=== PATIENT | male | born 1940 | race Caucasian/White ===

== ENCOUNTER 2017-05-19 09:33 | Inpatient (IN) | payer OTHER ==
[2017-05-19] MEDS ORDERED: SODIUM CHLORIDE 1,000 ML IV STA (10:00)
[2017-05-19] MEDS ORDERED: CEFTRIAXONE 1 GM in DEXTROSE 5%-WATER - 50 ML IVPB ONE (10:01)
[2017-05-19] MEDS ORDERED: AZITHROMYCIN IVPB 500 MG in DEXTROSE 5%-WATER - 250 ML IVPB ONE (10:01)
[2017-05-19] MEDS ORDERED: ACETAMINOPHEN 1000 MG/100 ML VIAL (NON FORMULARY) IVPB ONE (10:01)
[2017-05-19 10:07] VITALS: BMI 33.9
--- NOTE | 2017-05-19 10:09 | PDOC ---
History of Present Illness <Kim Persaud - Last Filed: 05/19/17 12:22> - General History Source: Patient Exam Limitations: No Limitations - History of Present Illness Initial Comments: 05/19/17 10:09 Patient is a 77M with history of CHF, afib (on no anticoagulation) here today complaining of shortness of breath. He describes a worsening cough over the past 2-3 days with worsening today. The cough is productive with red-tinged sputum. He reports chest pain associated with coughing. He reports fevers, chills. Denies history of COPD. Denies nausea, vomiting. Denies leg swelling, rash. PCP: Dianelys Admitting: Praveen Cards: Angelo <Cash Aguilar - Last Filed: 05/19/17 14:12> - General Chief Complaint: Shortness of Breath Stated Complaint: DIFFICULTY BREATHING Time Seen by Provider: 05/19/17 09:41 Past History <Kim Persaud - Last Filed: 05/19/17 12:22> - Past Medical History Anemia: No Asthma: No Cancer: No Cardiac Disorders: Yes (AFIB) CVA: No COPD: No CHF: No Dementia: No Diabetes: No GI Disorders: No Disorders: No HTN: Yes Hypercholesterolemia: Yes Liver Disease: No Seizures: No Thyroid Disease: No - Surgical History Abdominal Surgery: No Appendectomy: No Cardiac Surgery: No Cholecystectomy: No Lung Surgery: No Neurologic Surgery: No Orthopedic Surgery: No - Suicide/Smoking/Psychosocial Hx Smoking Status: No Smoking History: Former smoker Have you smoked in the past 12 months: No Number of Cigarettes Smoked Daily: 0 Hx Alcohol Use: Yes Drug/Substance Use Hx: No Substance Use Type: None Hx Substance Use Treatment: No <Cash Aguilar - Last Filed: 05/19/17 14:12> - Past Medical History Allergies/Adverse Reactions: Allergies Allergy/AdvReac Type Severity Reaction Status Date / Time No Known Allergies Allergy Verified 10/23/11 15:17 Home Medications: Ambulatory Orders Furosemide [Lasix] 40 mg PO DAILY 10/23/11 Amlodipine Bes/Olmesartan Med [Deanne 5-20 mg Tablet] 1 each PO DAILY 05/19/17 Aspirin [ASA -] 81 mg PO DAILY 05/19/17 Atorvastatin Calcium 80 mg PO DAILY 05/19/17 Dabigatran Etexilate Mesylate [Pradaxa -] 150 mg PO BID 05/19/17 Metoprolol Tartrate 50 mg PO BID 05/19/17 Review of Systems - Review of Systems Comments:: 05/19/17 10:11 GENERAL/CONSTITUTIONAL: No fever or chills. No weakness. HEAD, EYES, EARS, NOSE AND THROAT: No change in vision. No sore throat. CARDIOVASCULAR: Positive for chest pain and shortness of breath RESPIRATORY: Positive for cough, hemoptysis. GASTROINTESTINAL: No nausea, vomiting, diarrhea or constipation. GENITOURINARY: No dysuria, frequency, or change in urination. MUSCULOSKELETAL: No joint or muscle swelling or pain. No neck or back pain. SKIN: No rash NEUROLOGIC: No headache, vertigo, loss of consciousness, or change in strength/ sensation. ALLERGIC/IMMUNOLOGIC: No hives or skin allergy. <Cash Aguilar - Last Filed: 05/19/17 14:12> *Physical Exam - Vital Signs Last Vital Signs Temp Pulse Resp BP Pulse Ox 101.3 F H 127 H 22 159/80 94 L 05/19/17 09:58 05/19/17 11:32 05/19/17 11:32 05/19/17 11:32 05/19/17 11:32 <Kim Persaud - Last Filed: 05/19/17 12:22> - Physical Exam Comments: 05/19/17 10:13 GENERAL: Awake, alert, and fully oriented, in moderate distress HEAD: No signs of trauma, normocephalic, atraumatic EYES: PERRLA, EOMI, sclera anicteric, conjunctiva clear ENT: Auricles normal inspection, hearing grossly normal, nares patent, oropharynx clear without exudates. Moist mucosa NECK: Normal ROM, supple, no lymphadenopathy, JVD, or masses LUNGS: Tachypneic, speaks full sentences, rhonchi bilaterally HEART: Regular rate and rhythm, normal S1 and S2, no murmurs, rubs or gallops, peripheral pulses normal and equal bilaterally. ABDOMEN: Soft, nontender, normoactive bowel sounds. No guarding, no rebound. No masses EXTREMITIES: Normal inspection, Normal range of motion, no edema. No clubbing or cyanosis. NEUROLOGICAL: Cranial nerves II through XII grossly intact. Normal speech, no focal sensorimotor deficits SKIN: Warm, Dry, normal turgor, no rashes or lesions noted. <Cash Aguilar - Last Filed: 05/19/17 14:12> ED Treatment Course - LABORATORY CBC & Chemistry Diagram: 05/19/17 10:30 05/19/17 10:30 - ADDITIONAL ORDERS Additional order review: Laboratory Results 05/19/17 05/19/17 05/19/17 11:05 10:30 10:30 PT with INR 12.50 H INR 1.11 PTT (Actin FS) 27.9 D Sodium 137 Potassium 3.4 L D Chloride 103 Carbon Dioxide 24 Anion Gap 10 BUN 17 D Creatinine 0.9 D Creat Clearance w eGFR > 60 Random Glucose 93 Lactic Acid 1.5 Calcium 8.2 L Total Bilirubin 0.6 D AST 17 ALT 15 D Alkaline Phosphatase 80 D Troponin I 0.07 H D Total Protein 6.5 Albumin 3.6 Urine Color Urine Appearance Urine pH Ur Specific [place] Urine Protein Urine Glucose (UA) Urine Ketones Urine Blood Urine Nitrite Urine Bilirubin Urine Urobilinogen Ur Leukocyte Esterase 05/19/17 10:05 PT with INR INR PTT (Actin FS) Sodium Potassium Chloride Carbon Dioxide Anion Gap BUN Creatinine Creat Clearance w eGFR Random Glucose Lactic Acid Calcium Total Bilirubin AST ALT Alkaline Phosphatase Troponin I Total Protein Albumin Urine Color Yellow Urine Appearance Clear Urine pH 5.0 Ur Specific [place] 1.024 Urine Protein Negative Urine Glucose (UA) Negative Urine Ketones 2+ H Urine Blood Negative Urine Nitrite Negative Urine Bilirubin Negative Urine Urobilinogen 4.0 e.u/dl Ur Leukocyte Esterase Negative 05/19/17 10:50 Influenza Types A,B Antigen (BEULAH) - Final Nasopharyngeal Swab - Final 05/19/17 10:30 RBC 4.39 MCV 95.1 MCHC 33.6 RDW 14.0 MPV 7.9 D Neutrophils % 72.2 Lymphocytes % 15.1 D Monocytes % 10.6 H Eosinophils % 1.2 Basophils % 0.9 - Medications Given in the ED: ED Medications Discontinued Medications Generic Name Dose Route Start Last Admin Trade Name Freq PRN Reason Stop Dose Admin Acetaminophen 1,000 mg 05/19/17 10:01 05/19/17 10:50 Ofirmev Injection - IVPB 05/19/17 10:02 1,000 mg ONCE ONE Administration Albuterol/Ipratropium 1 amp 05/19/17 10:34 05/19/17 10:50 Duoneb - NEB 05/19/17 10:35 1 amp ONCE ONE Administration Azithromycin 500 mg/ Dextrose 250 mls @ 250 mls/hr 05/19/17 10:01 05/19/17 10 :50 IVPB 05/19/17 11:00 250 mls/hr ONCE ONE Administration Ceftriaxone Sodium 1 gm/ 50 mls @ 100 mls/hr 05/19/17 10:01 05/19/17 10:50 Dextrose IVPB 05/19/17 10:30 100 mls/hr ONCE ONE Administration Sodium Chloride 1,000 mls @ 1,000 mls/hr 05/19/17 10:00 05/19/17 10:50 Normal Saline - IV 05/19/17 10:59 1,000 mls/hr ASDIR STA Administration - Consult/PCP Time Called: 12:20 (placed a called to Dr. Morton) <Kim Persaud - Last Filed: 05/19/17 12:22> - LABORATORY CBC & Chemistry Diagram: 05/19/17 10:30 05/19/17 10:30 - RADIOLOGY Radiology Studies Ordered: Category Date Time Status CHEST X-RAY PORTABLE* [RAD] Stat Radiology 05/19/17 10:00 Ordered <Cash Aguilar - Last Filed: 05/19/17 14:12> Medical Decision Making - Critical Care Time Total Critical Care Time (minutes): 30 Critical Care Statement: The care of this patient involved high complexity decision making to prevent further life threatening deterioration of the patient 's condition and/or to evaluate & treat vital organ system(s) failure or risk of failure. - Medical Decision Making 05/19/17 10:15 Patient is 77M with history of CHF and afib (no anticoagulation) here today complaining of respiratory distress. Febrile to 102, tachycardic, tachypneic, BP stable. Bedside ultrasound shows normal lung sliding with no b-lines or signs of CHF exacerbation. Differential diagnosis is weighted towards sepsis secondary to pneumonia. Will cover with ceftriaxone and azithromycin, patient has no recent hospitalization or antibiotic use, coming from [facility]. Will treat with 1L of fluids and re-evaluate, not doing full dose of fluids upfront given patient's CHF history. Septic order set initiated. 05/19/17 10:21 EKG shows atrial fibrillation with rvr, rate 125. No st elevations/depressions. Left axis deviation. Q waves in inferior leads, old when compared to prior EKG. Believe patient's afib with rvr is secondary to fever and fluid status. Will not attempt to rate control. Will use tylenol and fluids to address likely root cause of tachycardia. 05/19/17 10:41 CXR shows increased lung markings, no hyperexpansion. No clear infiltrate, but concerned for right lower lobe. No signs of heart failure. Will give patient duoneb. 05/19/17 11:42 Flu negative. 05/19/17 11:43 Laboratory Tests 05/19/17 05/19/17 05/19/17 10:05 10:30 10:30 WBC 5.7 Hgb 14.0 Hct 41.7 Plt Count 175 D INR 1.11 Potassium BUN Creatinine Creat Clearance w eGFR Urine Nitrite Negative Ur Leukocyte Esterase Negative 05/19/17 10:30 WBC Hgb Hct Plt Count INR Potassium 3.4 L D BUN 17 D Creatinine 0.9 D Creat Clearance w eGFR > 60 Urine Nitrite Ur Leukocyte Esterase CBC normal. INR normal. CMP shows mild hypokalemia. UA clear. Troponin and lactic acid pending. 05/19/17 12:08 Laboratory Tests 05/19/17 05/19/17 10:30 11:05 Lactic Acid 1.5 Troponin I 0.07 H D Troponin elevated, suspect demand. Lactic acid normal. 05/19/17 12:11 Patient reassessed, reports breathing easier. Less tachypneic. HR is low 100s. 05/19/17 12:[address] Morton. 05/19/17 14:12 Patient now afebrile. HR in 90s. <Cash Aguilar - Last Filed: 05/19/17 14:12> *DC/Admit/Observation/Transfer <Kim Persaud - Last Filed: 05/19/17 12:22> - Discharge Dispostion Admit: Yes <Cash Aguilar - Last Filed: 05/19/17 14:12> Diagnosis at time of Disposition: Pneumonia - Discharge Dispostion Condition at time of disposition: Stable
[2017-05-19] MEDS ORDERED: CEFTRIAXONE 1 GM/50 ML BAG ONE (10:16)
[2017-05-19] MEDS ORDERED: ACETAMINOPHEN INJECTION 100 ML IVPB ONE (10:16)
[2017-05-19] MEDS ORDERED: AZITHROMYCIN IVPB 250 ML IVPB ONE (10:16)
--- NOTE | 2017-05-19 10:20 | PDOC ---
Attending Attestation - Resident Resident Name: Cash Aguilar - ED Attending Attestation I have performed the following: I have examined & evaluated the patient, The case was reviewed & discussed with the resident, I agree w/resident's findings & plan, Exceptions are as noted - HPI HPI: 05/19/17 10:20 77y M hx of hx ov CHF, afib (not on ac), presents with complaint of worsening cough proiductive of red tingued sputum, and cp associated with his coughs, no associated leg swelling. +fever/chlils, no hx of n/v, copd, abd pain, n/v on exam: general: moderate respiratory distress cardiac: tachcyardic, irregular pulm: diffuse wheezing, no rales, moderate respiratory distress abd: soft nontender ext: trace edema, neg homans b/l suspect afib w/ rvr is in response to fever likely pna will obtain sepsis labs, cxr placed on gambling monitor will treat with antipyretic, fluids, abx anticipate admission - Physicial Exam PE: 05/23/17 10:07 see above - Critical Care Time Total Critical Care Time: 35 Critical Care Statement: The care of this patient involved high complexity decision making to prevent further life threatening deterioration of the patient 's condition and/or to evaluate & treat vital organ system(s) failure or risk of failure. - Medical Decision Making 05/19/17 13:38 pts labs reviewed no leukoctosis noted HR improved relative flower presentation. will continue to monitor cxr noted for ?r sided basilar changes read as neg by rads, but based on the pts sypmtoms, fever, will treat for pna will admit for further management Heart Score/ECG Review - ECG Impressions Comment:: 05/19/17 10:27 Twelve-lead EKG was performed and reviewed by me. Irregular irregular rate of 125 Q waves in anterior leads Abnormal R wave progression Impression A. fib with RVR
[2017-05-19] MEDS ORDERED: ALBUTEROL SO4 2.5/IPRATROPIUM 0.5 INH SOL 3 ML VIAL.NEB. NEB ONE ×3 (10:34→21:00)
[2017-05-19 10:57] LABS: BASO % 0.9 % (0-2.0); EOS % 1.2 % (0-4.5); HEMATOCRIT 41.7 % (35.4-49); LYMPH % 15.1 % (8-40); MCHC 33.6 g/dl (32.0-35.9); MEAN CELL VOLUME 95.1 fl (80-96); MEAN PLT VOLUME 7.9 fl (7.5-11.1); MONO % 10.6 % (3.8-10.2); NEUT % 72.2 % (42.8-82.8); PLATELET COUNT 175 K/MM3 (134-434); RBC 4.39 M/mm3 (4.00-5.60); WHITE BLOOD COUNT 5.7 K/mm3 (4.0-10.0)
[2017-05-19 11:11] LABS: INR 1.11 (0.82-1.09); PROTHROMBIN TIME (PATIENT) 12.5 SEC (9.98-11.88)
[2017-05-19 11:13] LABS: URINE APPEARANCE CLEAR; URINE BILIRUBIN NEGATIVE (<2.0 mg/dL); URINE BLOOD NEGATIVE (NEGATIVE); URINE COLOR YELLOW; URINE GLUCOSE (UA) NEGATIVE (NEGATIVE); URINE KETONE 2+ (NEGATIVE); URINE LEUK ESTERASE NEGATIVE (NEGATIVE); URINE NITRITE NEGATIVE (NEGATIVE); URINE PROTEIN NEGATIVE (NEGATIVE); URINE UROBILINOGEN 4.0 E.U/dl mg/dL (0.2-1.0)
[2017-05-19 11:15] LABS: ACTIVATED PTT 27.9 SECONDS (26.9-34.4)
[2017-05-19 11:24] LABS: ALBUMIN 3.6 g/dl (3.4-5.0); ANION GAP 10 (8-16); BLOOD UREA NITROGEN 17 mg/dL (7-18); CALCIUM 8.2 mg/dL (8.5-10.1); CHLORIDE 103 mmol/L (98-107); CO2 24 mmol/L (21-32); CREATININE 0.9 mg/dL (0.7-1.3); GLUCOSE,RANDOM 93 mg/dL (74-106); POTASSIUM 3.4 mmol/L (3.5-5.1); SGOT/AST 17 U/L (15-37); SGPT/ALT 15 U/L (12-78); SODIUM 137 mmol/L (136-145)
[2017-05-19 11:26] LABS: ALK PHOS 80 U/L (45-117); BILIRUBIN,TOTAL 0.6 mg/dL (0.2-1.0); TOT PROT 6.5 g/dl (6.4-8.2)
[2017-05-19 13:13] LABS: VENOUS PH 7.4 (7.32-7.42)
--- NOTE | 2017-05-19 21:23 | EKG ---
Test Reason : Blood Pressure : / mmHG Vent. Rate : 125 BPM Atrial Rate : 077 BPM P-R Int : 000 ms QRS Dur : 092 ms QT Int : 320 ms P-R-T Axes : 000 -57 081 degrees QTc Int : 461 ms ATRIAL FIBRILLATION WITH RAPID VENTRICULAR RESPONSE LEFT AXIS DEVIATION INFERIOR INFARCT (CITED ON OR BEFORE 23-OCT-2011) ANTERIOR INFARCT (CITED ON OR BEFORE 23-OCT-2011) ABNORMAL ECG WHEN COMPARED WITH ECG OF 23-OCT-2011 16:16, T WAVE INVERSION LESS EVIDENT IN LATERAL LEADS Confirmed by HORACIO MASON MD ([id number]) on 05/19/2017 9:23:07 PM Referred By: Confirmed By:HORACIO MASON MD
[2017-05-19] MEDS ORDERED: FUROSEMIDE 40 MG TABLET (FP) PO SCH (21:30)
[2017-05-19] MEDS ORDERED: ACETAMINOPHEN 325 MG TABLET (FP) PO PRN (21:33)
[2017-05-19] MEDS: METOPROLOL TARTRATE 50 MG TABLET (FP) PO SCH (21:43)
[2017-05-19] MEDS: HEPARIN NA (PORCINE) 5,000 UNITS/ML 1ML VIAL SQ SCH (22:14)
[2017-05-19] MEDS ORDERED: diphenhydrAMINE HCL 25 MG CAPSULE (FP) PO ONE (22:15)
[2017-05-20] MEDS: ALBUTEROL SO4 2.5/IPRATROPIUM 0.5 INH SOL 3 ML VIAL.NEB. NEB PRN ×3 (05:30→20:45)
[2017-05-20 07:03] LABS: BASO % 0.5 % (0-2.0); EOS % 0.4 % (0-4.5); HEMATOCRIT 41.4 % (35.4-49); LYMPH % 18.3 % (8-40); MCH 32.2 pg (25.7-33.7); MCHC 33.7 g/dl (32.0-35.9); MEAN CELL VOLUME 95.6 fl (80-96); MEAN PLT VOLUME 8.4 fl (7.5-11.1); MONO % 12.9 % (3.8-10.2); NEUT % 67.9 % (42.8-82.8); PLATELET COUNT 183 K/MM3 (134-434); RBC 4.33 M/mm3 (4.00-5.60); RDW 14.5 % (11.9-15.9); WHITE BLOOD COUNT 6.6 K/mm3 (4.0-10.0)
[2017-05-20 07:33] LABS: ALBUMIN 3.6 g/dl (3.4-5.0); ANION GAP 8 (8-16); BLOOD UREA NITROGEN 13 mg/dL (7-18); CALCIUM 8.1 mg/dL (8.5-10.1); CHLORIDE 100 mmol/L (98-107); CO2 28 mmol/L (21-32); CREATININE 0.9 mg/dL (0.7-1.3); GLUCOSE,RANDOM 95 mg/dL (74-106); POTASSIUM 3.6 mmol/L (3.5-5.1); SGOT/AST 29 U/L (15-37); SGPT/ALT 15 U/L (12-78); SODIUM 136 mmol/L (136-145)
[2017-05-20 07:35] LABS: ALK PHOS 75 U/L (45-117); BILIRUBIN,TOTAL 0.7 mg/dL (0.2-1.0); TOT PROT 6.7 g/dl (6.4-8.2)
[2017-05-20] MEDS: METOPROLOL TARTRATE 50 MG TABLET (FP) PO SCH ×2 (08:10→21:44)
[2017-05-20] MEDS: TAMSULOSIN HCL 0.4 MG CAP.ER.24H (FP) PO SCH (08:10)
--- NOTE | 2017-05-20 08:49 | CON.CARD ---
Consult Consult Specialty:: Cardiology Referred by:: Dr. 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 As a result of his infection, he is now in AF w/ RVR. He denies chest pain, palps; No edema. + Cough productive of dark yellow phlegm, blood tinged for 2 days. 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: Alzheimer's, CVA, Dementia, Migraine, Multiple Sclerosis, Peripheral Neuropathy, Parkinson's, Seizure, Syncope, TIA, Vertigo, Other Cardio/Vascular: Yes: AFIB (not on chronic AC due to fall w/ brain bleed), CAD ( Prior PCI LAD approximately 5 years ago), CHF (chronic diastolic), HTN Gastrointestinal: No: Ascites, Cancer, Constipation, Crohn's Disease, Diverticulitis, Diverticulosis, Esophageal Varices, Gastritis, GERD, GI Bleed, Hemorrhoids, Hiatal Hernia, Inflamatory Bowel Disease, Irritable Bowel Disease, Pancreatitis, Peptic Ulcer Disease, Ulcerative Colitis, Other Hepatobiliary: No: Cirrhosis, Cholelithiasis, Cholecystitis, Choledocholithiasis , Hepatitis A, Hepatitis B, Hepatitis C, Other Renal/: Yes: BPH Infectious Disease: No: AIDS, C-Diff, Herpes Zoster, HIV, MRSA, STD's, Tuberculosis, VREF, Other Psych: No: Addictions, Anxiety, Bipolar, Depression, Panic, Psychosis, Schizophrenia, Other Musculoskeletal: No: Bursitis, Chronic low back pain, Hemiparesis, Hemiplegia, Osteoarthritis, Paraplegia, Other Rheumatology: No: Fibromyalgia, Gout, Lupus, Rheumatoid Arthritis, Sarcoidosis, Vasculitis, Other ENT: No: Allergic Rhinitis, Sinusitis, Other Endocrine: No: Alexys's Disease, James's Disease, Diabetes Insipidus, Diabetes Mellitus, Hyperparathyroidism, Hyperthyroidism, Hypothyroidism, Osteopenia, SIADH, Other Dermatology: No: Basal Cell, Cellulitis, Eczema, Melanoma, Psoriasis, Squamous Cell, Other - Alcohol/Substance Use Hx Alcohol Use: Yes - Smoking History Smoking history: Former smoker Have you smoked in the past 12 months: No Aproximately how many cigarettes per day: 0 - Social History 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 Medications - Allergies Allergies/Adverse Reactions: Allergies Allergy/AdvReac Type Severity Reaction Status Date / Time No Known Allergies Allergy Verified 10/23/11 15:17 - Home Medications Home Medications: Ambulatory Orders Furosemide [Lasix] 40 mg PO DAILY 10/23/11 Aspirin [ASA -] 81 mg PO DAILY 05/19/17 Losartan Potassium 50 mg PO DAILY 05/19/17 Metoprolol Tartrate 50 mg PO BID 05/19/17 Rosuvastatin Calcium 10 mg PO DAILY 05/19/17 Silodosin [Rapaflo] 8 mg PO DAILY 05/19/17 Family Disease History - Family Disease History Family History: Unremarkable (not pertinent to this presentation) Review of Systems - Review of Systems Constitutional: reports: Fever, Weakness HENT: denies: No Symptoms, Difficult Swallowing, Ear Discharge, Ear Pain, Epistaxis, Gingival Bleeding, Hearing Loss, Mouth Swelling, Nasal Congestion, Ocular Prosthesis, Throat Pain, Toothache, Ringing in Ears, Other Neck: denies: No Symptoms, Decreased ROM, Lumps, Pain on Movement, Stiffness, Swollen Glands, Tenderness, Other Cardiovascular: denies: No Symptoms, Chest Pain, Edema, Palpitations, Shortness of Breath, Other Respiratory: reports: Cough, SOB on Exertion Gastrointestinal: denies: No Symptoms, Abdominal Pain, Bloating, Constipation, Diarrhea, Dysphagia, Indigestion, Melena, Nausea, Rectal Bleeding, Vomiting, Vomiting Blood, Other Genitourinary: denies: No Symptoms, Burning, Discharge, Dysuria, Flank Pain, Frequency, Hematuria, Incontinence, Lesions, Menses, Pain, Testicular Mass, Testicular Pain, Testicular Swelling, Urgency, Vaginal Bleeding, Other Breasts: denies: No Symptoms Reported, See HPI, Breast Implants, Discharge from Nipple, Lumps, Pain, Skin Changes, Other Musculoskeletal: denies: No Symptoms, Back Pain, Crepitus, Decreased ROM, Extremity Pain, Joint Pain, Joint Swelling, Muscle Pain, Muscle Cramps, Muscle Weakness, Other Integumentary: denies: No Symptoms, Blister, Bruising, Change in Color, Eczema, Erythema, Incision, Lesions, Lump, Pallor, Pruritis, Rash, Wound, Other Hematology/Lymphatic: denies: No Symptoms, Easily Bruised, Excessive Bleeding, Swollen Glands, Other Psychiatric: denies: No Symptoms, Altered Sleep Pattern, Anxiety, Depression, Hallucinations, Panic, Paranoia, Suicidal, Other - Risk Factors Known Risk Factors: Yes: Hypertension, Smoking, Other (known CAD) Vital Signs: Vital Signs Temperature 98.1 F 05/20/17 06:00 Pulse Rate 113 H 05/20/17 06:00 Respiratory Rate 20 05/20/17 06:00 Blood Pressure 146/98 05/20/17 06:00 O2 Sat by Pulse Oximetry (%) 95 05/19/17 21:00 Constitutional: Yes: No Distress, Calm Eyes: Yes: Conjunctiva Clear Respiratory: Yes: Other (left basilar rales, scattered rhonchi) Gastrointestinal: Yes: Soft, Abdomen, Obese JVD: No Carotid Bruit: No Heart Sounds: Yes: S1, S2 (irregular) Edema: No Peripheral Pulses WNL: Yes Neurological: Yes: Alert, Oriented ...Motor Strength: WNL Psychiatric: Yes: WNL - Other Data Labs, Other Data: CBC, BMP 05/20/17 06:45 05/20/17 06:45 INR, PTT INR 1.11 (0.82-1.09) 05/19/17 10:30 Troponin, BNP 05/19/17 05/19/17 05/19/17 10:30 19:28 23:10 Troponin I 0.07 H D 0.06 H 0.10 H D 05/20/17 06:45 Troponin I Cancelled Troponin, BNP 05/19/17 05/19/17 05/19/17 10:30 19:28 23:10 Troponin I 0.07 H D 0.06 H 0.10 H D 05/20/17 06:45 Troponin I Cancelled Echo: Pending Prior Cardiac Procedures: PTCA with Stent Ejection Fraction %: LVEF > or = 40 % Imaging - Results Chest X-ray: Image Reviewed EKG: Image Reviewed (AFIB with NSST changes) Problem List - Problems (1) Pneumonia Code(s): J18.9 - PNEUMONIA, UNSPECIFIED ORGANISM Qualifiers: Lung location: unspecified part of lung (2) Atrial fibrillation Code(s): I48.91 - UNSPECIFIED ATRIAL FIBRILLATION Qualifiers: Atrial fibrillation type: permanent Qualified Code(s): I48.2 - Chronic atrial fibrillation (3) Chronic diastolic CHF (congestive heart failure) Code(s): I50.32 - CHRONIC DIASTOLIC (CONGESTIVE) HEART FAILURE (4) Hypertensive heart disease Code(s): I11.9 - HYPERTENSIVE HEART DISEASE WITHOUT HEART FAILURE Qualifiers: Heart failure type: diastolic Heart failure chronicity: chronic (5) Coronary artery disease Code(s): I25.10 - ATHSCL HEART DISEASE OF [place] CORONARY ARTERY W/O ANG PCTRS Qualifiers: Coronary Disease-Associated Artery/Lesion type: [place] artery Associated angina: without angina (6) Stented coronary artery Code(s): Z95.5 - PRESENCE OF CORONARY ANGIOPLASTY IMPLANT AND GRAFT (7) Elevated troponin Code(s): R74.8 - ABNORMAL LEVELS OF OTHER SERUM ENZYMES Assessment/Plan IMP: Atrial fibrillation, permanent, now with RVR secondary to fever from suspected PNA Underlying CAD with h/o PCI Chronic diastolic CHF, with mild exacerbation due to AF w/ RVR REC: 1. AF w/ RVR: -Lopressor 5mg IV x1 now -Cont. Metoprolol 50mg BID -Telemetry -Not on chronic full AC due to prior fall w/ traumatic ICH (patient refused to resume AC) -Cont. ASA 2. Suspected PNA: -Recommend chest CT as CXR does not reveal clear infiltrate -Pulmonary consult -Follow cultures -Abx as per PMD -Minimize use albuterol if possible. Recommend Xopenex if available. -DVT prophylaxis 3. Chronic diastolic CHF: -CXR does show mildly increased PVC -He will also be receiving extra volume with IV abx -Will switch lasix to 40 mg IV daily, BP can tolerate. -Daily lytes -repeat echo.
[2017-05-20] MEDS ORDERED: METOPROLOL TARTRATE 5 MG/5 ML VIAL IVPUSH PRN (08:57)
[2017-05-20] MEDS ORDERED: cefTRIAXone SODIUM 1 GM VIAL ONE (09:14)
[2017-05-20] MEDS ORDERED: DEXTROSE 5%-WATER - 50 ML IVPB ONE (09:14)
[2017-05-20] MEDS: LOSARTAN POTASSIUM 50 MG TABLET (FP) PO SCH (09:18)
[2017-05-20] MEDS: ROSUVASTATIN CA 10 MG TABLET (FP) PO SCH (09:19)
[2017-05-20] MEDS: ASPIRIN 81 MG CHEWABLE TABLETS PO SCH (09:19)
[2017-05-20] MEDS: HEPARIN NA (PORCINE) 5,000 UNITS/ML 1ML VIAL SQ SCH ×2 (09:21→21:44)
[2017-05-20] MEDS: AZITHROMYCIN IVPB 250 MG in DEXTROSE 5%-WATER - 250 ML IVPB SCH (09:24)
[2017-05-20] MEDS: CEFTRIAXONE 1 GM in DEXTROSE 5%-WATER - 50 ML IVPB SCH (09:24)
[2017-05-20] MEDS: FUROSEMIDE 40 MG/4 ML INJECTABLE VIAL IVPUSH SCH (09:27)
[2017-05-20] MEDS ORDERED: ALBUTEROL SO4 2.5/IPRATROPIUM 0.5 INH SOL 3 ML VIAL.NEB. NEB ONE (09:45)
--- NOTE | 2017-05-20 11:54 | PN ---
Progress Note (short form) - Note Progress Note: PULMONARY CONSULTATION DICTATED 05/20/17 IMP ACUTE HYPOXEMIC RESPIRATORY FAILURE PNEUMONIA/URI + TROPONINS LIKELY DEMAND ISCHEMIA AFIB CHF PLAN IV ANTIBIOTICS INHALED BRONCHODILATORS STEROIDS X 48HR CULTURES TREND TROPONINS CHEST CT CHECK BNP DR COLINDRES Problem List - Problems (1) Atrial fibrillation Code(s): I48.91 - UNSPECIFIED ATRIAL FIBRILLATION Qualifiers: Atrial fibrillation type: permanent Qualified Code(s): I48.2 - Chronic atrial fibrillation (2) Chronic diastolic CHF (congestive heart failure) Code(s): I50.32 - CHRONIC DIASTOLIC (CONGESTIVE) HEART FAILURE (3) Elevated troponin Code(s): R74.8 - ABNORMAL LEVELS OF OTHER SERUM ENZYMES (4) Hypertensive heart disease Code(s): I11.9 - HYPERTENSIVE HEART DISEASE WITHOUT HEART FAILURE Qualifiers: Heart failure type: diastolic Heart failure chronicity: chronic (5) Pneumonia Code(s): J18.9 - PNEUMONIA, UNSPECIFIED ORGANISM Qualifiers: Lung location: unspecified part of lung (6) Acute hypoxemic respiratory failure Code(s): J96.01 - ACUTE RESPIRATORY FAILURE WITH HYPOXIA
[2017-05-20 12:05] LABS: N-TERMINAL BNP 1501.52 pg/ml (5-450)
[2017-05-20] MEDS: methylPREDNISolone NA SUCC 40 MG/1 ML VIAL IVPUSH SCH ×3 (13:26→21:44)
--- NOTE | 2017-05-20 15:57 | HP ---
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, CVA, Dementia, Migraine, Multiple Sclerosis, Peripheral Neuropathy, Parkinson's, Seizure, Syncope, TIA, Vertigo, Other Cardiovascular: Yes: AFIB (not on chronic AC due to fall w/ brain bleed), CAD ( Prior PCI LAD approximately 5 years ago), CHF (chronic diastolic), HTN Gastrointestinal: No: Ascites, Cancer, Constipation, Crohn's Disease, Diverticulitis, Diverticulosis, Esophageal Varices, Gastritis, GERD, GI Bleed, Hemorrhoids, Hiatal Hernia, Inflamatory Bowel Disease, Irritable Bowel Disease, Pancreatitis, Peptic Ulcer Disease, Ulcerative Colitis, Other Hepatobiliary: No: Cirrhosis, Cholelithiasis, Cholecystitis, Choledocholithiasis , Hepatitis A, Hepatitis B, Hepatitis C, Other Renal/: Yes: BPH Infectious Disease: No: AIDS, C-Diff, Herpes Zoster, HIV, MRSA, STD's, Tuberculosis, VREF, Other Psych: No: Addictions, Anxiety, Bipolar, Depression, Panic, Psychosis, Schizophrenia, Other Musculoskeletal: No: Bursitis, Chronic low back pain, Hemiparesis, Hemiplegia, Osteoarthritis, Paraplegia, Other Rheumatology: No: Fibromyalgia, Gout, Lupus, Rheumatoid Arthritis, Sarcoidosis, Vasculitis, Other ENT: No: Allergic Rhinitis, Sinusitis, Other Endocrine: No: [place]'s Disease, [place]'s Disease, Diabetes Insipidus, Diabetes Mellitus, Hyperparathyroidism, Hyperthyroidism, Hypothyroidism, Osteopenia, SIADH, Other Dermatology: No: Basal Cell, Cellulitis, Eczema, Melanoma, Psoriasis, Squamous Cell, Other - Advance Directives Advance Directives: Yes: Health Care Proxy - Smoking History Smoking history: Former smoker Have you smoked in the past 12 months: No Aproximately how many cigarettes per day: 0 - Alcohol/Substance Use Hx Alcohol Use: Yes Home Medications - Allergies Allergies/Adverse Reactions: Allergies Allergy/AdvReac Type Severity Reaction Status Date / Time No Known Allergies Allergy Verified 10/23/11 15:17 - Home Medications Home Medications: Ambulatory Orders Furosemide [Lasix] 40 mg PO DAILY 10/23/11 Aspirin [ASA -] 81 mg PO DAILY 05/19/17 Losartan Potassium 50 mg PO DAILY 05/19/17 Metoprolol Tartrate 50 mg PO BID 05/19/17 Rosuvastatin Calcium 10 mg PO DAILY 05/19/17 Silodosin [Rapaflo] 8 mg PO DAILY 05/19/17 Physical Examination Vital Signs: Vital Signs Temperature 98.3 F 05/20/17 15:00 Pulse Rate 103 H 05/20/17 15:00 Respiratory Rate 22 05/20/17 15:00 Blood Pressure 135/88 05/20/17 15:00 O2 Sat by Pulse Oximetry (%) 95 05/20/17 09:00 Labs: CBC, BMP 05/20/17 06:45 05/20/17 06:45
--- NOTE | 2017-05-20 16:49 | CONS ---
PULMONARY CONSULTATION DATE OF CONSULTATION: 05/20/2017 REFERRING PHYSICIAN: Dr. Morton HISTORY: The patient is a 77-year-old white male with past medical history of CHF, atrial fibrillation, currently not on anticoagulation secondary to fall with [employer] bleed, history of hypertension, hypercholesterolemia, history of tobacco use, quit years ago. Admitted to [facility] with complaint of increasing shortness of breath and cough productive of blood-tinged sputum for 2-3 days. The patient denied any chest pain, including chest discomfort associated with the coughing. He also complained of some chills and fever. The patient presented to the emergency department. In the ER he was noted to be in moderate respiratory distress. He was placed on inhaled bronchodilators and antibiotic therapy for possible pneumonia. He also was started on Lasix. REVIEW OF SYSTEMS: Positive shortness of breath, positive cough, positive fever, positive chills, positive hemoptysis. Positive chest tightness. No abdominal pain, no nausea, no vomiting. No diarrhea. No lower extremity edema. SOCIAL HISTORY: History of tobacco use, quit years ago. 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 PHYSICAL EXAMINATION: General: The patient is a well-developed, well-nourished male, awake, alert, dyspneic but in no acute distress. Vital Signs: T-Max is 102.8, currently 98.1. Blood pressure 146/98, respiratory rate 20, O2 saturation 95% on 2 L. HEENT: Normocephalic, atraumatic. Neck: Supple. Heart: Irregular S1, S2. Chest: Diffuse bilateral wheezes, a few scattered rhonchi. Abdomen: Soft. Bowel sounds positive. Extremities: No cyanosis or edema. LABORATORY: WBC 6.6, hemoglobin 14, hematocrit 41.4, platelet count 183,000. INR 1.11. Venous blood gas: The pH 7.40, pCO2 38, pO2 of 51, bicarbonate 24. Last troponin 0.06, high is 0.1. Chest x-ray reveals no definitive infiltrates and effusions. There are increased markings bilaterally at the bases. IMPRESSION: Acute hypoxemic respiratory failure secondary to: 1. Rule out pneumonia, though was not evident on chest x-ray. 2. Rule out possible viral upper respiratory infection. 3. Positive troponins, likely demand ischemia. 4. Atrial fibrillation. 5. History of congestive heart failure. PLAN: Supplemental O2 with inhaled bronchodilators. Antibiotic therapy. Sputum for culture and sensitivity. CT scan of the chest. Troponins. Short course of IV steroids. Obtain echocardiogram. Will follow up closely with you. TRINA COLINDRES M.D. DUSTIN/[id number]
--- NOTE | 2017-05-20 17:48 | CON.ID ---
Consult Consult Specialty:: infectious diseases Referred by:: Reason for Consultation:: pneumonia - History of Present Illness Chief Complaint: cough,sob,sputum production History of Present Illness: 77M with history of CHF, afib admitted with complaining of shortness of breath. He describes a worsening cough over the past 2-3 days with worsening today. according to the patient the sob came on suddenly and then he started having cough. according to the patient he mentions that initially he had hemoptysis which has resolved now.The hemoptysis was not bright red. The cough was productive with red-tinged sputum. He reports chest pain associated with coughing. He reports fevers, chills. Denies history of COPD. Denies nausea, vomiting. 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: No: Alzheimer's, CVA, Dementia, Migraine, Multiple Sclerosis, Peripheral Neuropathy, Parkinson's, Seizure, Syncope, TIA, Vertigo, Other Cardio/Vascular: Yes: AFIB (not on chronic AC due to fall w/ brain bleed), CAD ( Prior PCI LAD approximately 5 years ago), CHF (chronic diastolic), HTN Gastrointestinal: No: Ascites, Cancer, Constipation, Crohn's Disease, Diverticulitis, Diverticulosis, Esophageal Varices, Gastritis, GERD, GI Bleed, Hemorrhoids, Hiatal Hernia, Inflamatory Bowel Disease, Irritable Bowel Disease, Pancreatitis, Peptic Ulcer Disease, Ulcerative Colitis, Other Hepatobiliary: No: Cirrhosis, Cholelithiasis, Cholecystitis, Choledocholithiasis , Hepatitis A, Hepatitis B, Hepatitis C, Other Renal/: Yes: BPH Infectious Disease: No: AIDS, C-Diff, Herpes Zoster, HIV, MRSA, STD's, Tuberculosis, VREF, Other Psych: No: Addictions, Anxiety, Bipolar, Depression, Panic, Psychosis, Schizophrenia, Other Musculoskeletal: No: Bursitis, Chronic low back pain, Hemiparesis, Hemiplegia, Osteoarthritis, Paraplegia, Other Rheumatology: No: Fibromyalgia, Gout, Lupus, Rheumatoid Arthritis, Sarcoidosis, Vasculitis, Other ENT: No: Allergic Rhinitis, Sinusitis, Other Endocrine: No: Alexys's Disease, James's Disease, Diabetes Insipidus, Diabetes Mellitus, Hyperparathyroidism, Hyperthyroidism, Hypothyroidism, Osteopenia, SIADH, Other Dermatology: No: Basal Cell, Cellulitis, Eczema, Melanoma, Psoriasis, Squamous Cell, Other - Alcohol/Substance Use Hx Alcohol Use: Yes - Smoking History Smoking history: Former smoker Have you smoked in the past 12 months: No Aproximately how many cigarettes per day: 0 - Social History 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 denies: Lethargy, Night Sweats, Unintentional Wgt. Loss Eyes: reports: No Symptoms HENT: reports: No Symptoms Neck: reports: No Symptoms Cardiovascular: reports: No Symptoms Respiratory: reports: Cough, Hemoptysis, SOB, SOB on Exertion Gastrointestinal: reports: No Symptoms. denies: Abdominal Pain, Constipation, Diarrhea Genitourinary: reports: No Symptoms. denies: Burning, Frequency Integumentary: reports: No Symptoms Neurological: reports: No Symptoms Endocrine: reports: No Symptoms Hematology/Lymphatic: reports: No Symptoms Psychiatric: reports: No Symptoms Physical Exam Vital Signs: Vital Signs Temperature 98.3 F 05/20/17 15:00 Pulse Rate 103 H 05/20/17 15:00 Respiratory Rate 22 05/20/17 15:00 Blood Pressure 135/88 05/20/17 15:00 O2 Sat by Pulse Oximetry (%) 95 05/20/17 09:00 Constitutional: Yes: Well Nourished, Calm, Mild Distress Eyes: Yes: Conjunctiva Clear HENT: Yes: Atraumatic, Normocephalic Neck: Yes: Supple, Trachea Midline Cardiovascular: Yes: Pulse Irregular, S1, S2 Respiratory: Yes: Cough, On Nasal O2, Poor Air Entry, SOB, SOB on Exertion. No : Accessory Muscle Use Gastrointestinal: Yes: Normal Bowel Sounds, Soft Musculoskeletal: Yes: WNL Extremities: Yes: WNL Neurological: Yes: Alert, Oriented Psychiatric: Yes: Alert, Oriented Labs: CBC, BMP 05/20/17 06:45 05/20/17 06:45 Imaging - Results Chest X-ray: Report Reviewed, Image Reviewed Assessment/Plan looking at the patients symptoms i am worried that aside from pneumonia patient could have something else going on patients xray does not show anything specific but he will need detail imaging studies as to why did he have hemoptysis he is currently on ceftriaxone and zithro and feeling better Problem List - Problems (1) Atrial fibrillation Code(s): I48.91 - UNSPECIFIED ATRIAL FIBRILLATION Qualifiers: Atrial fibrillation type: permanent Qualified Code(s): I48.2 - Chronic atrial fibrillation (2) Chronic diastolic CHF (congestive heart failure) Code(s): I50.32 - CHRONIC DIASTOLIC (CONGESTIVE) HEART FAILURE (3) Elevated troponin Code(s): R74.8 - ABNORMAL LEVELS OF OTHER SERUM ENZYMES (4) Hypertensive heart disease Code(s): I11.9 - HYPERTENSIVE HEART DISEASE WITHOUT HEART FAILURE Qualifiers: Heart failure type: diastolic Heart failure chronicity: chronic (5) Pneumonia Code(s): J18.9 - PNEUMONIA, UNSPECIFIED ORGANISM Qualifiers: Lung location: unspecified part of lung (6) Acute hypoxemic respiratory failure Code(s): J96.01 - ACUTE RESPIRATORY FAILURE WITH HYPOXIA plan continue current abx if patients cough does not improve will escalate abx ct scan--is ordered incentive kelly cx results noted will see what ct shows
[2017-05-21] MEDS: methylPREDNISolone NA SUCC 40 MG/1 ML VIAL IVPUSH SCH ×4 (04:30→22:06)
[2017-05-21 07:52] LABS: ANION GAP 12 (8-16); BLOOD UREA NITROGEN 17 mg/dL (7-18); CALCIUM 8.8 mg/dL (8.5-10.1); CHLORIDE 100 mmol/L (98-107); CO2 27 mmol/L (21-32); GLUCOSE,RANDOM 144 mg/dL (74-106); MAGNESIUM 2.5 mg/dL (1.8-2.4); POTASSIUM 3.8 mmol/L (3.5-5.1); SODIUM 139 mmol/L (136-145)
[2017-05-21 07:56] LABS: CREATININE 0.8 mg/dL (0.7-1.3)
[2017-05-21] MEDS: ALBUTEROL SO4 2.5/IPRATROPIUM 0.5 INH SOL 3 ML VIAL.NEB. NEB PRN ×2 (08:35→21:14)
--- NOTE | 2017-05-21 08:59 | PN ---
Progress Note, Physician Chief Complaint: Appears clinically improved. TELE: AF, now controlled History of Present Illness: CT: RUL PNA and RLL MASS! - Current Medication List Current Medications: Active Medications Acetaminophen (Tylenol -) 650 mg PO Q6H PRN PRN Reason: FEVER Last Admin: 05/19/17 21:43 Dose: 650 mg Albuterol/Ipratropium (Duoneb -) 1 amp NEB Q6H PRN PRN Reason: SHORTNESS OF BREATH Last Admin: 05/20/17 20:45 Dose: 1 amp Aspirin (Asa -) 81 mg PO DAILY [facility] Last Admin: 05/20/17 09:19 Dose: 81 mg Furosemide (Lasix Injection -) 40 mg IVPUSH DAILY [facility] Last Admin: 05/20/17 09:27 Dose: 40 mg Heparin Sodium (Porcine) (Heparin -) 5,000 unit SQ BID [facility] Last Admin: 05/20/17 21:44 Dose: 5,000 unit Azithromycin 250 mg/ Dextrose 250 mls @ 250 mls/hr IVPB DAILY [facility] Last Admin: 05/20/17 09:24 Dose: 250 mls/hr Ceftriaxone Sodium 1 gm/ (Dextrose) 50 mls @ 100 mls/hr IVPB DAILY [facility] Last Admin: 05/20/17 09:24 Dose: 100 mls/hr Losartan Potassium (Cozaar -) 50 mg PO DAILY [facility] Last Admin: 05/20/17 09:18 Dose: 50 mg Methylprednisolone Sodium Succinate (Solu-Medrol -) 40 mg IVPUSH Q6H-IV [facility] Last Admin: 05/21/17 04:30 Dose: 40 mg Metoprolol Tartrate (Lopressor -) 50 mg PO BID [facility] Last Admin: 05/20/17 21:44 Dose: 50 mg Metoprolol Tartrate (Lopressor Injection -) 5 mg IVPUSH Q4H PRN PRN Reason: HYPERTENSION Rosuvastatin Calcium (Crestor -) 10 mg PO DAILY [facility] Last Admin: 05/20/17 09:19 Dose: 10 mg Tamsulosin HCl (Flomax -) 0.4 mg PO DAILY@0830 [facility] Last Admin: 05/20/17 08:10 Dose: 0.4 mg - Objective Vital Signs: Vital Signs Temperature 97.6 F 05/21/17 06:00 Pulse Rate 84 05/21/17 06:00 Respiratory Rate 20 05/21/17 06:00 Blood Pressure 132/96 05/21/17 06:00 O2 Sat by Pulse Oximetry (%) 96 05/20/17 21:00 Constitutional: Yes: Calm Eyes: Yes: Conjunctiva Clear Cardiovascular: Yes: Pulse Irregular Respiratory: Yes: Other (bilateral rales with mild expiratory wheezing) Gastrointestinal: Yes: Soft Edema: No Neurological: Yes: Alert, Oriented ...Motor Strength: WNL Labs: CBC, BMP 05/20/17 06:45 05/21/17 06:57 INR, PTT INR 1.11 (0.82-1.09) 05/19/17 10:30 Microbiology 05/19/17 10:05 Blood - Peripheral Venous Blood Culture - Preliminary NO GROWTH OBTAINED AFTER 24 HOURS, INCUBATION TO CONTINUE FOR 4 DAYS. 05/19/17 10:05 Blood - Peripheral Venous Blood Culture - Preliminary NO GROWTH OBTAINED AFTER 24 HOURS, INCUBATION TO CONTINUE FOR 4 DAYS. Laboratory Tests 05/19/17 05/19/17 05/19/17 10:30 19:28 23:10 WBC Hgb Plt Count INR 1.11 Sodium Potassium BUN Magnesium Creatine Kinase 181 423 H Troponin I 0.06 H 0.10 H D 05/20/17 05/20/17 05/20/17 06:45 06:45 22:00 WBC 6.6 Hgb 14.0 Plt Count 183 INR Sodium 136 Potassium 3.6 BUN 13 D Magnesium Creatine Kinase 589 H 591 H Troponin I 0.07 H D 0.04 D 05/21/17 06:57 WBC Hgb Plt Count INR Sodium 139 Potassium 3.8 BUN 17 D Magnesium 2.5 H D Creatine Kinase 447 H Troponin I 0.06 H D - ....Imaging Other: Other (ECHO: NORMAL LV FXN AND NO SIG VALVE DISEASE) Problem List - Problems (1) Pneumonia Code(s): J18.9 - PNEUMONIA, UNSPECIFIED ORGANISM Qualifiers: Lung location: unspecified part of lung (2) Atrial fibrillation Code(s): I48.91 - UNSPECIFIED ATRIAL FIBRILLATION Qualifiers: Atrial fibrillation type: permanent Qualified Code(s): I48.2 - Chronic atrial fibrillation (3) Chronic diastolic CHF (congestive heart failure) Code(s): I50.32 - CHRONIC DIASTOLIC (CONGESTIVE) HEART FAILURE (4) Hypertensive heart disease Code(s): I11.9 - HYPERTENSIVE HEART DISEASE WITHOUT HEART FAILURE Qualifiers: Heart failure type: diastolic Heart failure chronicity: chronic (5) Coronary artery disease Code(s): I25.10 - ATHSCL HEART DISEASE OF [place] CORONARY ARTERY W/O ANG PCTRS Qualifiers: Coronary Disease-Associated Artery/Lesion type: [place] artery Associated angina: without angina (6) Stented coronary artery Code(s): Z95.5 - PRESENCE OF CORONARY ANGIOPLASTY IMPLANT AND GRAFT (7) Elevated troponin Code(s): R74.8 - ABNORMAL LEVELS OF OTHER SERUM ENZYMES Assessment/Plan IMP: Atrial fibrillation, permanent, now with RVR secondary to fever from suspected PNA Underlying CAD with h/o PCI Chronic diastolic CHF, with mild exacerbation due to AF w/ RVR PNA, RUL on CT RLL Lung Mass Elevated TnI REC: 1. AF w/ RVR: -triggered by infection -Cont. Metoprolol 50mg BID -Telemetry reveals improved rate with improvement in volume status after IV Lasix -Not on chronic full AC due to prior fall w/ traumatic ICH (patient refused to resume AC) -Cont. ASA 2. PNA: RUL confirmed on CT; RLL Mass -Pulmonary following -Follow cultures -Abx as per PMD -Minimize use albuterol if possible. Recommend Xopenex if available. -DVT prophylaxis -Will need outpatient work up of RLL mass when acute PNA resolved. 3. Chronic diastolic CHF with acute exacerbation: -Mildly volume overloaded, likely triggered by infection leading to AF w/ RVR -He will also be receiving extra volume with IV abx -Continue lasix to 40 mg IV daily -Daily lytes -repeat echo shows normal LV function 4. Minimally elevated TnI: -Likely due to infection/SIRS/fever driving AF with RVR and demand ischemia causing mild acute on chronic diastolic CHF. Continue ASA. Doubt primary ACS event as the enzyme trend is flat.
[2017-05-21] MEDS ORDERED: cefTRIAXone SODIUM 1 GM VIAL ONE (09:34)
[2017-05-21] MEDS ORDERED: DEXTROSE 5%-WATER - 50 ML IVPB ONE (09:35)
[2017-05-21] MEDS: CEFTRIAXONE 1 GM in DEXTROSE 5%-WATER - 50 ML IVPB SCH (09:46)
[2017-05-21] MEDS: ASPIRIN 81 MG CHEWABLE TABLETS PO SCH (09:46)
[2017-05-21] MEDS: AZITHROMYCIN IVPB 250 MG in DEXTROSE 5%-WATER - 250 ML IVPB SCH (09:46)
[2017-05-21] MEDS: FUROSEMIDE 40 MG/4 ML INJECTABLE VIAL IVPUSH SCH (09:47)
[2017-05-21] MEDS: TAMSULOSIN HCL 0.4 MG CAP.ER.24H (FP) PO SCH (09:47)
[2017-05-21] MEDS: METOPROLOL TARTRATE 50 MG TABLET (FP) PO SCH ×3 (09:47→22:06)
[2017-05-21] MEDS: ROSUVASTATIN CA 10 MG TABLET (FP) PO SCH (09:48)
[2017-05-21] MEDS: LOSARTAN POTASSIUM 50 MG TABLET (FP) PO SCH (09:48)
[2017-05-21] MEDS: HEPARIN NA (PORCINE) 5,000 UNITS/ML 1ML VIAL SQ SCH ×2 (09:48→22:05)
--- NOTE | 2017-05-21 13:15 | PN ---
Progress Note (short form) - Note Progress Note: Resting in NAD. Appears comfortable. No acute events overnight. Intake & Output 05/18/17 05/19/17 05/20/17 05/21/17 23:59 23:59 23:59 23:59 Intake Total 730 250 Output Total 1150 200 Balance -420 50 Weight 210 lb Last Vital Signs Temp Pulse Resp BP Pulse Ox 97.7 F 95 H 21 118/78 96 05/21/17 09:50 05/21/17 09:50 05/21/17 09:50 05/21/17 09:50 05/20/17 21:00 Active Medications Acetaminophen (Tylenol -) 650 mg PO Q6H PRN PRN Reason: FEVER Last Admin: 05/19/17 21:43 Dose: 650 mg Albuterol/Ipratropium (Duoneb -) 1 amp NEB Q6H PRN PRN Reason: SHORTNESS OF BREATH Last Admin: 05/21/17 08:35 Dose: 1 amp Aspirin (Asa -) 81 mg PO DAILY [facility] [place] Last Admin: 05/21/17 09:46 Dose: 81 mg Furosemide (Lasix Injection -) 40 mg IVPUSH DAILY [facility] [place] Last Admin: 05/21/17 09:47 Dose: 40 mg Heparin Sodium (Porcine) (Heparin -) 5,000 unit SQ BID [facility] [place] Last Admin: 05/21/17 09:48 Dose: 5,000 unit Azithromycin 250 mg/ Dextrose 250 mls @ 250 mls/hr IVPB DAILY [facility] [place] Last Admin: 05/21/17 09:46 Dose: 250 mls/hr Ceftriaxone Sodium 1 gm/ (Dextrose) 50 mls @ 100 mls/hr IVPB DAILY [facility] [place] Last Admin: 05/21/17 09:46 Dose: 100 mls/hr Losartan Potassium (Cozaar -) 50 mg PO DAILY [facility] [place] Last Admin: 05/21/17 09:48 Dose: 50 mg Methylprednisolone Sodium Succinate (Solu-Medrol -) 40 mg IVPUSH Q6H-IV [facility] [place] Last Admin: 05/21/17 09:47 Dose: 40 mg Metoprolol Tartrate (Lopressor -) 50 mg PO BID [facility] [place] Last Admin: 05/21/17 09:47 Dose: 50 mg Metoprolol Tartrate (Lopressor Injection -) 5 mg IVPUSH Q4H PRN PRN Reason: HYPERTENSION Rosuvastatin Calcium (Crestor -) 10 mg PO DAILY [facility] [place] Last Admin: 05/21/17 09:48 Dose: 10 mg Tamsulosin HCl (Flomax -) 0.4 mg PO DAILY@0830 [facility] [place] Last Admin: 05/21/17 09:47 Dose: 0.4 mg Constitutional: Yes: NAD Eyes: Yes: Conjunctiva Clear Cardiovascular: Yes: Pulse Irregular Respiratory: Yes: bilateral rales and rhonchi Gastrointestinal: Yes: Soft Edema: No Neurological: Yes: Alert, Oriented ...Motor Strength: WNL Labs: Laboratory Results - last 24 hr 05/20/17 05/21/17 22:00 06:57 Sodium 139 Potassium 3.8 Chloride 100 Carbon Dioxide 27 Anion Gap 12 BUN 17 D Creatinine 0.8 Random Glucose 144 H D Calcium 8.8 Magnesium 2.5 H D Creatine Kinase 591 H 447 H Creatine Kinase Index 1.3 1.6 CK-MB (CK-2) 7.881 H 7.354 H Troponin I 0.04 D 0.06 H D Problem List - Problems (1) Atrial fibrillation Code(s): I48.91 - UNSPECIFIED ATRIAL FIBRILLATION Qualifiers: Atrial fibrillation type: permanent Qualified Code(s): I48.2 - Chronic atrial fibrillation (2) Chronic diastolic CHF (congestive heart failure) Code(s): I50.32 - CHRONIC DIASTOLIC (CONGESTIVE) HEART FAILURE (3) Elevated troponin Code(s): R74.8 - ABNORMAL LEVELS OF OTHER SERUM ENZYMES (4) Hypertensive heart disease Code(s): I11.9 - HYPERTENSIVE HEART DISEASE WITHOUT HEART FAILURE Qualifiers: Heart failure type: diastolic Heart failure chronicity: chronic (5) Pneumonia Code(s): J18.9 - PNEUMONIA, UNSPECIFIED ORGANISM Qualifiers: Lung location: unspecified part of lung (6) Acute hypoxemic respiratory failure Code(s): J96.01 - ACUTE RESPIRATORY FAILURE WITH HYPOXIA IMP ACUTE HYPOXEMIC RESPIRATORY FAILURE MULTILOBAR PNEUMONIA/URI + TROPONINS LIKELY DEMAND ISCHEMIA AFIB CHF PLAN ANTIBIOTICS PER ID INHALED BRONCHODILATORS STEROIDS X 48HR FOLLOW CULTURES WILL NEED FOLLOW UP CHEST IMAGING AFTER D/C TO DOCUMENT RESOLUTION OF CT FINDINGS DR LITTLE
--- NOTE | 2017-05-21 14:31 | PN ---
Progress Note, Physician History of Present Illness: starting to feel better still with cough' minimal sputum production patient breathing better - Current Medication List Current Medications: Active Medications Acetaminophen (Tylenol -) 650 mg PO Q6H PRN PRN Reason: FEVER Last Admin: 05/19/17 21:43 Dose: 650 mg Albuterol/Ipratropium (Duoneb -) 1 amp NEB Q6H PRN PRN Reason: SHORTNESS OF BREATH Last Admin: 05/21/17 08:35 Dose: 1 amp Aspirin (Asa -) 81 mg PO DAILY [facility] Last Admin: 05/21/17 09:46 Dose: 81 mg Furosemide (Lasix Injection -) 40 mg IVPUSH DAILY [facility] Last Admin: 05/21/17 09:47 Dose: 40 mg Heparin Sodium (Porcine) (Heparin -) 5,000 unit SQ BID [facility] Last Admin: 05/21/17 09:48 Dose: 5,000 unit Azithromycin 250 mg/ Dextrose 250 mls @ 250 mls/hr IVPB DAILY [facility] Last Admin: 05/21/17 09:46 Dose: 250 mls/hr Ceftriaxone Sodium 1 gm/ (Dextrose) 50 mls @ 100 mls/hr IVPB DAILY [facility] Last Admin: 05/21/17 09:46 Dose: 100 mls/hr Losartan Potassium (Cozaar -) 50 mg PO DAILY [facility] Last Admin: 05/21/17 09:48 Dose: 50 mg Methylprednisolone Sodium Succinate (Solu-Medrol -) 40 mg IVPUSH Q6H-IV [facility] Last Admin: 05/21/17 09:47 Dose: 40 mg Metoprolol Tartrate (Lopressor -) 50 mg PO BID [facility] Last Admin: 05/21/17 09:47 Dose: 50 mg Metoprolol Tartrate (Lopressor Injection -) 5 mg IVPUSH Q4H PRN PRN Reason: HYPERTENSION Rosuvastatin Calcium (Crestor -) 10 mg PO DAILY [facility] Last Admin: 05/21/17 09:48 Dose: 10 mg Tamsulosin HCl (Flomax -) 0.4 mg PO DAILY@0830 [facility] Last Admin: 05/21/17 09:47 Dose: 0.4 mg - Objective Vital Signs: Vital Signs Temperature 97.9 F 05/21/17 13:50 Pulse Rate 91 H 05/21/17 13:50 Respiratory Rate 18 05/21/17 13:50 Blood Pressure 125/70 05/21/17 13:50 O2 Sat by Pulse Oximetry (%) 95 05/21/17 09:00 Constitutional: Yes: No Distress, Calm Cardiovascular: Yes: Regular Rate and Rhythm Respiratory: Yes: Regular, On Nasal O2, Poor Air Entry, Rhonchi Gastrointestinal: Yes: Normal Bowel Sounds, Soft Musculoskeletal: Yes: WNL Extremities: Yes: WNL Neurological: Yes: Alert, Oriented Psychiatric: Yes: Alert, Oriented Labs: CBC, BMP 05/20/17 06:45 05/21/17 06:57 INR, PTT INR 1.11 (0.82-1.09) 05/19/17 10:30 - ....Imaging Cat Scan: Report Reviewed, Image Reviewed Assessment/Plan Problem List - Problems (1) Atrial fibrillation Code(s): I48.91 - UNSPECIFIED ATRIAL FIBRILLATION Qualifiers: Atrial fibrillation type: permanent Qualified Code(s): I48.2 - Chronic atrial fibrillation (2) Chronic diastolic CHF (congestive heart failure) Code(s): I50.32 - CHRONIC DIASTOLIC (CONGESTIVE) HEART FAILURE (3) Elevated troponin Code(s): R74.8 - ABNORMAL LEVELS OF OTHER SERUM ENZYMES (4) Hypertensive heart disease Code(s): I11.9 - HYPERTENSIVE HEART DISEASE WITHOUT HEART FAILURE Qualifiers: Heart failure type: diastolic Heart failure chronicity: chronic (5) Pneumonia Code(s): J18.9 - PNEUMONIA, UNSPECIFIED ORGANISM Qualifiers: Lung location: unspecified part of lung (6) Acute hypoxemic respiratory failure Code(s): J96.01 - ACUTE RESPIRATORY FAILURE WITH HYPOXIA plan ct confirms pneumonia continue current abx incentive kelly rest as per the teams continue current mgmt
--- NOTE | 2017-05-22 01:10 | PN ---
Progress Note, Physician History of Present Illness: No new complaints - Current Medication List Current Medications: Active Medications Acetaminophen (Tylenol -) 650 mg PO Q6H PRN PRN Reason: FEVER Last Admin: 05/19/17 21:43 Dose: 650 mg Albuterol/Ipratropium (Duoneb -) 1 amp NEB Q6H PRN PRN Reason: SHORTNESS OF BREATH Last Admin: 05/21/17 21:14 Dose: 1 amp Aspirin (Asa -) 81 mg PO DAILY [facility] Last Admin: 05/21/17 09:46 Dose: 81 mg Furosemide (Lasix Injection -) 40 mg IVPUSH DAILY [facility] Last Admin: 05/21/17 09:47 Dose: 40 mg Heparin Sodium (Porcine) (Heparin -) 5,000 unit SQ BID [facility] Last Admin: 05/21/17 22:05 Dose: 5,000 unit Azithromycin 250 mg/ Dextrose 250 mls @ 250 mls/hr IVPB DAILY [facility] Last Admin: 05/21/17 09:46 Dose: 250 mls/hr Ceftriaxone Sodium 1 gm/ (Dextrose) 50 mls @ 100 mls/hr IVPB DAILY [facility] Last Admin: 05/21/17 09:46 Dose: 100 mls/hr Losartan Potassium (Cozaar -) 50 mg PO DAILY [facility] Last Admin: 05/21/17 09:48 Dose: 50 mg Methylprednisolone Sodium Succinate (Solu-Medrol -) 40 mg IVPUSH Q6H-IV [facility] Last Admin: 05/21/17 22:06 Dose: 40 mg Metoprolol Tartrate (Lopressor -) 50 mg PO BID [facility] Last Admin: 05/21/17 22:06 Dose: 50 mg Metoprolol Tartrate (Lopressor Injection -) 5 mg IVPUSH Q4H PRN PRN Reason: HYPERTENSION Rosuvastatin Calcium (Crestor -) 10 mg PO DAILY [facility] Last Admin: 05/21/17 09:48 Dose: 10 mg Tamsulosin HCl (Flomax -) 0.4 mg PO DAILY@0830 [facility] Last Admin: 05/21/17 09:47 Dose: 0.4 mg - Objective Vital Signs: Vital Signs Temperature 97.2 F L 05/21/17 17:00 Pulse Rate 99 H 05/21/17 17:00 Respiratory Rate 18 05/21/17 17:00 Blood Pressure 131/86 05/21/17 17:00 O2 Sat by Pulse Oximetry (%) 95 05/21/17 09:00 Neck: Yes: WNL, Supple Cardiovascular: Yes: WNL, Regular Rate and Rhythm Respiratory: Yes: Rhonchi Gastrointestinal: Yes: WNL, Normal Bowel Sounds, Soft Labs: CBC, BMP 05/20/17 06:45 05/21/17 06:57 INR, PTT INR 1.11 (0.82-1.09) 05/19/17 10:30 Problem List - Problems (1) Sepsis Code(s): A41.9 - SEPSIS, UNSPECIFIED ORGANISM (2) COPD (chronic obstructive pulmonary disease) Code(s): J44.9 - CHRONIC OBSTRUCTIVE PULMONARY DISEASE, UNSPECIFIED (3) Atrial fibrillation Code(s): I48.91 - UNSPECIFIED ATRIAL FIBRILLATION Qualifiers: Atrial fibrillation type: permanent Qualified Code(s): I48.2 - Chronic atrial fibrillation (4) BPH (benign prostatic hyperplasia) Code(s): N40.0 - BENIGN PROSTATIC HYPERPLASIA WITHOUT LOWER URINRY TRACT SYMP (5) Chronic diastolic CHF (congestive heart failure) Code(s): I50.32 - CHRONIC DIASTOLIC (CONGESTIVE) HEART FAILURE (6) Coronary artery disease Code(s): I25.10 - ATHSCL HEART DISEASE OF [place] CORONARY ARTERY W/O ANG PCTRS Qualifiers: Coronary Disease-Associated Artery/Lesion type: [place] artery Associated angina: without angina (7) Elevated troponin Code(s): R74.8 - ABNORMAL LEVELS OF OTHER SERUM ENZYMES (8) HTN (hypertension) Code(s): I10 - ESSENTIAL (PRIMARY) HYPERTENSION (9) Pneumonia Code(s): J18.9 - PNEUMONIA, UNSPECIFIED ORGANISM Qualifiers: Lung location: unspecified part of lung (10) Stented coronary artery Code(s): Z95.5 - PRESENCE OF CORONARY ANGIOPLASTY IMPLANT AND GRAFT
[2017-05-22] MEDS: methylPREDNISolone NA SUCC 40 MG/1 ML VIAL IVPUSH SCH ×4 (03:30→21:57)
[2017-05-22] MEDS: ALBUTEROL SO4 2.5/IPRATROPIUM 0.5 INH SOL 3 ML VIAL.NEB. NEB PRN ×2 (09:03→14:32)
--- NOTE | 2017-05-22 09:16 | PN ---
Progress Note, Physician Chief Complaint: sitting up, alert, no acute distress History of Present Illness: TELE: rate controlled AF - Current Medication List Current Medications: Active Medications Acetaminophen (Tylenol -) 650 mg PO Q6H PRN PRN Reason: FEVER Last Admin: 05/19/17 21:43 Dose: 650 mg Albuterol/Ipratropium (Duoneb -) 1 amp NEB Q6H PRN PRN Reason: SHORTNESS OF BREATH Last Admin: 05/22/17 09:03 Dose: 1 amp Aspirin (Asa -) 81 mg PO DAILY [facility] Last Admin: 05/21/17 09:46 Dose: 81 mg Furosemide (Lasix Injection -) 40 mg IVPUSH DAILY [facility] Last Admin: 05/21/17 09:47 Dose: 40 mg Heparin Sodium (Porcine) (Heparin -) 5,000 unit SQ BID [facility] Last Admin: 05/21/17 22:05 Dose: 5,000 unit Azithromycin 250 mg/ Dextrose 250 mls @ 250 mls/hr IVPB DAILY [facility] Last Admin: 05/21/17 09:46 Dose: 250 mls/hr Ceftriaxone Sodium 1 gm/ (Dextrose) 50 mls @ 100 mls/hr IVPB DAILY [facility] Last Admin: 05/21/17 09:46 Dose: 100 mls/hr Losartan Potassium (Cozaar -) 50 mg PO DAILY [facility] Last Admin: 05/21/17 09:48 Dose: 50 mg Methylprednisolone Sodium Succinate (Solu-Medrol -) 40 mg IVPUSH Q6H-IV [facility] Last Admin: 05/22/17 03:30 Dose: 40 mg Metoprolol Tartrate (Lopressor -) 50 mg PO BID [facility] Last Admin: 05/21/17 22:06 Dose: 50 mg Metoprolol Tartrate (Lopressor Injection -) 5 mg IVPUSH Q4H PRN PRN Reason: HYPERTENSION Rosuvastatin Calcium (Crestor -) 10 mg PO DAILY [facility] Last Admin: 05/21/17 09:48 Dose: 10 mg Tamsulosin HCl (Flomax -) 0.4 mg PO DAILY@0830 [facility] Last Admin: 05/21/17 09:47 Dose: 0.4 mg - Objective Vital Signs: Vital Signs Temperature 97.5 F L 05/22/17 06:00 Pulse Rate 75 05/22/17 06:00 Respiratory Rate 20 05/22/17 06:00 Blood Pressure 118/64 03/28/18 06:00 O2 Sat by Pulse Oximetry (%) 93 L 05/21/17 21:00 Constitutional: Yes: No Distress, Calm Eyes: Yes: Conjunctiva Clear Cardiovascular: Yes: Pulse Irregular Respiratory: Yes: Other (bilateral rhonchi and scattered expiratory wheezing) Gastrointestinal: Yes: Soft Edema: Yes Edema: LLE: Trace, RLE: Trace Neurological: Yes: Alert, Oriented Labs: CBC, BMP 05/20/17 06:45 05/21/17 06:57 INR, PTT INR 1.11 (0.82-1.09) 05/19/17 10:30 - ....Imaging EKG: Image Reviewed Problem List - Problems (1) Pneumonia Code(s): J18.9 - PNEUMONIA, UNSPECIFIED ORGANISM Qualifiers: Lung location: unspecified part of lung (2) Atrial fibrillation Code(s): I48.91 - UNSPECIFIED ATRIAL FIBRILLATION Qualifiers: Atrial fibrillation type: permanent Qualified Code(s): I48.2 - Chronic atrial fibrillation (3) Chronic diastolic CHF (congestive heart failure) Code(s): I50.32 - CHRONIC DIASTOLIC (CONGESTIVE) HEART FAILURE (4) Hypertensive heart disease Code(s): I11.9 - HYPERTENSIVE HEART DISEASE WITHOUT HEART FAILURE Qualifiers: Heart failure type: diastolic Heart failure chronicity: chronic (5) Coronary artery disease Code(s): I25.10 - ATHSCL HEART DISEASE OF [place] CORONARY ARTERY W/O ANG PCTRS Qualifiers: Coronary Disease-Associated Artery/Lesion type: [place] artery Associated angina: without angina (6) Stented coronary artery Code(s): Z95.5 - PRESENCE OF CORONARY ANGIOPLASTY IMPLANT AND GRAFT (7) Elevated troponin Code(s): R74.8 - ABNORMAL LEVELS OF OTHER SERUM ENZYMES Assessment/Plan IMP: Atrial fibrillation, permanent, now with RVR secondary to fever from suspected PNA Underlying CAD with h/o PCI Chronic diastolic CHF, with mild exacerbation due to AF w/ RVR PNA, RUL on CT RLL Lung Mass Elevated TnI REC: 1. AF w/ RVR: -triggered by infection -Cont. Metoprolol 50mg BID -Telemetry reveals improved rate with improvement in volume status after IV Lasix -Not on chronic full AC due to prior fall w/ traumatic ICH (patient refused to resume AC) -Cont. ASA 2. PNA: RUL confirmed on CT; RLL Mass -Pulmonary following -Follow cultures -Abx as per PMD -Minimize use albuterol if possible. Recommend Xopenex if available. -DVT prophylaxis -Will need outpatient work up of RLL mass when acute PNA resolved. 3. Chronic diastolic CHF with acute exacerbation: -Mildly volume overloaded, likely triggered by infection leading to AF w/ RVR -He will also be receiving extra volume with IV abx -Continue lasix to 40 mg IV daily -Daily lytes -repeat echo shows normal LV function 4. Minimally elevated TnI: -Likely due to infection/SIRS/fever driving AF with RVR and demand ischemia causing mild acute on chronic diastolic CHF. Continue ASA. Doubt primary ACS event as the enzyme trend is flat.
[2017-05-22] MEDS: LOSARTAN POTASSIUM 50 MG TABLET (FP) PO SCH (09:26)
[2017-05-22] MEDS: FUROSEMIDE 40 MG/4 ML INJECTABLE VIAL IVPUSH SCH (09:26)
[2017-05-22] MEDS: ASPIRIN 81 MG CHEWABLE TABLETS PO SCH (09:26)
[2017-05-22] MEDS: TAMSULOSIN HCL 0.4 MG CAP.ER.24H (FP) PO SCH (09:26)
[2017-05-22] MEDS: HEPARIN NA (PORCINE) 5,000 UNITS/ML 1ML VIAL SQ SCH ×2 (09:26→21:56)
[2017-05-22] MEDS: METOPROLOL TARTRATE 50 MG TABLET (FP) PO SCH ×2 (09:26→21:56)
[2017-05-22] MEDS ORDERED: DEXTROSE 5%-WATER - 50 ML IVPB ONE (09:30)
[2017-05-22] MEDS ORDERED: cefTRIAXone SODIUM 1 GM VIAL ONE (09:30)
[2017-05-22] MEDS: CEFTRIAXONE 1 GM in DEXTROSE 5%-WATER - 50 ML IVPB SCH (10:15)
[2017-05-22] MEDS: ROSUVASTATIN CA 10 MG TABLET (FP) PO SCH (10:15)
[2017-05-22] MEDS: AZITHROMYCIN IVPB 250 MG in DEXTROSE 5%-WATER - 250 ML IVPB SCH (10:43)
--- NOTE | 2017-05-22 12:14 | PN ---
Progress Note, Physician History of Present Illness: PULMONARY ALERT,FEELING BETTER,LESS DYSPNEIC,LESS COUGH,-CP - Current Medication List Current Medications: Active Medications Acetaminophen (Tylenol -) 650 mg PO Q6H PRN PRN Reason: FEVER Last Admin: 05/19/17 21:43 Dose: 650 mg Albuterol/Ipratropium (Duoneb -) 1 amp NEB Q6H PRN PRN Reason: SHORTNESS OF BREATH Last Admin: 05/22/17 09:03 Dose: 1 amp Aspirin (Asa -) 81 mg PO DAILY [facility] Last Admin: 05/22/17 09:26 Dose: 81 mg Furosemide (Lasix Injection -) 40 mg IVPUSH DAILY [facility] Last Admin: 05/22/17 09:26 Dose: 40 mg Heparin Sodium (Porcine) (Heparin -) 5,000 unit SQ BID [facility] Last Admin: 05/22/17 09:26 Dose: 5,000 unit Azithromycin 250 mg/ Dextrose 250 mls @ 250 mls/hr IVPB DAILY [facility] Last Admin: 05/21/17 09:46 Dose: 250 mls/hr Ceftriaxone Sodium 1 gm/ (Dextrose) 50 mls @ 100 mls/hr IVPB DAILY [facility] Last Admin: 05/22/17 10:15 Dose: 100 mls/hr Losartan Potassium (Cozaar -) 50 mg PO DAILY [facility] Last Admin: 05/22/17 09:26 Dose: 50 mg Methylprednisolone Sodium Succinate (Solu-Medrol -) 40 mg IVPUSH Q6H-IV [facility] Last Admin: 05/22/17 09:26 Dose: 40 mg Metoprolol Tartrate (Lopressor -) 50 mg PO BID [facility] Last Admin: 05/22/17 09:26 Dose: 50 mg Metoprolol Tartrate (Lopressor Injection -) 5 mg IVPUSH Q4H PRN PRN Reason: HYPERTENSION Last Admin: 05/22/17 09:31 Dose: 5 mg Rosuvastatin Calcium (Crestor -) 10 mg PO DAILY [facility] Last Admin: 05/22/17 10:15 Dose: 10 mg Tamsulosin HCl (Flomax -) 0.4 mg PO DAILY@0830 [facility] Last Admin: 05/22/17 09:26 Dose: 0.4 mg - Objective Vital Signs: Vital Signs Temperature 97.5 F L 05/22/17 06:00 Pulse Rate 145 H 05/22/17 09:31 Respiratory Rate 20 05/22/17 06:00 Blood Pressure 116/58 05/22/17 09:31 O2 Sat by Pulse Oximetry (%) 93 L 05/21/17 21:00 Constitutional: Yes: Well Nourished, Calm Eyes: Yes: WNL HENT: Yes: WNL Neck: Yes: WNL Cardiovascular: Yes: Pulse Irregular, S1, S2 Respiratory: Yes: Rhonchi (FEW SCATTERED RHONCHI) Gastrointestinal: Yes: Normal Bowel Sounds, Soft Extremities: Yes: WNL Edema: No Labs: CBC, BMP Problem List - Problems (1) Atrial fibrillation Code(s): I48.91 - UNSPECIFIED ATRIAL FIBRILLATION Qualifiers: Atrial fibrillation type: permanent Qualified Code(s): I48.2 - Chronic atrial fibrillation (2) Chronic diastolic CHF (congestive heart failure) Code(s): I50.32 - CHRONIC DIASTOLIC (CONGESTIVE) HEART FAILURE (3) Elevated troponin Code(s): R74.8 - ABNORMAL LEVELS OF OTHER SERUM ENZYMES (4) Hypertensive heart disease Code(s): I11.9 - HYPERTENSIVE HEART DISEASE WITHOUT HEART FAILURE Qualifiers: Heart failure type: diastolic Heart failure chronicity: chronic (5) Pneumonia Code(s): J18.9 - PNEUMONIA, UNSPECIFIED ORGANISM Qualifiers: Lung location: unspecified part of lung (6) Acute hypoxemic respiratory failure Code(s): J96.01 - ACUTE RESPIRATORY FAILURE WITH HYPOXIA Assessment/Plan IMP ACUTE HYPOXEMIC RESPIRATORY FAILURE MULTILOBAR PNEUMONIA + TROPONINS LIKELY DEMAND ISCHEMIA AFIB CHF PLAN IV ANTIBIOTICS INHALED BRONCHODILATORS STEROID TAPER TREND TROPONINS F/U CHEST CT OUTPATIENT 6-8 WKS TO DOCUMENT RESOLUTION OF INFILTRATES DR COLINDRES Problem List - Problems (1) Atrial fibrillation Code(s): I48.91 - UNSPECIFIED ATRIAL FIBRILLATION Qualifiers: Atrial fibrillation type: permanent Qualified Code(s): I48.2 - Chronic atrial fibrillation (2) Chronic diastolic CHF (congestive heart failure) Code(s): I50.32 - CHRONIC DIASTOLIC (CONGESTIVE) HEART FAILURE (3) Elevated troponin Code(s): R74.8 - ABNORMAL LEVELS OF OTHER SERUM ENZYMES (4) Hypertensive heart disease Code(s): I11.9 - HYPERTENSIVE HEART DISEASE WITHOUT HEART FAILURE Qualifiers: Heart failure type: diastolic Heart failure chronicity: chronic (5) Pneumonia Code(s): J18.9 - PNEUMONIA, UNSPECIFIED ORGANISM Qualifiers: Lung location: unspecified part of lung (6) Acute hypoxemic respiratory failure Code(s): J96.01 - ACUTE RESPIRATORY FAILURE WITH HYPOXIA
--- NOTE | 2017-05-22 12:46 | PN ---
Progress Note, Physician History of Present Illness: starting to feel better cough less no more hemoptysis noted patient feeling better - Current Medication List Current Medications: Active Medications Acetaminophen (Tylenol -) 650 mg PO Q6H PRN PRN Reason: FEVER Last Admin: 05/19/17 21:43 Dose: 650 mg Albuterol/Ipratropium (Duoneb -) 1 amp NEB Q6H PRN PRN Reason: SHORTNESS OF BREATH Last Admin: 05/22/17 09:03 Dose: 1 amp Aspirin (Asa -) 81 mg PO DAILY [facility] Last Admin: 05/22/17 09:26 Dose: 81 mg Furosemide (Lasix Injection -) 40 mg IVPUSH DAILY [facility] Last Admin: 05/22/17 09:26 Dose: 40 mg Heparin Sodium (Porcine) (Heparin -) 5,000 unit SQ BID [facility] Last Admin: 05/22/17 09:26 Dose: 5,000 unit Azithromycin 250 mg/ Dextrose 250 mls @ 250 mls/hr IVPB DAILY [facility] Last Admin: 05/21/17 09:46 Dose: 250 mls/hr Ceftriaxone Sodium 1 gm/ (Dextrose) 50 mls @ 100 mls/hr IVPB DAILY [facility] Last Admin: 05/22/17 10:15 Dose: 100 mls/hr Losartan Potassium (Cozaar -) 50 mg PO DAILY [facility] Last Admin: 05/22/17 09:26 Dose: 50 mg Methylprednisolone Sodium Succinate (Solu-Medrol -) 40 mg IVPUSH Q6H-IV [facility] Last Admin: 05/22/17 09:26 Dose: 40 mg Metoprolol Tartrate (Lopressor -) 50 mg PO BID [facility] Last Admin: 05/22/17 09:26 Dose: 50 mg Metoprolol Tartrate (Lopressor Injection -) 5 mg IVPUSH Q4H PRN PRN Reason: HYPERTENSION Last Admin: 05/22/17 09:31 Dose: 5 mg Rosuvastatin Calcium (Crestor -) 10 mg PO DAILY [facility] Last Admin: 05/22/17 10:15 Dose: 10 mg Tamsulosin HCl (Flomax -) 0.4 mg PO DAILY@0830 [facility] Last Admin: 05/22/17 09:26 Dose: 0.4 mg - Objective Vital Signs: Vital Signs Temperature 97.5 F L 05/22/17 06:00 Pulse Rate 145 H 05/22/17 09:31 Respiratory Rate 20 05/22/17 10:00 Blood Pressure 116/58 05/22/17 09:31 O2 Sat by Pulse Oximetry (%) 94 L 05/22/17 10:00 Constitutional: Yes: No Distress, Calm Cardiovascular: Yes: S1, S2 Respiratory: Yes: On Nasal O2, Poor Air Entry, Other Gastrointestinal: Yes: Normal Bowel Sounds, Soft Musculoskeletal: Yes: WNL Extremities: Yes: WNL Neurological: Yes: Alert, Oriented Psychiatric: Yes: Alert, Oriented Labs: CBC, BMP 05/20/17 06:45 05/21/17 06:57 INR, PTT INR 1.11 (0.82-1.09) 05/19/17 10:30 Assessment/Plan Problem List - Problems (1) Atrial fibrillation Code(s): I48.91 - UNSPECIFIED ATRIAL FIBRILLATION Qualifiers: Atrial fibrillation type: permanent Qualified Code(s): I48.2 - Chronic atrial fibrillation (2) Chronic diastolic CHF (congestive heart failure) Code(s): I50.32 - CHRONIC DIASTOLIC (CONGESTIVE) HEART FAILURE (3) Elevated troponin Code(s): R74.8 - ABNORMAL LEVELS OF OTHER SERUM ENZYMES (4) Hypertensive heart disease Code(s): I11.9 - HYPERTENSIVE HEART DISEASE WITHOUT HEART FAILURE Qualifiers: Heart failure type: diastolic Heart failure chronicity: chronic (5) Pneumonia Code(s): J18.9 - PNEUMONIA, UNSPECIFIED ORGANISM Qualifiers: Lung location: unspecified part of lung (6) Acute hypoxemic respiratory failure Code(s): J96.01 - ACUTE RESPIRATORY FAILURE WITH HYPOXIA plan continue current abx incentive kelly rest as per the teams continue current mgmt
--- NOTE | 2017-05-22 23:33 | PN ---
Progress Note, Physician History of Present Illness: Pt feeling better but not ambulating - Current Medication List Current Medications: Active Medications Acetaminophen (Tylenol -) 650 mg PO Q6H PRN PRN Reason: FEVER Last Admin: 05/19/17 21:43 Dose: 650 mg Albuterol/Ipratropium (Duoneb -) 1 amp NEB Q6H PRN PRN Reason: SHORTNESS OF BREATH Last Admin: 05/22/17 14:32 Dose: 1 amp Aspirin (Asa -) 81 mg PO DAILY [facility] Last Admin: 05/22/17 09:26 Dose: 81 mg Furosemide (Lasix Injection -) 40 mg IVPUSH DAILY [facility] Last Admin: 05/22/17 09:26 Dose: 40 mg Heparin Sodium (Porcine) (Heparin -) 5,000 unit SQ BID [facility] Last Admin: 05/22/17 21:56 Dose: 5,000 unit Azithromycin 250 mg/ Dextrose 250 mls @ 250 mls/hr IVPB DAILY [facility] Last Admin: 05/22/17 10:43 Dose: 250 mls/hr Ceftriaxone Sodium 1 gm/ (Dextrose) 50 mls @ 100 mls/hr IVPB DAILY [facility] Last Admin: 05/22/17 10:15 Dose: 100 mls/hr Losartan Potassium (Cozaar -) 50 mg PO DAILY [facility] Last Admin: 05/22/17 09:26 Dose: 50 mg Methylprednisolone Sodium Succinate (Solu-Medrol -) 40 mg IVPUSH Q6H-IV [facility] Last Admin: 05/22/17 21:57 Dose: 40 mg Metoprolol Tartrate (Lopressor -) 50 mg PO BID [facility] Last Admin: 05/22/17 21:56 Dose: 50 mg Metoprolol Tartrate (Lopressor Injection -) 5 mg IVPUSH Q4H PRN PRN Reason: HYPERTENSION Last Admin: 05/22/17 09:31 Dose: 5 mg Rosuvastatin Calcium (Crestor -) 10 mg PO DAILY [facility] Last Admin: 05/22/17 10:15 Dose: 10 mg Tamsulosin HCl (Flomax -) 0.4 mg PO DAILY@0830 [facility] Last Admin: 05/22/17 09:26 Dose: 0.4 mg - Objective Vital Signs: Vital Signs Temperature 98.2 F 05/22/17 17:00 Pulse Rate 88 05/22/17 17:00 Respiratory Rate 18 05/22/17 17:00 Blood Pressure 114/70 05/22/17 17:00 O2 Sat by Pulse Oximetry (%) 94 L 05/22/17 10:00 Neck: Yes: WNL, Supple Cardiovascular: Yes: WNL, Regular Rate and Rhythm Respiratory: Yes: Diminished Gastrointestinal: Yes: WNL, Normal Bowel Sounds, Soft Labs: CBC, BMP 05/20/17 06:45 05/21/17 06:57 INR, PTT INR 1.11 (0.82-1.09) 05/19/17 10:30 Problem List - Problems (1) Pneumonia Assessment/Plan: Cont IV ceftriaxone/zithro Cont nebulizers Cont IV steroids Spoke to pt and his nephrew about abnormal ct scan chest and need to repeat in 6 weeks Code(s): J18.9 - PNEUMONIA, UNSPECIFIED ORGANISM Qualifiers: Lung location: unspecified part of lung (2) Elevated troponin Assessment/Plan: Due to demand ischemia from rapid afib/pneumonia Code(s): R74.8 - ABNORMAL LEVELS OF OTHER SERUM ENZYMES (3) Acute on chronic diastolic heart failure Assessment/Plan: Cont IV lasix Monitor electrolytes Code(s): I50.33 - ACUTE ON CHRONIC DIASTOLIC (CONGESTIVE) HEART FAILURE (4) Atrial fibrillation Assessment/Plan: Heart rate controlled Cont B.B. Pt now on AC due to h/o ICH Code(s): I48.91 - UNSPECIFIED ATRIAL FIBRILLATION Qualifiers: Atrial fibrillation type: permanent Qualified Code(s): I48.2 - Chronic atrial fibrillation (5) HTN (hypertension) Code(s): I10 - ESSENTIAL (PRIMARY) HYPERTENSION (6) BPH (benign prostatic hyperplasia) Code(s): N40.0 - BENIGN PROSTATIC HYPERPLASIA WITHOUT LOWER URINRY TRACT SYMP (7) Acute hypoxemic respiratory failure Assessment/Plan: Resolved Code(s): J96.01 - ACUTE RESPIRATORY FAILURE WITH HYPOXIA
[2017-05-23] MEDS: methylPREDNISolone NA SUCC 40 MG/1 ML VIAL IVPUSH SCH ×5 (04:00→21:42)
[2017-05-23] MEDS: ALBUTEROL SO4 2.5/IPRATROPIUM 0.5 INH SOL 3 ML VIAL.NEB. NEB PRN (08:29)
--- NOTE | 2017-05-23 08:54 | PN ---
Progress Note, Physician Chief Complaint: feeling better History of Present Illness: TELE: Controlled AF - Current Medication List Current Medications: Active Medications Acetaminophen (Tylenol -) 650 mg PO Q6H PRN PRN Reason: FEVER Last Admin: 05/19/17 21:43 Dose: 650 mg Albuterol/Ipratropium (Duoneb -) 1 amp NEB Q6H PRN PRN Reason: SHORTNESS OF BREATH Last Admin: 05/23/17 08:29 Dose: 1 amp Aspirin (Asa -) 81 mg PO DAILY [facility] Last Admin: 05/22/17 09:26 Dose: 81 mg Furosemide (Lasix Injection -) 40 mg IVPUSH DAILY [facility] Last Admin: 05/22/17 09:26 Dose: 40 mg Heparin Sodium (Porcine) (Heparin -) 5,000 unit SQ BID [facility] Last Admin: 05/22/17 21:56 Dose: 5,000 unit Azithromycin 250 mg/ Dextrose 250 mls @ 250 mls/hr IVPB DAILY [facility] Last Admin: 05/22/17 10:43 Dose: 250 mls/hr Ceftriaxone Sodium 1 gm/ (Dextrose) 50 mls @ 100 mls/hr IVPB DAILY [facility] Last Admin: 05/22/17 10:15 Dose: 100 mls/hr Losartan Potassium (Cozaar -) 50 mg PO DAILY [facility] Last Admin: 05/22/17 09:26 Dose: 50 mg Methylprednisolone Sodium Succinate (Solu-Medrol -) 40 mg IVPUSH Q6H-IV [facility] Last Admin: 05/23/17 04:00 Dose: 40 mg Metoprolol Tartrate (Lopressor -) 50 mg PO BID [facility] Last Admin: 05/22/17 21:56 Dose: 50 mg Metoprolol Tartrate (Lopressor Injection -) 5 mg IVPUSH Q4H PRN PRN Reason: HYPERTENSION Last Admin: 05/22/17 09:31 Dose: 5 mg Rosuvastatin Calcium (Crestor -) 10 mg PO DAILY [facility] Last Admin: 05/22/17 10:15 Dose: 10 mg Tamsulosin HCl (Flomax -) 0.4 mg PO DAILY@0830 [facility] Last Admin: 05/22/17 09:26 Dose: 0.4 mg - Objective Vital Signs: Vital Signs Temperature 97.4 F L 05/23/17 06:00 Pulse Rate 88 05/23/17 06:00 Respiratory Rate 20 05/23/17 06:00 Blood Pressure 140/87 05/23/17 06:00 O2 Sat by Pulse Oximetry (%) 96 05/22/17 21:00 Constitutional: Yes: No Distress, Calm Cardiovascular: Yes: Pulse Irregular Respiratory: Yes: Other (resolved rales and wheezing) Gastrointestinal: Yes: Soft Edema: Yes Edema: LLE: 1+, RLE: 1+ Neurological: Yes: Alert, Oriented Psychiatric: Yes: WNL Labs: CBC, BMP 05/20/17 06:45 05/21/17 06:57 INR, PTT INR 1.11 (0.82-1.09) 05/19/17 10:30 - ....Imaging EKG: Image Reviewed Problem List - Problems (1) Pneumonia Code(s): J18.9 - PNEUMONIA, UNSPECIFIED ORGANISM Qualifiers: Lung location: unspecified part of lung (2) Atrial fibrillation Code(s): I48.91 - UNSPECIFIED ATRIAL FIBRILLATION Qualifiers: Atrial fibrillation type: permanent Qualified Code(s): I48.2 - Chronic atrial fibrillation (3) Chronic diastolic CHF (congestive heart failure) Code(s): I50.32 - CHRONIC DIASTOLIC (CONGESTIVE) HEART FAILURE (4) Hypertensive heart disease Code(s): I11.9 - HYPERTENSIVE HEART DISEASE WITHOUT HEART FAILURE Qualifiers: Heart failure type: diastolic Heart failure chronicity: chronic (5) Coronary artery disease Code(s): I25.10 - ATHSCL HEART DISEASE OF [place] CORONARY ARTERY W/O ANG PCTRS Qualifiers: Coronary Disease-Associated Artery/Lesion type: [place] artery Associated angina: without angina (6) Stented coronary artery Code(s): Z95.5 - PRESENCE OF CORONARY ANGIOPLASTY IMPLANT AND GRAFT (7) Elevated troponin Code(s): R74.8 - ABNORMAL LEVELS OF OTHER SERUM ENZYMES Assessment/Plan IMP: Atrial fibrillation, permanent, now with RVR secondary to fever from suspected PNA Underlying CAD with h/o PCI Chronic diastolic CHF, with mild exacerbation due to AF w/ RVR PNA, RUL on CT RLL Lung Mass Elevated TnI REC: 1. AF w/ RVR: -triggered by infection -Cont. Metoprolol 50mg BID -Telemetry reveals improved rate with improvement in volume status after IV Lasix -Not on chronic full AC due to prior fall w/ traumatic ICH (patient refused to resume AC) -Cont. ASA 2. PNA: RUL confirmed on CT; RLL Mass -Pulmonary following -Follow cultures -Abx as per PMD -Minimize use albuterol if possible. Recommend Xopenex if available. -DVT prophylaxis -Will need outpatient work up of RLL mass when acute PNA resolved. 3. Chronic diastolic CHF with acute exacerbation: -Mildly volume overloaded, likely triggered by infection leading to AF w/ RVR -He will also be receiving extra volume with IV abx -Continue lasix to 40 mg IV daily- plan to transition to PO in next 24- 48 hours -Daily lytes -repeat echo shows normal LV function 4. Minimally elevated TnI: -Likely due to infection/SIRS/fever driving AF with RVR and demand ischemia causing mild acute on chronic diastolic CHF. Continue ASA. Doubt primary ACS event as the enzyme trend is flat.
[2017-05-23] MEDS ORDERED: cefTRIAXone SODIUM 1 GM VIAL ONE (09:20)
[2017-05-23] MEDS ORDERED: DEXTROSE 5%-WATER - 50 ML IVPB ONE (09:20)
[2017-05-23] MEDS: HEPARIN NA (PORCINE) 5,000 UNITS/ML 1ML VIAL SQ SCH ×2 (09:53→21:42)
[2017-05-23] MEDS: FUROSEMIDE 40 MG/4 ML INJECTABLE VIAL IVPUSH SCH (09:53)
[2017-05-23] MEDS: CEFTRIAXONE 1 GM in DEXTROSE 5%-WATER - 50 ML IVPB SCH (09:56)
[2017-05-23] MEDS: LOSARTAN POTASSIUM 50 MG TABLET (FP) PO SCH (09:58)
[2017-05-23] MEDS: ASPIRIN 81 MG CHEWABLE TABLETS PO SCH (09:58)
[2017-05-23] MEDS: ROSUVASTATIN CA 10 MG TABLET (FP) PO SCH (09:59)
[2017-05-23] MEDS: TAMSULOSIN HCL 0.4 MG CAP.ER.24H (FP) PO SCH (09:59)
[2017-05-23] MEDS: METOPROLOL TARTRATE 50 MG TABLET (FP) PO SCH ×2 (09:59→21:42)
[2017-05-23] MEDS: AZITHROMYCIN IVPB 250 MG in DEXTROSE 5%-WATER - 250 ML IVPB SCH (10:50)
--- NOTE | 2017-05-23 15:32 | PN ---
Progress Note (short form) - Note Progress Note: Resting in NAD on 3 L NC. No acute events overnight. Feels better. Intake & Output 05/20/17 05/21/17 05/22/17 05/23/17 23:59 23:59 23:59 23:59 Intake Total 075 158 4224 100 Output Total 6502 776 4278 1050 Balance -420 110 30 -950 Last Vital Signs Temp Pulse Resp BP Pulse Ox 98.2 F 81 20 137/75 96 05/23/17 14:07 05/23/17 14:07 05/23/17 14:07 05/23/17 14:07 05/23/17 10:00 Active Medications Acetaminophen (Tylenol -) 650 mg PO Q6H PRN PRN Reason: FEVER Last Admin: 05/19/17 21:43 Dose: 650 mg Albuterol/Ipratropium (Duoneb -) 1 amp NEB Q6H PRN PRN Reason: SHORTNESS OF BREATH Last Admin: 05/23/17 08:29 Dose: 1 amp Aspirin (Asa -) 81 mg PO DAILY [facility] Last Admin: 05/23/17 09:58 Dose: 81 mg Furosemide (Lasix Injection -) 40 mg IVPUSH DAILY [facility] Last Admin: 05/23/17 09:53 Dose: 40 mg Heparin Sodium (Porcine) (Heparin -) 5,000 unit SQ BID [facility] Last Admin: 05/23/17 09:53 Dose: 5,000 unit Azithromycin 250 mg/ Dextrose 250 mls @ 250 mls/hr IVPB DAILY [facility] Last Admin: 05/22/17 10:43 Dose: 250 mls/hr Ceftriaxone Sodium 1 gm/ (Dextrose) 50 mls @ 100 mls/hr IVPB DAILY [facility] Last Admin: 05/23/17 09:56 Dose: 100 mls/hr Losartan Potassium (Cozaar -) 50 mg PO DAILY [facility] Last Admin: 05/23/17 09:58 Dose: 50 mg Methylprednisolone Sodium Succinate (Solu-Medrol -) 40 mg IVPUSH Q6H-IV [facility] Last Admin: 05/23/17 09:51 Dose: 40 mg Metoprolol Tartrate (Lopressor -) 50 mg PO BID [facility] Last Admin: 05/23/17 09:59 Dose: 50 mg Metoprolol Tartrate (Lopressor Injection -) 5 mg IVPUSH Q4H PRN PRN Reason: HYPERTENSION Last Admin: 05/22/17 09:31 Dose: 5 mg Rosuvastatin Calcium (Crestor -) 10 mg PO DAILY [facility] Last Admin: 05/23/17 09:59 Dose: 10 mg Tamsulosin HCl (Flomax -) 0.4 mg PO DAILY@0830 [facility] Last Admin: 05/23/17 09:59 Dose: 0.4 mg Constitutional: Yes: NAD Eyes: Yes: Conjunctiva Clear Cardiovascular: Yes: Pulse Irregular Respiratory: Yes: bilateral rales and rhonchi Gastrointestinal: Yes: Soft Edema: No Neurological: Yes: Alert, Oriented ...Motor Strength: WNL Labs: Problem List - Problems (1) Atrial fibrillation Code(s): I48.91 - UNSPECIFIED ATRIAL FIBRILLATION Qualifiers: Atrial fibrillation type: permanent Qualified Code(s): I48.2 - Chronic atrial fibrillation (2) Chronic diastolic CHF (congestive heart failure) Code(s): I50.32 - CHRONIC DIASTOLIC (CONGESTIVE) HEART FAILURE (3) Elevated troponin Code(s): R74.8 - ABNORMAL LEVELS OF OTHER SERUM ENZYMES (4) Hypertensive heart disease Code(s): I11.9 - HYPERTENSIVE HEART DISEASE WITHOUT HEART FAILURE Qualifiers: Heart failure type: diastolic Heart failure chronicity: chronic (5) Pneumonia Code(s): J18.9 - PNEUMONIA, UNSPECIFIED ORGANISM Qualifiers: Lung location: unspecified part of lung (6) Acute hypoxemic respiratory failure Code(s): J96.01 - ACUTE RESPIRATORY FAILURE WITH HYPOXIA IMP ACUTE HYPOXEMIC RESPIRATORY FAILURE MULTILOBAR PNEUMONIA/URI + TROPONINS LIKELY DEMAND ISCHEMIA AFIB CHF PLAN ANTIBIOTICS PER ID INHALED BRONCHODILATORS STEROID WEAN WILL NEED FOLLOW UP CHEST IMAGING AFTER D/C TO DOCUMENT RESOLUTION OF CT FINDINGS DR LITTLE
--- NOTE | 2017-05-23 15:41 | PN ---
Progress Note, Physician History of Present Illness: patient feeling much yaquelin cough less no complaints - Current Medication List Current Medications: Active Medications Acetaminophen (Tylenol -) 650 mg PO Q6H PRN PRN Reason: FEVER Last Admin: 05/19/17 21:43 Dose: 650 mg Albuterol/Ipratropium (Duoneb -) 1 amp NEB Q6H PRN PRN Reason: SHORTNESS OF BREATH Last Admin: 05/23/17 08:29 Dose: 1 amp Aspirin (Asa -) 81 mg PO DAILY [facility] Last Admin: 05/23/17 09:58 Dose: 81 mg Furosemide (Lasix Injection -) 40 mg IVPUSH DAILY [facility] Last Admin: 05/23/17 09:53 Dose: 40 mg Heparin Sodium (Porcine) (Heparin -) 5,000 unit SQ BID [facility] Last Admin: 05/23/17 09:53 Dose: 5,000 unit Azithromycin 250 mg/ Dextrose 250 mls @ 250 mls/hr IVPB DAILY [facility] Last Admin: 05/22/17 10:43 Dose: 250 mls/hr Ceftriaxone Sodium 1 gm/ (Dextrose) 50 mls @ 100 mls/hr IVPB DAILY [facility] Last Admin: 05/23/17 09:56 Dose: 100 mls/hr Losartan Potassium (Cozaar -) 50 mg PO DAILY [facility] Last Admin: 05/23/17 09:58 Dose: 50 mg Methylprednisolone Sodium Succinate (Solu-Medrol -) 40 mg IVPUSH Q12H [facility] Metoprolol Tartrate (Lopressor -) 50 mg PO BID [facility] Last Admin: 05/23/17 09:59 Dose: 50 mg Metoprolol Tartrate (Lopressor Injection -) 5 mg IVPUSH Q4H PRN PRN Reason: HYPERTENSION Last Admin: 05/22/17 09:31 Dose: 5 mg Rosuvastatin Calcium (Crestor -) 10 mg PO DAILY [facility] Last Admin: 05/23/17 09:59 Dose: 10 mg Tamsulosin HCl (Flomax -) 0.4 mg PO DAILY@0830 [facility] Last Admin: 05/23/17 09:59 Dose: 0.4 mg - Objective Vital Signs: Vital Signs Temperature 98.2 F 05/23/17 14:07 Pulse Rate 81 05/23/17 14:07 Respiratory Rate 20 05/23/17 14:07 Blood Pressure 137/75 05/23/17 14:07 O2 Sat by Pulse Oximetry (%) 96 05/23/17 10:00 Constitutional: Yes: No Distress, Calm Cardiovascular: Yes: S1, S2 Respiratory: Yes: Regular, On Nasal O2, Poor Air Entry Gastrointestinal: Yes: Normal Bowel Sounds, Soft Musculoskeletal: Yes: WNL Extremities: Yes: WNL Neurological: Yes: Alert, Oriented Psychiatric: Yes: Alert, Oriented Labs: CBC, BMP 05/20/17 06:45 05/21/17 06:57 INR, PTT INR 1.11 (0.82-1.09) 05/19/17 10:30 Assessment/Plan Problem List - Problems (1) Atrial fibrillation Code(s): I48.91 - UNSPECIFIED ATRIAL FIBRILLATION Qualifiers: Atrial fibrillation type: permanent Qualified Code(s): I48.2 - Chronic atrial fibrillation (2) Chronic diastolic CHF (congestive heart failure) Code(s): I50.32 - CHRONIC DIASTOLIC (CONGESTIVE) HEART FAILURE (3) Elevated troponin Code(s): R74.8 - ABNORMAL LEVELS OF OTHER SERUM ENZYMES (4) Hypertensive heart disease Code(s): I11.9 - HYPERTENSIVE HEART DISEASE WITHOUT HEART FAILURE Qualifiers: Heart failure type: diastolic Heart failure chronicity: chronic (5) Pneumonia Code(s): J18.9 - PNEUMONIA, UNSPECIFIED ORGANISM Qualifiers: Lung location: unspecified part of lung (6) Acute hypoxemic respiratory failure Code(s): J96.01 - ACUTE RESPIRATORY FAILURE WITH HYPOXIA plan continue current abx incentive kelly rest as per the teams continue current mgmt stop zithro after 5 days
--- NOTE | 2017-05-23 20:57 | PN ---
Progress Note, Physician History of Present Illness: Pt encouraged to ambulate - Current Medication List Current Medications: Active Medications Acetaminophen (Tylenol -) 650 mg PO Q6H PRN PRN Reason: FEVER Last Admin: 05/19/17 21:43 Dose: 650 mg Albuterol/Ipratropium (Duoneb -) 1 amp NEB Q6H PRN PRN Reason: SHORTNESS OF BREATH Last Admin: 05/23/17 08:29 Dose: 1 amp Aspirin (Asa -) 81 mg PO DAILY [facility] Last Admin: 05/23/17 09:58 Dose: 81 mg Furosemide (Lasix Injection -) 40 mg IVPUSH DAILY [facility] Last Admin: 05/23/17 09:53 Dose: 40 mg Heparin Sodium (Porcine) (Heparin -) 5,000 unit SQ BID [facility] Last Admin: 05/23/17 09:53 Dose: 5,000 unit Azithromycin 250 mg/ Dextrose 250 mls @ 250 mls/hr IVPB DAILY [facility] Last Admin: 05/23/17 10:50 Dose: 250 mls/hr Ceftriaxone Sodium 1 gm/ (Dextrose) 50 mls @ 100 mls/hr IVPB DAILY [facility] Last Admin: 05/23/17 09:56 Dose: 100 mls/hr Losartan Potassium (Cozaar -) 50 mg PO DAILY [facility] Last Admin: 05/23/17 09:58 Dose: 50 mg Methylprednisolone Sodium Succinate (Solu-Medrol -) 40 mg IVPUSH BID [facility] Last Admin: 05/23/17 15:49 Dose: Not Given Metoprolol Tartrate (Lopressor -) 50 mg PO BID [facility] Last Admin: 05/23/17 09:59 Dose: 50 mg Metoprolol Tartrate (Lopressor Injection -) 5 mg IVPUSH Q4H PRN PRN Reason: HYPERTENSION Last Admin: 05/22/17 09:31 Dose: 5 mg Rosuvastatin Calcium (Crestor -) 10 mg PO DAILY [facility] Last Admin: 05/23/17 09:59 Dose: 10 mg Tamsulosin HCl (Flomax -) 0.4 mg PO DAILY@0830 [facility] Last Admin: 05/23/17 09:59 Dose: 0.4 mg - Objective Vital Signs: Vital Signs Temperature 97.4 F L 05/23/17 20:51 Pulse Rate 98 H 05/23/17 20:51 Respiratory Rate 18 05/23/17 20:51 Blood Pressure 143/90 05/23/17 20:51 O2 Sat by Pulse Oximetry (%) 97 05/23/17 20:51 Constitutional: Yes: Well Nourished HENT: Yes: WNL Neck: Yes: WNL, Supple Cardiovascular: Yes: WNL, Regular Rate and Rhythm Respiratory: Yes: Other (Coarse bs b/l) Gastrointestinal: Yes: WNL, Normal Bowel Sounds, Soft, Abdomen, Obese Edema: No Labs: CBC, BMP 05/20/17 06:45 05/21/17 06:57 INR, PTT INR 1.11 (0.82-1.09) 05/19/17 10:30 Problem List - Problems (1) Pneumonia Assessment/Plan: Cont IV ceftriaxone/zithro Cont nebulizers Cont IV steroids Follow up ct scan as outpt to elevated abnormalities Code(s): J18.9 - PNEUMONIA, UNSPECIFIED ORGANISM Qualifiers: Lung location: unspecified part of lung (2) Elevated troponin Assessment/Plan: Due to demand ischemia from rapid afib/pneumonia Code(s): R74.8 - ABNORMAL LEVELS OF OTHER SERUM ENZYMES (3) Acute on chronic diastolic heart failure Assessment/Plan: Cont IV lasix Monitor electrolytes Code(s): I50.33 - ACUTE ON CHRONIC DIASTOLIC (CONGESTIVE) HEART FAILURE (4) Atrial fibrillation Assessment/Plan: Heart rate controlled Cont B.B. Pt not on AC due to h/o ICH Code(s): I48.91 - UNSPECIFIED ATRIAL FIBRILLATION Qualifiers: Atrial fibrillation type: permanent Qualified Code(s): I48.2 - Chronic atrial fibrillation (5) HTN (hypertension) Assessment/Plan: BP stable Code(s): I10 - ESSENTIAL (PRIMARY) HYPERTENSION (6) BPH (benign prostatic hyperplasia) Code(s): N40.0 - BENIGN PROSTATIC HYPERPLASIA WITHOUT LOWER URINRY TRACT SYMP (7) Acute hypoxemic respiratory failure Code(s): J96.01 - ACUTE RESPIRATORY FAILURE WITH HYPOXIA
[2017-05-24 08:17] LABS: BASO % 0.2 % (0-2.0); HEMATOCRIT 41.5 % (35.4-49); HEMOGLOBIN 13.9 GM/dL (11.7-16.9); LYMPH % 13.2 % (8-40); MCH 31.9 pg (25.7-33.7); MCHC 33.5 g/dl (32.0-35.9); MEAN CELL VOLUME 95.1 fl (80-96); MEAN PLT VOLUME 8.1 fl (7.5-11.1); MONO % 7.7 % (3.8-10.2); NEUT % 78.9 % (42.8-82.8); PLATELET COUNT 302 K/MM3 (134-434); RBC 4.36 M/mm3 (4.00-5.60); RDW 13.9 % (11.9-15.9); WHITE BLOOD COUNT 10.8 K/mm3 (4.0-10.0)
[2017-05-24] MEDS: ALBUTEROL SO4 2.5/IPRATROPIUM 0.5 INH SOL 3 ML VIAL.NEB. NEB PRN (08:30)
[2017-05-24 08:33] LABS: ALBUMIN 3.2 g/dl (3.4-5.0); ANION GAP 5 (8-16); BLOOD UREA NITROGEN 34 mg/dL (7-18); CALCIUM 8.6 mg/dL (8.5-10.1); CHLORIDE 102 mmol/L (98-107); CO2 32 mmol/L (21-32); GLUCOSE,RANDOM 105 mg/dL (74-106); POTASSIUM 4.3 mmol/L (3.5-5.1); SODIUM 139 mmol/L (136-145)
[2017-05-24 08:37] LABS: ALK PHOS 61 U/L (45-117); BILIRUBIN,TOTAL 0.4 mg/dL (0.2-1.0); CREATININE 0.9 mg/dL (0.7-1.3); SGOT/AST 33 U/L (15-37); SGPT/ALT 49 U/L (12-78); TOT PROT 6.2 g/dl (6.4-8.2)
--- NOTE | 2017-05-24 08:45 | PN ---
Progress Note, Physician Chief Complaint: ambulating, no acute distress - Current Medication List Current Medications: Active Medications Acetaminophen (Tylenol -) 650 mg PO Q6H PRN PRN Reason: FEVER Last Admin: 05/19/17 21:43 Dose: 650 mg Albuterol/Ipratropium (Duoneb -) 1 amp NEB Q6H PRN PRN Reason: SHORTNESS OF BREATH Last Admin: 05/24/17 08:30 Dose: 1 amp Aspirin (Asa -) 81 mg PO DAILY [facility] Last Admin: 05/23/17 09:58 Dose: 81 mg Furosemide (Lasix Injection -) 40 mg IVPUSH DAILY [facility] Last Admin: 05/23/17 09:53 Dose: 40 mg Heparin Sodium (Porcine) (Heparin -) 5,000 unit SQ BID [facility] Last Admin: 05/23/17 21:42 Dose: 5,000 unit Azithromycin 250 mg/ Dextrose 250 mls @ 250 mls/hr IVPB DAILY [facility] Last Admin: 05/23/17 10:50 Dose: 250 mls/hr Ceftriaxone Sodium 1 gm/ (Dextrose) 50 mls @ 100 mls/hr IVPB DAILY [facility] Last Admin: 05/23/17 09:56 Dose: 100 mls/hr Losartan Potassium (Cozaar -) 50 mg PO DAILY [facility] Last Admin: 05/23/17 09:58 Dose: 50 mg Methylprednisolone Sodium Succinate (Solu-Medrol -) 40 mg IVPUSH BID [facility] Last Admin: 05/23/17 21:42 Dose: 40 mg Metoprolol Tartrate (Lopressor -) 50 mg PO BID [facility] Last Admin: 05/23/17 21:42 Dose: 50 mg Metoprolol Tartrate (Lopressor Injection -) 5 mg IVPUSH Q4H PRN PRN Reason: HYPERTENSION Last Admin: 05/22/17 09:31 Dose: 5 mg Rosuvastatin Calcium (Crestor -) 10 mg PO DAILY [facility] Last Admin: 05/23/17 09:59 Dose: 10 mg Tamsulosin HCl (Flomax -) 0.4 mg PO DAILY@0830 [facility] Last Admin: 05/23/17 09:59 Dose: 0.4 mg - Objective Vital Signs: Vital Signs Temperature 97.6 F 05/24/17 06:00 Pulse Rate 66 05/24/17 06:00 Respiratory Rate 18 05/24/17 06:00 Blood Pressure 131/86 05/24/17 06:00 O2 Sat by Pulse Oximetry (%) 97 05/23/17 21:00 Constitutional: Yes: Calm Cardiovascular: Yes: Pulse Irregular Respiratory: Yes: Rhonchi Gastrointestinal: Yes: Soft Edema: Yes Edema: LLE: 1+, RLE: 1+ Neurological: Yes: Alert ...Motor Strength: WNL Labs: CBC, BMP 05/24/17 06:49 05/24/17 06:49 INR, PTT INR 1.11 (0.82-1.09) 05/19/17 10:30 Microbiology 05/19/17 10:05 Blood - Peripheral Venous Blood Culture - Preliminary NO GROWTH OBTAINED AFTER 48 HOURS, INCUBATION TO CONTINUE FOR 3 DAYS. 05/19/17 10:05 Blood - Peripheral Venous Blood Culture - Preliminary NO GROWTH OBTAINED AFTER 48 HOURS, INCUBATION TO CONTINUE FOR 3 DAYS. Laboratory Tests 05/24/17 05/24/17 06:49 06:49 WBC 10.8 H D Hgb 13.9 Plt Count 302 D Sodium 139 Potassium 4.3 BUN 34 H D Creatinine 0.9 Problem List - Problems (1) Pneumonia Code(s): J18.9 - PNEUMONIA, UNSPECIFIED ORGANISM Qualifiers: Lung location: unspecified part of lung (2) Atrial fibrillation Code(s): I48.91 - UNSPECIFIED ATRIAL FIBRILLATION Qualifiers: Atrial fibrillation type: permanent Qualified Code(s): I48.2 - Chronic atrial fibrillation (3) Chronic diastolic CHF (congestive heart failure) Code(s): I50.32 - CHRONIC DIASTOLIC (CONGESTIVE) HEART FAILURE (4) Hypertensive heart disease Code(s): I11.9 - HYPERTENSIVE HEART DISEASE WITHOUT HEART FAILURE Qualifiers: Heart failure type: diastolic Heart failure chronicity: chronic (5) Coronary artery disease Code(s): I25.10 - ATHSCL HEART DISEASE OF [place] CORONARY ARTERY W/O ANG PCTRS Qualifiers: Coronary Disease-Associated Artery/Lesion type: [place] artery Associated angina: without angina (6) Stented coronary artery Code(s): Z95.5 - PRESENCE OF CORONARY ANGIOPLASTY IMPLANT AND GRAFT (7) Elevated troponin Code(s): R74.8 - ABNORMAL LEVELS OF OTHER SERUM ENZYMES Assessment/Plan IMP: Atrial fibrillation, permanent, now with RVR secondary to fever from suspected PNA Underlying CAD with h/o PCI Chronic diastolic CHF, with mild exacerbation due to AF w/ RVR PNA, RUL on CT RLL Lung Mass Elevated TnI REC: 1. AF w/ RVR: -triggered by infection -Cont. Metoprolol 50mg BID -Tele now d/c'd -Not on chronic full AC due to prior fall w/ traumatic ICH (patient refused to resume AC) -Cont. ASA 2. PNA: RUL confirmed on CT; RLL Mass -Pulmonary following -Follow cultures -Abx as per PMD -Minimize use albuterol if possible. Recommend Xopenex if available. -DVT prophylaxis -Will need outpatient work up of RLL mass when acute PNA resolved. 3. Chronic diastolic CHF with acute exacerbation: -Mildly volume overloaded, likely triggered by infection leading to AF w/ RVR -He will also be receiving extra volume with IV abx -BUN bumped. D/C IV Lasix and switch to PO tomorrow -Daily lytes -repeat echo shows normal LV function 4. Minimally elevated TnI: -Likely due to infection/SIRS/fever driving AF with RVR and demand ischemia causing mild acute on chronic diastolic CHF. Continue ASA. Doubt primary ACS event as the enzyme trend is flat.
[2017-05-24] MEDS ORDERED: cefTRIAXone SODIUM 1 GM VIAL ONE (09:51)
[2017-05-24] MEDS ORDERED: PT OWN MED DRAWER 7, Y5N ONE (09:51)
[2017-05-24] MEDS ORDERED: DEXTROSE 5%-WATER - 50 ML IVPB ONE (09:52)
[2017-05-24] MEDS: TAMSULOSIN HCL 0.4 MG CAP.ER.24H (FP) PO SCH (09:53)
[2017-05-24] MEDS: methylPREDNISolone NA SUCC 40 MG/1 ML VIAL IVPUSH SCH ×2 (09:53→21:36)
[2017-05-24] MEDS: CEFTRIAXONE 1 GM in DEXTROSE 5%-WATER - 50 ML IVPB SCH (09:53)
[2017-05-24] MEDS: METOPROLOL TARTRATE 50 MG TABLET (FP) PO SCH ×2 (09:54→21:36)
[2017-05-24] MEDS: ROSUVASTATIN CA 10 MG TABLET (FP) PO SCH (09:54)
[2017-05-24] MEDS: HEPARIN NA (PORCINE) 5,000 UNITS/ML 1ML VIAL SQ SCH ×2 (09:54→21:38)
[2017-05-24] MEDS: AZITHROMYCIN IVPB 250 MG in DEXTROSE 5%-WATER - 250 ML IVPB SCH (09:54)
[2017-05-24] MEDS: LOSARTAN POTASSIUM 50 MG TABLET (FP) PO SCH (09:54)
[2017-05-24] MEDS: ASPIRIN 81 MG CHEWABLE TABLETS PO SCH (09:54)
--- NOTE | 2017-05-24 11:31 | PN ---
Progress Note, Physician History of Present Illness: PULMONARY ALERT,FEELING BETTER,LESS DYSPNEIC,-CP - Current Medication List Current Medications: Active Medications Acetaminophen (Tylenol -) 650 mg PO Q6H PRN PRN Reason: FEVER Last Admin: 05/19/17 21:43 Dose: 650 mg Albuterol/Ipratropium (Duoneb -) 1 amp NEB Q6H PRN PRN Reason: SHORTNESS OF BREATH Last Admin: 05/24/17 08:30 Dose: 1 amp Aspirin (Asa -) 81 mg PO DAILY [facility] Last Admin: 05/24/17 09:54 Dose: 81 mg Furosemide (Lasix -) 40 mg PO DAILY [facility] Heparin Sodium (Porcine) (Heparin -) 5,000 unit SQ BID [facility] Last Admin: 05/24/17 09:54 Dose: 5,000 unit Azithromycin 250 mg/ Dextrose 250 mls @ 250 mls/hr IVPB DAILY [facility] Last Admin: 05/24/17 09:54 Dose: Not Given Ceftriaxone Sodium 1 gm/ (Dextrose) 50 mls @ 100 mls/hr IVPB DAILY [facility] Last Admin: 05/24/17 09:53 Dose: 100 mls/hr Losartan Potassium (Cozaar -) 50 mg PO DAILY [facility] Last Admin: 05/24/17 09:54 Dose: 50 mg Methylprednisolone Sodium Succinate (Solu-Medrol -) 40 mg IVPUSH BID [facility] Last Admin: 05/24/17 09:53 Dose: 40 mg Metoprolol Tartrate (Lopressor -) 50 mg PO BID [facility] Last Admin: 05/24/17 09:54 Dose: 50 mg Metoprolol Tartrate (Lopressor Injection -) 5 mg IVPUSH Q4H PRN PRN Reason: HYPERTENSION Last Admin: 05/22/17 09:31 Dose: 5 mg Rosuvastatin Calcium (Crestor -) 10 mg PO DAILY [facility] Last Admin: 05/24/17 09:54 Dose: 10 mg Tamsulosin HCl (Flomax -) 0.4 mg PO DAILY@0830 [facility] Last Admin: 05/24/17 09:53 Dose: 0.4 mg - Objective Vital Signs: Vital Signs Temperature 97.6 F 05/24/17 06:00 Pulse Rate 66 05/24/17 06:00 Respiratory Rate 18 05/24/17 06:00 Blood Pressure 131/86 05/24/17 06:00 O2 Sat by Pulse Oximetry (%) 97 05/23/17 21:00 Constitutional: Yes: Well Nourished, Calm Eyes: Yes: WNL HENT: Yes: WNL Neck: Yes: WNL Cardiovascular: Yes: Pulse Irregular, S1, S2 Respiratory: Yes: Rales (SCATTERED CRACKLES PATRICIA) Gastrointestinal: Yes: Normal Bowel Sounds, Soft Extremities: Yes: WNL Edema: Yes Edema: LLE: Trace, RLE: Trace Labs: CBC, BMP 05/24/17 06:49 05/24/17 06:49 INR, PTT INR 1.11 (0.82-1.09) 05/19/17 10:30 Problem List - Problems (1) Atrial fibrillation Code(s): I48.91 - UNSPECIFIED ATRIAL FIBRILLATION Qualifiers: Atrial fibrillation type: permanent Qualified Code(s): I48.2 - Chronic atrial fibrillation (2) Chronic diastolic CHF (congestive heart failure) Code(s): I50.32 - CHRONIC DIASTOLIC (CONGESTIVE) HEART FAILURE (3) Elevated troponin Code(s): R74.8 - ABNORMAL LEVELS OF OTHER SERUM ENZYMES (4) Hypertensive heart disease Code(s): I11.9 - HYPERTENSIVE HEART DISEASE WITHOUT HEART FAILURE Qualifiers: Heart failure type: diastolic Heart failure chronicity: chronic (5) Pneumonia Code(s): J18.9 - PNEUMONIA, UNSPECIFIED ORGANISM Qualifiers: Lung location: unspecified part of lung (6) Acute hypoxemic respiratory failure Code(s): J96.01 - ACUTE RESPIRATORY FAILURE WITH HYPOXIA Assessment/Plan IMP ACUTE HYPOXEMIC RESPIRATORY FAILURE IMPROVING MULTILOBAR PNEUMONIA + TROPONINS LIKELY DEMAND ISCHEMIA AFIB CHF PLAN IV ANTIBIOTICS INHALED BRONCHODILATORS STEROID TAPER F/U CHEST CT OUTPATIENT 6-8 WKS TO DOCUMENT RESOLUTION OF INFILTRATES DR COLINDRES Problem List - Problems (1) Atrial fibrillation Code(s): I48.91 - UNSPECIFIED ATRIAL FIBRILLATION Qualifiers: Atrial fibrillation type: permanent Qualified Code(s): I48.2 - Chronic atrial fibrillation (2) Chronic diastolic CHF (congestive heart failure) Code(s): I50.32 - CHRONIC DIASTOLIC (CONGESTIVE) HEART FAILURE (3) Elevated troponin Code(s): R74.8 - ABNORMAL LEVELS OF OTHER SERUM ENZYMES (4) Hypertensive heart disease Code(s): I11.9 - HYPERTENSIVE HEART DISEASE WITHOUT HEART FAILURE Qualifiers: Heart failure type: diastolic Heart failure chronicity: chronic (5) Pneumonia Code(s): J18.9 - PNEUMONIA, UNSPECIFIED ORGANISM Qualifiers: Lung location: unspecified part of lung (6) Acute hypoxemic respiratory failure Code(s): J96.01 - ACUTE RESPIRATORY FAILURE WITH HYPOXIA
--- NOTE | 2017-05-24 15:22 | PN ---
Progress Note, Physician History of Present Illness: feeling much better occasional cough - Current Medication List Current Medications: Active Medications Acetaminophen (Tylenol -) 650 mg PO Q6H PRN PRN Reason: FEVER Last Admin: 05/19/17 21:43 Dose: 650 mg Albuterol/Ipratropium (Duoneb -) 1 amp NEB Q6H PRN PRN Reason: SHORTNESS OF BREATH Last Admin: 05/24/17 08:30 Dose: 1 amp Aspirin (Asa -) 81 mg PO DAILY [facility] Last Admin: 05/24/17 09:54 Dose: 81 mg Furosemide (Lasix -) 40 mg PO DAILY [facility] Heparin Sodium (Porcine) (Heparin -) 5,000 unit SQ BID [facility] Last Admin: 05/24/17 09:54 Dose: 5,000 unit Azithromycin 250 mg/ Dextrose 250 mls @ 250 mls/hr IVPB DAILY [facility] Last Admin: 05/24/17 09:54 Dose: Not Given Ceftriaxone Sodium 1 gm/ (Dextrose) 50 mls @ 100 mls/hr IVPB DAILY [facility] Last Admin: 05/24/17 09:53 Dose: 100 mls/hr Losartan Potassium (Cozaar -) 50 mg PO DAILY [facility] Last Admin: 05/24/17 09:54 Dose: 50 mg Methylprednisolone Sodium Succinate (Solu-Medrol -) 40 mg IVPUSH BID [facility] Last Admin: 05/24/17 09:53 Dose: 40 mg Metoprolol Tartrate (Lopressor -) 50 mg PO BID [facility] Last Admin: 05/24/17 09:54 Dose: 50 mg Metoprolol Tartrate (Lopressor Injection -) 5 mg IVPUSH Q4H PRN PRN Reason: HYPERTENSION Last Admin: 05/22/17 09:31 Dose: 5 mg Rosuvastatin Calcium (Crestor -) 10 mg PO DAILY [facility] Last Admin: 05/24/17 09:54 Dose: 10 mg Tamsulosin HCl (Flomax -) 0.4 mg PO DAILY@0830 [facility] Last Admin: 05/24/17 09:53 Dose: 0.4 mg - Objective Vital Signs: Vital Signs Temperature 97.0 F L 05/24/17 11:56 Pulse Rate 65 05/24/17 11:56 Respiratory Rate 20 05/24/17 11:56 Blood Pressure 131/65 05/24/17 11:56 O2 Sat by Pulse Oximetry (%) 97 05/24/17 09:00 Constitutional: Yes: No Distress, Calm Cardiovascular: Yes: S1, S2 Respiratory: Yes: Regular, Other Gastrointestinal: Yes: Normal Bowel Sounds, Soft Musculoskeletal: Yes: WNL Extremities: Yes: WNL Neurological: Yes: Alert, Oriented Psychiatric: Yes: Alert, Oriented Labs: CBC, BMP 05/24/17 06:49 05/24/17 06:49 INR, PTT INR 1.11 (0.82-1.09) 05/19/17 10:30 Assessment/Plan Problem List - Problems (1) Atrial fibrillation Code(s): I48.91 - UNSPECIFIED ATRIAL FIBRILLATION Qualifiers: Atrial fibrillation type: permanent Qualified Code(s): I48.2 - Chronic atrial fibrillation (2) Chronic diastolic CHF (congestive heart failure) Code(s): I50.32 - CHRONIC DIASTOLIC (CONGESTIVE) HEART FAILURE (3) Elevated troponin Code(s): R74.8 - ABNORMAL LEVELS OF OTHER SERUM ENZYMES (4) Hypertensive heart disease Code(s): I11.9 - HYPERTENSIVE HEART DISEASE WITHOUT HEART FAILURE Qualifiers: Heart failure type: diastolic Heart failure chronicity: chronic (5) Pneumonia Code(s): J18.9 - PNEUMONIA, UNSPECIFIED ORGANISM Qualifiers: Lung location: unspecified part of lung (6) Acute hypoxemic respiratory failure Code(s): J96.01 - ACUTE RESPIRATORY FAILURE WITH HYPOXIA plan continue current abx incentive kelly rest as per the teams continue current mgmt can stop zithro after 5 days but continue ceftriaxone
--- NOTE | 2017-05-25 00:53 | PN ---
Progress Note, Physician - Current Medication List Current Medications: Active Medications Acetaminophen (Tylenol -) 650 mg PO Q6H PRN PRN Reason: FEVER Last Admin: 05/19/17 21:43 Dose: 650 mg Aspirin (Asa -) 81 mg PO DAILY [facility] Last Admin: 05/24/17 09:54 Dose: 81 mg Furosemide (Lasix -) 40 mg PO DAILY [facility] Heparin Sodium (Porcine) (Heparin -) 5,000 unit SQ BID [facility] Last Admin: 05/24/17 21:38 Dose: 5,000 unit Azithromycin 250 mg/ Dextrose 250 mls @ 250 mls/hr IVPB DAILY [facility] Last Admin: 05/24/17 09:54 Dose: Not Given Ceftriaxone Sodium 1 gm/ (Dextrose) 50 mls @ 100 mls/hr IVPB DAILY [facility] Last Admin: 05/24/17 09:53 Dose: 100 mls/hr Losartan Potassium (Cozaar -) 50 mg PO DAILY [facility] Last Admin: 05/24/17 09:54 Dose: 50 mg Methylprednisolone Sodium Succinate (Solu-Medrol -) 40 mg IVPUSH BID [facility] Last Admin: 05/24/17 21:36 Dose: 40 mg Metoprolol Tartrate (Lopressor -) 50 mg PO BID [facility] Last Admin: 05/24/17 21:36 Dose: 50 mg Metoprolol Tartrate (Lopressor Injection -) 5 mg IVPUSH Q4H PRN PRN Reason: HYPERTENSION Last Admin: 05/22/17 09:31 Dose: 5 mg Rosuvastatin Calcium (Crestor -) 10 mg PO DAILY [facility] Last Admin: 05/24/17 09:54 Dose: 10 mg Tamsulosin HCl (Flomax -) 0.4 mg PO DAILY@0830 [facility] Last Admin: 05/24/17 09:53 Dose: 0.4 mg - Objective Vital Signs: Vital Signs Temperature 97.6 F 05/24/17 18:00 Pulse Rate 67 05/24/17 18:00 Respiratory Rate 19 05/24/17 18:00 Blood Pressure 142/75 05/24/17 18:00 O2 Sat by Pulse Oximetry (%) 95 05/24/17 21:00 Labs: CBC, BMP 05/24/17 06:49 05/24/17 06:49 INR, PTT INR 1.11 (0.82-1.09) 05/19/17 10:30 Problem List - Problems (1) Pneumonia Code(s): J18.9 - PNEUMONIA, UNSPECIFIED ORGANISM Qualifiers: Lung location: unspecified part of lung (2) Elevated troponin Code(s): R74.8 - ABNORMAL LEVELS OF OTHER SERUM ENZYMES (3) Acute on chronic diastolic heart failure Code(s): I50.33 - ACUTE ON CHRONIC DIASTOLIC (CONGESTIVE) HEART FAILURE (4) Atrial fibrillation Code(s): I48.91 - UNSPECIFIED ATRIAL FIBRILLATION Qualifiers: Atrial fibrillation type: permanent Qualified Code(s): I48.2 - Chronic atrial fibrillation (5) HTN (hypertension) Code(s): I10 - ESSENTIAL (PRIMARY) HYPERTENSION (6) BPH (benign prostatic hyperplasia) Code(s): N40.0 - BENIGN PROSTATIC HYPERPLASIA WITHOUT LOWER URINRY TRACT SYMP (7) Acute hypoxemic respiratory failure Code(s): J96.01 - ACUTE RESPIRATORY FAILURE WITH HYPOXIA
[2017-05-25] MEDS ORDERED: DEXTROSE 5%-WATER - 50 ML IVPB ONE (08:47)
[2017-05-25] MEDS ORDERED: cefTRIAXone SODIUM 1 GM VIAL ONE (08:47)
[2017-05-25] MEDS: METOPROLOL TARTRATE 50 MG TABLET (FP) PO SCH ×2 (09:21→21:09)
[2017-05-25] MEDS: ROSUVASTATIN CA 10 MG TABLET (FP) PO SCH (09:21)
[2017-05-25] MEDS: ASPIRIN 81 MG CHEWABLE TABLETS PO SCH (09:21)
[2017-05-25] MEDS: TAMSULOSIN HCL 0.4 MG CAP.ER.24H (FP) PO SCH (09:21)
[2017-05-25] MEDS: LOSARTAN POTASSIUM 50 MG TABLET (FP) PO SCH (09:21)
[2017-05-25] MEDS: FUROSEMIDE 40 MG TABLET (FP) PO SCH (09:21)
[2017-05-25] MEDS: CEFTRIAXONE 1 GM in DEXTROSE 5%-WATER - 50 ML IVPB SCH (09:22)
[2017-05-25] MEDS: methylPREDNISolone NA SUCC 40 MG/1 ML VIAL IVPUSH SCH ×2 (09:22→21:09)
[2017-05-25] MEDS: HEPARIN NA (PORCINE) 5,000 UNITS/ML 1ML VIAL SQ SCH ×2 (09:29→21:09)
[2017-05-25] MEDS: AZITHROMYCIN IVPB 250 MG in DEXTROSE 5%-WATER - 250 ML IVPB SCH (10:55)
--- NOTE | 2017-05-25 13:19 | PN ---
Progress Note, Physician Chief Complaint: Pt A&Ox3; OOB in chair; + productive cough; denies PND.Family at bedside History of Present Illness: Patient is a 77 white man with history of diastolic CHF, afib (on no anticoagulation; hx falls) here today complaining of shortness of breath. He describes a worsening cough over the past 2-3 days with worsening today. The cough is productive with red-tinged sputum. He reports chest pain associated with coughing. He reports fevers, chills. Denies history of COPD. Denies nausea , vomiting. Denies leg swelling, rash. PCP: Dianelys Admitting: Praveen Cards: Angelo - Current Medication List Current Medications: Active Medications Acetaminophen (Tylenol -) 650 mg PO Q6H PRN PRN Reason: FEVER Last Admin: 05/19/17 21:43 Dose: 650 mg Aspirin (Asa -) 81 mg PO DAILY [facility] Last Admin: 05/25/17 09:21 Dose: 81 mg Furosemide (Lasix -) 40 mg PO DAILY [facility] Last Admin: 05/25/17 09:21 Dose: 40 mg Heparin Sodium (Porcine) (Heparin -) 5,000 unit SQ BID [facility] Last Admin: 05/25/17 09:29 Dose: 5,000 unit Azithromycin 250 mg/ Dextrose 250 mls @ 250 mls/hr IVPB DAILY [facility] Last Admin: 05/25/17 10:55 Dose: 250 mls/hr Ceftriaxone Sodium 1 gm/ (Dextrose) 50 mls @ 100 mls/hr IVPB DAILY [facility] Last Admin: 05/25/17 09:22 Dose: 100 mls/hr Losartan Potassium (Cozaar -) 50 mg PO DAILY [facility] Last Admin: 05/25/17 09:21 Dose: 50 mg Methylprednisolone Sodium Succinate (Solu-Medrol -) 40 mg IVPUSH BID [facility] Last Admin: 05/25/17 09:22 Dose: 40 mg Metoprolol Tartrate (Lopressor -) 50 mg PO BID [facility] Last Admin: 05/25/17 09:21 Dose: 50 mg Metoprolol Tartrate (Lopressor Injection -) 5 mg IVPUSH Q4H PRN PRN Reason: HYPERTENSION Last Admin: 05/22/17 09:31 Dose: 5 mg Rosuvastatin Calcium (Crestor -) 10 mg PO DAILY [facility] Last Admin: 03/31/18 09:21 Dose: 10 mg Tamsulosin HCl (Flomax -) 0.4 mg PO DAILY@0830 [facility] Last Admin: 05/25/17 09:21 Dose: 0.4 mg - Objective Vital Signs: Vital Signs Temperature 98.1 F 05/25/17 06:00 Pulse Rate 62 05/25/17 06:00 Respiratory Rate 20 05/25/17 06:00 Blood Pressure 132/83 05/25/17 06:00 O2 Sat by Pulse Oximetry (%) 95 05/24/17 21:00 Constitutional: Yes: Anxious Eyes: Yes: WNL HENT: Yes: WNL Neck: Yes: WNL Cardiovascular: Yes: Pulse Irregular Respiratory: Yes: Diminished Gastrointestinal: Yes: Soft, Abdomen, Obese ...Rectal Exam: Yes: Deferred Genitourinary: No: Anuria Musculoskeletal: Yes: Muscle Weakness Extremities: Yes: Cool Edema: Yes Edema: LLE: 1+, RLE: 1+ Integumentary: Yes: WNL Neurological: Yes: WNL Psychiatric: Yes: WNL Labs: CBC, BMP 05/24/17 06:49 05/24/17 06:49 INR, PTT INR 1.11 (0.82-1.09) 05/19/17 10:30 Problem List - Problems (1) Acute hypoxemic respiratory failure Code(s): J96.01 - ACUTE RESPIRATORY FAILURE WITH HYPOXIA (2) Acute on chronic diastolic heart failure Code(s): I50.33 - ACUTE ON CHRONIC DIASTOLIC (CONGESTIVE) HEART FAILURE (3) Coronary artery disease Assessment/Plan: S/p PCI. F/u lipid profile and TSH. Code(s): I25.10 - ATHSCL HEART DISEASE OF [place] CORONARY ARTERY W/O ANG PCTRS Qualifiers: Coronary Disease-Associated Artery/Lesion type: [place] artery Associated angina: without angina (4) Elevated troponin Code(s): R74.8 - ABNORMAL LEVELS OF OTHER SERUM ENZYMES (5) HTN (hypertension) Code(s): I10 - ESSENTIAL (PRIMARY) HYPERTENSION (6) Pneumonia Code(s): J18.9 - PNEUMONIA, UNSPECIFIED ORGANISM Qualifiers: Lung location: unspecified part of lung (7) Stented coronary artery Code(s): Z95.5 - PRESENCE OF CORONARY ANGIOPLASTY IMPLANT AND GRAFT
[2017-05-25] MEDS ORDERED: ALBUTEROL SO4 0.042% IH SOL 1.25 MG/3 ML VIAL.NEB NEB PRN (13:50)
--- NOTE | 2017-05-25 14:39 | PN ---
Progress Note (short form) - Note Progress Note: PULMONARY Still some chest congestion. +nonproductive cough and wheezing. Last Vital Signs Temp Pulse Resp BP Pulse Ox 98.1 F 62 20 132/83 95 05/25/17 06:00 05/25/17 06:00 05/25/17 06:00 05/25/17 06:00 05/24/17 21:00 Gen: NAD at rest Heart: RRR Lung: scattered rhonchi Abd: soft, nontender Ext: no edema CBC, BMP 05/24/17 06:49 05/24/17 06:49 Active Medications Acetaminophen (Tylenol -) 650 mg PO Q6H PRN PRN Reason: FEVER Last Admin: 05/19/17 21:43 Dose: 650 mg Albuterol Sulfate (Ventolin 0.042trength) -) 1 amp NEB Q4H PRN PRN Reason: SHORT OF BREATH/WHEEZING Aspirin (Asa -) 81 mg PO DAILY [facility] Last Admin: 05/25/17 09:21 Dose: 81 mg Furosemide (Lasix -) 40 mg PO DAILY [facility] Last Admin: 05/25/17 09:21 Dose: 40 mg Heparin Sodium (Porcine) (Heparin -) 5,000 unit SQ BID [facility] Last Admin: 05/25/17 09:29 Dose: 5,000 unit Azithromycin 250 mg/ Dextrose 250 mls @ 250 mls/hr IVPB DAILY [facility] Last Admin: 05/25/17 10:55 Dose: 250 mls/hr Ceftriaxone Sodium 1 gm/ (Dextrose) 50 mls @ 100 mls/hr IVPB DAILY [facility] Last Admin: 05/25/17 09:22 Dose: 100 mls/hr Ipratropium [place] (Atrovent 0.02% Nebulizer -) 1 amp NEB RQID [facility] Losartan Potassium (Cozaar -) 50 mg PO DAILY [facility] Last Admin: 05/25/17 09:21 Dose: 50 mg Methylprednisolone Sodium Succinate (Solu-Medrol -) 40 mg IVPUSH BID [facility] Last Admin: 05/25/17 09:22 Dose: 40 mg Metoprolol Tartrate (Lopressor -) 50 mg PO BID [facility] Last Admin: 05/25/17 09:21 Dose: 50 mg Metoprolol Tartrate (Lopressor Injection -) 5 mg IVPUSH Q4H PRN PRN Reason: HYPERTENSION Last Admin: 05/22/17 09:31 Dose: 5 mg Rosuvastatin Calcium (Crestor -) 10 mg PO DAILY [facility] Last Admin: 05/25/17 09:21 Dose: 10 mg Tamsulosin HCl (Flomax -) 0.4 mg PO DAILY@0830 [facility] Last Admin: 05/25/17 09:21 Dose: 0.4 mg A/P Pneumonia +Troponins likely Demand Ischemia Atrial Fibrillation LV Diastolic Dysfunction - continue antibiotics - rate control - medrol taper - will add standing atrovent, PRN albuterol - O2 to keep SpO2 >90% - DVT prophylaxis
[2017-05-25] MEDS: IPRATROPIUM BR 0.02% 0.5 MG/2.5 ML VIAL.NEB. NEB SCH ×2 (16:37→20:50)
--- NOTE | 2017-05-25 19:09 | PN ---
Progress Note, Physician History of Present Illness: Pt seen and examined. States he feels better. Still with cough but less short of breath. Afebrile. No other specific complaints. - Current Medication List Current Medications: Active Medications Acetaminophen (Tylenol -) 650 mg PO Q6H PRN PRN Reason: FEVER Last Admin: 05/19/17 21:43 Dose: 650 mg Albuterol Sulfate (Ventolin 0.042trength) -) 1 amp NEB Q4H PRN PRN Reason: SHORT OF BREATH/WHEEZING Aspirin (Asa -) 81 mg PO DAILY [facility] Last Admin: 05/25/17 09:21 Dose: 81 mg Furosemide (Lasix -) 40 mg PO DAILY [facility] Last Admin: 05/25/17 09:21 Dose: 40 mg Heparin Sodium (Porcine) (Heparin -) 5,000 unit SQ BID [facility] Last Admin: 05/25/17 09:29 Dose: 5,000 unit Ceftriaxone Sodium 1 gm/ (Dextrose) 50 mls @ 100 mls/hr IVPB DAILY [facility] Last Admin: 05/25/17 09:22 Dose: 100 mls/hr Ipratropium [place] (Atrovent 0.02% Nebulizer -) 1 amp NEB RQID [facility] Last Admin: 05/25/17 16:37 Dose: 1 amp Losartan Potassium (Cozaar -) 50 mg PO DAILY [facility] Last Admin: 05/25/17 09:21 Dose: 50 mg Methylprednisolone Sodium Succinate (Solu-Medrol -) 40 mg IVPUSH BID [facility] Last Admin: 05/25/17 09:22 Dose: 40 mg Metoprolol Tartrate (Lopressor -) 50 mg PO BID [facility] Last Admin: 05/25/17 09:21 Dose: 50 mg Metoprolol Tartrate (Lopressor Injection -) 5 mg IVPUSH Q4H PRN PRN Reason: HYPERTENSION Last Admin: 05/22/17 09:31 Dose: 5 mg Rosuvastatin Calcium (Crestor -) 10 mg PO DAILY [facility] Last Admin: 05/25/17 09:21 Dose: 10 mg Tamsulosin HCl (Flomax -) 0.4 mg PO DAILY@0830 [facility] Last Admin: 05/25/17 09:21 Dose: 0.4 mg - Objective Vital Signs: Vital Signs Temperature 98.0 F 05/25/17 17:00 Pulse Rate 76 05/25/17 17:00 Respiratory Rate 18 05/25/17 17:00 Blood Pressure 137/94 05/25/17 17:00 O2 Sat by Pulse Oximetry (%) 95 05/25/17 10:00 Constitutional: Yes: No Distress, Calm Cardiovascular: Yes: Regular Rate and Rhythm Respiratory: Yes: Wheezes Gastrointestinal: Yes: Normal Bowel Sounds, Soft Genitourinary: Yes: WNL Extremities: Yes: WNL Neurological: Yes: Alert Labs: CBC, BMP 05/24/17 06:49 05/24/17 06:49 INR, PTT INR 1.11 (0.82-1.09) 05/19/17 10:30 - ....Imaging Chest X-ray: Report Reviewed Assessment/Plan PNA CHF Acute Hypoxemic respiratory failure AFIB -- pt feeling better -- may d/c Azithromycin, continue Ceftriaxone -- continue monitor, currently stable
--- NOTE | 2017-05-25 20:07 | PN ---
Progress Note, Physician - Current Medication List Current Medications: Active Medications Acetaminophen (Tylenol -) 650 mg PO Q6H PRN PRN Reason: FEVER Last Admin: 05/19/17 21:43 Dose: 650 mg Albuterol Sulfate (Ventolin 0.042trength) -) 1 amp NEB Q4H PRN PRN Reason: SHORT OF BREATH/WHEEZING Aspirin (Asa -) 81 mg PO DAILY [facility] Last Admin: 05/25/17 09:21 Dose: 81 mg Furosemide (Lasix -) 40 mg PO DAILY [facility] Last Admin: 05/25/17 09:21 Dose: 40 mg Heparin Sodium (Porcine) (Heparin -) 5,000 unit SQ BID [facility] Last Admin: 05/25/17 09:29 Dose: 5,000 unit Ceftriaxone Sodium 1 gm/ (Dextrose) 50 mls @ 100 mls/hr IVPB DAILY [facility] Last Admin: 05/25/17 09:22 Dose: 100 mls/hr Ipratropium [place] (Atrovent 0.02% Nebulizer -) 1 amp NEB RQID [facility] Last Admin: 05/25/17 16:37 Dose: 1 amp Losartan Potassium (Cozaar -) 50 mg PO DAILY [facility] Last Admin: 05/25/17 09:21 Dose: 50 mg Methylprednisolone Sodium Succinate (Solu-Medrol -) 40 mg IVPUSH BID [facility] Last Admin: 05/25/17 09:22 Dose: 40 mg Metoprolol Tartrate (Lopressor -) 50 mg PO BID [facility] Last Admin: 05/25/17 09:21 Dose: 50 mg Metoprolol Tartrate (Lopressor Injection -) 5 mg IVPUSH Q4H PRN PRN Reason: HYPERTENSION Last Admin: 05/22/17 09:31 Dose: 5 mg Rosuvastatin Calcium (Crestor -) 10 mg PO DAILY [facility] Last Admin: 05/25/17 09:21 Dose: 10 mg Tamsulosin HCl (Flomax -) 0.4 mg PO DAILY@0830 [facility] Last Admin: 05/25/17 09:21 Dose: 0.4 mg - Objective Vital Signs: Vital Signs Temperature 98.0 F 05/25/17 17:00 Pulse Rate 76 05/25/17 17:00 Respiratory Rate 18 05/25/17 17:00 Blood Pressure 137/94 05/25/17 17:00 O2 Sat by Pulse Oximetry (%) 95 05/25/17 10:00 Labs: CBC, BMP 05/24/17 06:49 05/24/17 06:49 INR, PTT INR 1.11 (0.82-1.09) 05/19/17 10:30 Problem List - Problems (1) Pneumonia Code(s): J18.9 - PNEUMONIA, UNSPECIFIED ORGANISM Qualifiers: Lung location: unspecified part of lung (2) Elevated troponin Code(s): R74.8 - ABNORMAL LEVELS OF OTHER SERUM ENZYMES (3) Acute on chronic diastolic heart failure Code(s): I50.33 - ACUTE ON CHRONIC DIASTOLIC (CONGESTIVE) HEART FAILURE (4) Atrial fibrillation Code(s): I48.91 - UNSPECIFIED ATRIAL FIBRILLATION Qualifiers: Atrial fibrillation type: permanent Qualified Code(s): I48.2 - Chronic atrial fibrillation (5) HTN (hypertension) Code(s): I10 - ESSENTIAL (PRIMARY) HYPERTENSION (6) BPH (benign prostatic hyperplasia) Code(s): N40.0 - BENIGN PROSTATIC HYPERPLASIA WITHOUT LOWER URINRY TRACT SYMP (7) Acute hypoxemic respiratory failure Code(s): J96.01 - ACUTE RESPIRATORY FAILURE WITH HYPOXIA
[2017-05-25 20:42] LABS: CHOLESTEROL 173 mg/dL (50-200); HDL CHOLESTEROL 61 mg/dL (40-60); LDL CHOLESTEROL (ONLY SJRH) 97 mg/dL (5-100); TRIGLYCERIDES 138 mg/dL (35-160)
[2017-05-26] MEDS: IPRATROPIUM BR 0.02% 0.5 MG/2.5 ML VIAL.NEB. NEB SCH ×4 (07:28→20:36)
[2017-05-26] MEDS ORDERED: DEXTROSE 5%-WATER - 50 ML IVPB ONE (09:03)
[2017-05-26] MEDS ORDERED: cefTRIAXone SODIUM 1 GM VIAL ONE (09:03)
[2017-05-26] MEDS: TAMSULOSIN HCL 0.4 MG CAP.ER.24H (FP) PO SCH (09:14)
[2017-05-26] MEDS: FUROSEMIDE 40 MG TABLET (FP) PO SCH (09:14)
[2017-05-26] MEDS: METOPROLOL TARTRATE 50 MG TABLET (FP) PO SCH ×2 (09:14→21:20)
[2017-05-26] MEDS: ROSUVASTATIN CA 10 MG TABLET (FP) PO SCH (09:14)
[2017-05-26] MEDS: HEPARIN NA (PORCINE) 5,000 UNITS/ML 1ML VIAL SQ SCH ×2 (09:14→21:20)
[2017-05-26] MEDS: LOSARTAN POTASSIUM 50 MG TABLET (FP) PO SCH (09:14)
[2017-05-26] MEDS: ASPIRIN 81 MG CHEWABLE TABLETS PO SCH (09:14)
[2017-05-26] MEDS: CEFTRIAXONE 1 GM in DEXTROSE 5%-WATER - 50 ML IVPB SCH (09:15)
[2017-05-26] MEDS: methylPREDNISolone NA SUCC 40 MG/1 ML VIAL IVPUSH SCH ×2 (09:15→21:21)
--- NOTE | 2017-05-26 12:08 | PN ---
Progress Note (short form) - Note Progress Note: PULMONARY Still feels some chest congestion. +nonproductive cough and wheezing. Receiving standing and PRN nebs. Last Vital Signs Temp Pulse Resp BP Pulse Ox 98.5 F 74 18 139/67 95 05/26/17 08:00 05/26/17 08:00 05/26/17 08:00 05/26/17 08:00 05/26/17 09:00 Gen: NAD at rest Heart: RRR Lung: scattered rhonchi Abd: soft, nontender Ext: no edema CBC, BMP 05/24/17 06:49 05/24/17 06:49 Active Medications Acetaminophen (Tylenol -) 650 mg PO Q6H PRN PRN Reason: FEVER Last Admin: 05/19/17 21:43 Dose: 650 mg Albuterol Sulfate (Ventolin 0.042trength) -) 1 amp NEB Q4H PRN PRN Reason: SHORT OF BREATH/WHEEZING Aspirin (Asa -) 81 mg PO DAILY [facility] Last Admin: 05/26/17 09:14 Dose: 81 mg Furosemide (Lasix -) 40 mg PO DAILY [facility] Last Admin: 05/26/17 09:14 Dose: 40 mg Heparin Sodium (Porcine) (Heparin -) 5,000 unit SQ BID [facility] Last Admin: 05/26/17 09:14 Dose: 5,000 unit Ceftriaxone Sodium 1 gm/ (Dextrose) 50 mls @ 100 mls/hr IVPB DAILY [facility] Last Admin: 05/26/17 09:15 Dose: 100 mls/hr Ipratropium [place] (Atrovent 0.02% Nebulizer -) 1 amp NEB RQID [facility] Last Admin: 05/26/17 11:27 Dose: 1 amp Losartan Potassium (Cozaar -) 50 mg PO DAILY [facility] Last Admin: 05/26/17 09:14 Dose: 50 mg Methylprednisolone Sodium Succinate (Solu-Medrol -) 40 mg IVPUSH BID [facility] Last Admin: 05/26/17 09:15 Dose: 40 mg Metoprolol Tartrate (Lopressor -) 50 mg PO BID [facility] Last Admin: 05/26/17 09:14 Dose: 50 mg Metoprolol Tartrate (Lopressor Injection -) 5 mg IVPUSH Q4H PRN PRN Reason: HYPERTENSION Last Admin: 05/22/17 09:31 Dose: 5 mg Rosuvastatin Calcium (Crestor -) 10 mg PO DAILY [facility] Last Admin: 05/26/17 09:14 Dose: 10 mg Tamsulosin HCl (Flomax -) 0.4 mg PO DAILY@0830 [facility] Last Admin: 05/26/17 09:14 Dose: 0.4 mg A/P Pneumonia +Troponins likely Demand Ischemia Atrial Fibrillation LV Diastolic Dysfunction - continue antibiotics - rate control - medrol taper - standing and PRN nebs - O2 to keep SpO2 >90% - DVT prophylaxis
[2017-05-26] MEDS ORDERED: ALBUTEROL SO4 0.042% IH SOL 1.25 MG/3 ML VIAL.NEB NEB PRN (12:09)
--- NOTE | 2017-05-26 12:54 | PN ---
Progress Note, Physician History of Present Illness: Patient is a 77 white man with history of diastolic CHF, afib (on no anticoagulation; hx falls) here today complaining of shortness of breath. He describes a worsening cough over the past 2-3 days with worsening today. The cough is productive with red-tinged sputum. He reports chest pain associated with coughing. He reports fevers, chills. Denies history of COPD. Denies nausea , vomiting. Denies leg swelling, rash. PCP: Dianelys Admitting: Praveen Cards: Angelo - Current Medication List Current Medications: Active Medications Acetaminophen (Tylenol -) 650 mg PO Q6H PRN PRN Reason: FEVER Last Admin: 05/19/17 21:43 Dose: 650 mg Albuterol Sulfate (Ventolin 0.083% Nebulizer Soln -) 0.5 amp NEB RQID [facility] Albuterol Sulfate (Ventolin 0.083% Nebulizer Soln -) 0.5 amp NEB Q4H PRN PRN Reason: SHORT OF BREATH/WHEEZING Aspirin (Asa -) 81 mg PO DAILY [facility] Last Admin: 05/26/17 09:14 Dose: 81 mg Furosemide (Lasix -) 40 mg PO DAILY [facility] Last Admin: 05/26/17 09:14 Dose: 40 mg Heparin Sodium (Porcine) (Heparin -) 5,000 unit SQ BID [facility] Last Admin: 05/26/17 09:14 Dose: 5,000 unit Ceftriaxone Sodium 1 gm/ (Dextrose) 50 mls @ 100 mls/hr IVPB DAILY [facility] Last Admin: 05/26/17 09:15 Dose: 100 mls/hr Ipratropium [place] (Atrovent 0.02% Nebulizer -) 1 amp NEB RQID [facility] Last Admin: 05/26/17 11:27 Dose: 1 amp Losartan Potassium (Cozaar -) 50 mg PO DAILY [facility] Last Admin: 05/26/17 09:14 Dose: 50 mg Methylprednisolone Sodium Succinate (Solu-Medrol -) 40 mg IVPUSH BID [facility] Last Admin: 05/26/17 09:15 Dose: 40 mg Metoprolol Tartrate (Lopressor -) 50 mg PO BID [facility] Last Admin: 05/26/17 09:14 Dose: 50 mg Metoprolol Tartrate (Lopressor Injection -) 5 mg IVPUSH Q4H PRN PRN Reason: HYPERTENSION Last Admin: 05/22/17 09:31 Dose: 5 mg Rosuvastatin Calcium (Crestor -) 10 mg PO DAILY [facility] Last Admin: 05/26/17 09:14 Dose: 10 mg Tamsulosin HCl (Flomax -) 0.4 mg PO DAILY@0830 [facility] Last Admin: 05/26/17 09:14 Dose: 0.4 mg - Objective Vital Signs: Vital Signs Temperature 98.5 F 05/26/17 08:00 Pulse Rate 74 05/26/17 08:00 Respiratory Rate 18 05/26/17 08:00 Blood Pressure 139/67 05/26/17 08:00 O2 Sat by Pulse Oximetry (%) 95 05/26/17 09:00 Labs: CBC, BMP 05/24/17 06:49 05/24/17 06:49 INR, PTT INR 1.11 (0.82-1.09) 05/19/17 10:30 Problem List - Problems (1) Acute hypoxemic respiratory failure Code(s): J96.01 - ACUTE RESPIRATORY FAILURE WITH HYPOXIA (2) Acute on chronic diastolic heart failure Code(s): I50.33 - ACUTE ON CHRONIC DIASTOLIC (CONGESTIVE) HEART FAILURE (3) Coronary artery disease Code(s): I25.10 - ATHSCL HEART DISEASE OF [place] CORONARY ARTERY W/O ANG PCTRS Qualifiers: Coronary Disease-Associated Artery/Lesion type: [place] artery Associated angina: without angina (4) Elevated troponin Code(s): R74.8 - ABNORMAL LEVELS OF OTHER SERUM ENZYMES (5) HTN (hypertension) Code(s): I10 - ESSENTIAL (PRIMARY) HYPERTENSION (6) Pneumonia Code(s): J18.9 - PNEUMONIA, UNSPECIFIED ORGANISM Qualifiers: Lung location: unspecified part of lung (7) Stented coronary artery Code(s): Z95.5 - PRESENCE OF CORONARY ANGIOPLASTY IMPLANT AND GRAFT
[2017-05-26] MEDS: POLYETHYLENE GLYCOL 3350 119 GM BTL PO SCH (13:30)
--- NOTE | 2017-05-26 14:31 | PN ---
Progress Note, Physician History of Present Illness: Pt states he is gradually feeling better. No productive cough, no hemoptysis. Remains afebrile. No new complaints. On O2 NC. - Current Medication List Current Medications: Active Medications Acetaminophen (Tylenol -) 650 mg PO Q6H PRN PRN Reason: FEVER Last Admin: 05/19/17 21:43 Dose: 650 mg Albuterol Sulfate (Ventolin 0.083% Nebulizer Soln -) 0.5 amp NEB RQID [facility] Albuterol Sulfate (Ventolin 0.083% Nebulizer Soln -) 0.5 amp NEB Q4H PRN PRN Reason: SHORT OF BREATH/WHEEZING Aspirin (Asa -) 81 mg PO DAILY [facility] Last Admin: 05/26/17 09:14 Dose: 81 mg Furosemide (Lasix -) 40 mg PO DAILY [facility] Last Admin: 05/26/17 09:14 Dose: 40 mg Heparin Sodium (Porcine) (Heparin -) 5,000 unit SQ BID [facility] Last Admin: 05/26/17 09:14 Dose: 5,000 unit Ceftriaxone Sodium 1 gm/ (Dextrose) 50 mls @ 100 mls/hr IVPB DAILY [facility] Last Admin: 05/26/17 09:15 Dose: 100 mls/hr Ipratropium [place] (Atrovent 0.02% Nebulizer -) 1 amp NEB RQID [facility] Last Admin: 05/26/17 11:27 Dose: 1 amp Losartan Potassium (Cozaar -) 50 mg PO DAILY [facility] Last Admin: 05/26/17 09:14 Dose: 50 mg Methylprednisolone Sodium Succinate (Solu-Medrol -) 40 mg IVPUSH BID [facility] Last Admin: 05/26/17 09:15 Dose: 40 mg Metoprolol Tartrate (Lopressor -) 50 mg PO BID [facility] Last Admin: 05/26/17 09:14 Dose: 50 mg Metoprolol Tartrate (Lopressor Injection -) 5 mg IVPUSH Q4H PRN PRN Reason: HYPERTENSION Last Admin: 05/22/17 09:31 Dose: 5 mg Polyethylene Glycol (Miralax (For Daily Use) -) 17 gm PO DAILY [facility] Last Admin: 05/26/17 13:30 Dose: 17 gm Rosuvastatin Calcium (Crestor -) 10 mg PO DAILY [facility] Last Admin: 05/26/17 09:14 Dose: 10 mg Tamsulosin HCl (Flomax -) 0.4 mg PO DAILY@0830 [facility] Last Admin: 05/26/17 09:14 Dose: 0.4 mg - Objective Vital Signs: Vital Signs Temperature 98.5 F 05/26/17 08:00 Pulse Rate 74 05/26/17 08:00 Respiratory Rate 18 05/26/17 08:00 Blood Pressure 139/67 05/26/17 08:00 O2 Sat by Pulse Oximetry (%) 95 05/26/17 09:00 Constitutional: Yes: No Distress, Calm Cardiovascular: Yes: Pulse Irregular Respiratory: Yes: Diminished (RUL) Gastrointestinal: Yes: Normal Bowel Sounds, Soft Neurological: Yes: Alert, Oriented Labs: CBC, BMP 05/24/17 06:49 05/24/17 06:49 INR, PTT INR 1.11 (0.82-1.09) 05/19/17 10:30 Problem List - Problems (1) Acute hypoxemic respiratory failure Code(s): J96.01 - ACUTE RESPIRATORY FAILURE WITH HYPOXIA (2) Acute on chronic diastolic heart failure Code(s): I50.33 - ACUTE ON CHRONIC DIASTOLIC (CONGESTIVE) HEART FAILURE (3) Atrial fibrillation Code(s): I48.91 - UNSPECIFIED ATRIAL FIBRILLATION Qualifiers: Atrial fibrillation type: permanent Qualified Code(s): I48.2 - Chronic atrial fibrillation (4) Coronary artery disease Code(s): I25.10 - ATHSCL HEART DISEASE OF [place] CORONARY ARTERY W/O ANG PCTRS Qualifiers: Coronary Disease-Associated Artery/Lesion type: [place] artery Associated angina: without angina (5) HTN (hypertension) Code(s): I10 - ESSENTIAL (PRIMARY) HYPERTENSION (6) Pneumonia Code(s): J18.9 - PNEUMONIA, UNSPECIFIED ORGANISM Qualifiers: Lung location: unspecified part of lung (7) Stented coronary artery Code(s): Z95.5 - PRESENCE OF CORONARY ANGIOPLASTY IMPLANT AND GRAFT Assessment/Plan PNA CHF Acute Hypoxemic respiratory failure AFIB -- pt states he is feeling better -- continue antibiotics -- monitor cbc currently stable
[2017-05-26] MEDS ORDERED: ALBUTEROL SO4 0.042% IH SOL 1.25 MG/3 ML VIAL.NEB NEB SCH (16:00)
[2017-05-26] MEDS: ALBUTEROL SO4 0.083% IH SOL 2.5 MG/3 ML VIAL.NEB. NEB SCH ×2 (16:05→20:36)
--- NOTE | 2017-05-26 23:49 | PN ---
Progress Note, Physician History of Present Illness: No new complaints - Current Medication List Current Medications: Active Medications Acetaminophen (Tylenol -) 650 mg PO Q6H PRN PRN Reason: FEVER Last Admin: 05/19/17 21:43 Dose: 650 mg Albuterol Sulfate (Ventolin 0.083% Nebulizer Soln -) 0.5 amp NEB RQID [facility] Last Admin: 05/26/17 20:36 Dose: 0.5 amp Albuterol Sulfate (Ventolin 0.083% Nebulizer Soln -) 0.5 amp NEB Q4H PRN PRN Reason: SHORT OF BREATH/WHEEZING Aspirin (Asa -) 81 mg PO DAILY [facility] Last Admin: 05/26/17 09:14 Dose: 81 mg Furosemide (Lasix -) 40 mg PO DAILY [facility] Last Admin: 05/26/17 09:14 Dose: 40 mg Heparin Sodium (Porcine) (Heparin -) 5,000 unit SQ BID [facility] Last Admin: 05/26/17 21:20 Dose: 5,000 unit Ceftriaxone Sodium 1 gm/ (Dextrose) 50 mls @ 100 mls/hr IVPB DAILY [facility] Last Admin: 05/26/17 09:15 Dose: 100 mls/hr Ceftriaxone Sodium 1 gm/ (Dextrose) 50 mls @ 100 mls/hr IVPB DAILY [facility] Ipratropium [place] (Atrovent 0.02% Nebulizer -) 1 amp NEB RQID [facility] Last Admin: 05/26/17 20:36 Dose: 1 amp Losartan Potassium (Cozaar -) 50 mg PO DAILY [facility] Last Admin: 05/26/17 09:14 Dose: 50 mg Methylprednisolone Sodium Succinate (Solu-Medrol -) 40 mg IVPUSH BID [facility] Last Admin: 05/26/17 21:21 Dose: 40 mg Metoprolol Tartrate (Lopressor -) 50 mg PO BID [facility] Last Admin: 05/26/17 21:20 Dose: 50 mg Metoprolol Tartrate (Lopressor Injection -) 5 mg IVPUSH Q4H PRN PRN Reason: HYPERTENSION Last Admin: 05/22/17 09:31 Dose: 5 mg Polyethylene Glycol (Miralax (For Daily Use) -) 17 gm PO DAILY [facility] Last Admin: 05/26/17 13:30 Dose: 17 gm Rosuvastatin Calcium (Crestor -) 10 mg PO DAILY [facility] Last Admin: 05/26/17 09:14 Dose: 10 mg Tamsulosin HCl (Flomax -) 0.4 mg PO DAILY@0830 [facility] Last Admin: 05/26/17 09:14 Dose: 0.4 mg - Objective Vital Signs: Vital Signs Temperature 98.5 F 05/26/17 20:15 Pulse Rate 94 H 05/26/17 20:15 Respiratory Rate 20 05/26/17 21:00 Blood Pressure 119/79 05/26/17 20:15 O2 Sat by Pulse Oximetry (%) 94 L 05/26/17 21:00 Neck: Yes: WNL, Supple Cardiovascular: Yes: WNL, Regular Rate and Rhythm Respiratory: Yes: Diminished Gastrointestinal: Yes: WNL, Normal Bowel Sounds, Soft Labs: CBC, BMP 05/24/17 06:49 05/24/17 06:49 INR, PTT INR 1.11 (0.82-1.09) 05/19/17 10:30 Problem List - Problems (1) Pneumonia Assessment/Plan: Cont IV ceftriaxone/zithro Cont nebulizers Cont IV steroids as improves Follow up ct scan 4-6 weeks as outpt to evaluate abnormalities Code(s): J18.9 - PNEUMONIA, UNSPECIFIED ORGANISM Qualifiers: Lung location: unspecified part of lung (2) Elevated troponin Assessment/Plan: Due to demand ischemia from rapid afib/pneumonia Code(s): R74.8 - ABNORMAL LEVELS OF OTHER SERUM ENZYMES (3) Acute on chronic diastolic heart failure Assessment/Plan: Cont PO lasix Monitor electrolytes Code(s): I50.33 - ACUTE ON CHRONIC DIASTOLIC (CONGESTIVE) HEART FAILURE (4) Atrial fibrillation Assessment/Plan: Heart rate controlled Cont B.B. Pt not on AC due to h/o ICH Code(s): I48.91 - UNSPECIFIED ATRIAL FIBRILLATION Qualifiers: Atrial fibrillation type: permanent Qualified Code(s): I48.2 - Chronic atrial fibrillation (5) HTN (hypertension) Code(s): I10 - ESSENTIAL (PRIMARY) HYPERTENSION (6) BPH (benign prostatic hyperplasia) Code(s): N40.0 - BENIGN PROSTATIC HYPERPLASIA WITHOUT LOWER URINRY TRACT SYMP (7) Acute hypoxemic respiratory failure Code(s): J96.01 - ACUTE RESPIRATORY FAILURE WITH HYPOXIA
[2017-05-27 07:20] LABS: HEMATOCRIT 39.5 % (35.4-49); HEMOGLOBIN 13.3 GM/dL (11.7-16.9); MCH 31.9 pg (25.7-33.7); MCHC 33.7 g/dl (32.0-35.9); MEAN CELL VOLUME 94.8 fl (80-96); MEAN PLT VOLUME 7.6 fl (7.5-11.1); PLATELET COUNT 283 K/MM3 (134-434); RBC 4.16 M/mm3 (4.00-5.60); WHITE BLOOD COUNT 11.8 K/mm3 (4.0-10.0)
[2017-05-27] MEDS: IPRATROPIUM BR 0.02% 0.5 MG/2.5 ML VIAL.NEB. NEB SCH ×3 (07:35→17:10)
[2017-05-27] MEDS: ALBUTEROL SO4 0.083% IH SOL 2.5 MG/3 ML VIAL.NEB. NEB SCH (07:35)
[2017-05-27 08:00] LABS: CHLORIDE 102 mmol/L (98-107); POTASSIUM 4.6 mmol/L (3.5-5.1); SODIUM 139 mmol/L (136-145)
[2017-05-27 08:17] LABS: ALBUMIN 2.8 g/dl (3.4-5.0); ALK PHOS 53 U/L (45-117); ANION GAP 4 (8-16); BILIRUBIN,TOTAL 0.5 mg/dL (0.2-1.0); BLOOD UREA NITROGEN 28 mg/dL (7-18); CALCIUM 8.4 mg/dL (8.5-10.1); CO2 33 mmol/L (21-32); CREATININE 0.9 mg/dL (0.7-1.3); GLUCOSE,RANDOM 108 mg/dL (74-106); SGOT/AST 23 U/L (15-37); SGPT/ALT 62 U/L (12-78); TOT PROT 5.4 g/dl (6.4-8.2)
[2017-05-27] MEDS: TAMSULOSIN HCL 0.4 MG CAP.ER.24H (FP) PO SCH (08:43)
[2017-05-27] MEDS ORDERED: cefTRIAXone SODIUM 1 GM VIAL ONE (09:58)
[2017-05-27] MEDS ORDERED: DEXTROSE 5%-WATER - 50 ML IVPB ONE (09:58)
[2017-05-27] MEDS ORDERED: CEFTRIAXONE 1 GM in DEXTROSE 5%-WATER - 50 ML IVPB SCH (10:00)
[2017-05-27] MEDS: methylPREDNISolone NA SUCC 40 MG/1 ML VIAL IVPUSH SCH (10:09)
[2017-05-27] MEDS: ASPIRIN 81 MG CHEWABLE TABLETS PO SCH (10:10)
[2017-05-27] MEDS: HEPARIN NA (PORCINE) 5,000 UNITS/ML 1ML VIAL SQ SCH ×2 (10:10→21:38)
[2017-05-27] MEDS: METOPROLOL TARTRATE 50 MG TABLET (FP) PO SCH ×2 (10:10→21:37)
[2017-05-27] MEDS: LOSARTAN POTASSIUM 50 MG TABLET (FP) PO SCH (10:10)
[2017-05-27] MEDS: FUROSEMIDE 40 MG TABLET (FP) PO SCH (10:10)
[2017-05-27] MEDS: POLYETHYLENE GLYCOL 3350 119 GM BTL PO SCH (10:12)
[2017-05-27] MEDS: ROSUVASTATIN CA 10 MG TABLET (FP) PO SCH (10:14)
[2017-05-27 11:15] LABS: ACANTHOCYTES 0; ANISOCYTOSIS 0; HELMET CELLS 0; HOWELL-JOLLY BODIES 0; MACROCYTOSIS 0; OVALOCYTE 0; PLATELET ESTIMATE NORMAL; ROULEAU 0; SICKELED CELLS 0; TARGET CELLS 0; TEAR DROP CELLS 0; TOXIC GRANULATION 0
[2017-05-27] MEDS: ALBUTEROL SO4 0.083% IH SOL 2.5 MG/3 ML VIAL.NEB. NEB PRN (11:20)
--- NOTE | 2017-05-27 11:23 | PN ---
Progress Note (short form) - Note Progress Note: PULMONARY Less congested today. Breathing better. Wants to go home. Last Vital Signs Temp Pulse Resp BP Pulse Ox 97.6 F 100 H 18 145/82 94 L 05/27/17 05:27 05/27/17 05:27 05/27/17 05:27 05/27/17 05:27 05/26/17 21:00 Gen: NAD at rest Heart: RRR Lung: scattered rhonchi Abd: soft, nontender Ext: no edema CBC, BMP 05/27/17 06:50 05/27/17 06:50 Active Medications Acetaminophen (Tylenol -) 650 mg PO Q6H PRN PRN Reason: FEVER Last Admin: 05/19/17 21:43 Dose: 650 mg Albuterol Sulfate (Ventolin 0.083% Nebulizer Soln -) 0.5 amp NEB RQID [facility] Last Admin: 05/27/17 07:35 Dose: 0.5 amp Albuterol Sulfate (Ventolin 0.083% Nebulizer Soln -) 0.5 amp NEB Q4H PRN PRN Reason: SHORT OF BREATH/WHEEZING Aspirin (Asa -) 81 mg PO DAILY [facility] Last Admin: 05/27/17 10:10 Dose: 81 mg Furosemide (Lasix -) 40 mg PO DAILY [facility] Last Admin: 05/27/17 10:10 Dose: 40 mg Heparin Sodium (Porcine) (Heparin -) 5,000 unit SQ BID [facility] Last Admin: 05/27/17 10:10 Dose: 5,000 unit Ceftriaxone Sodium 1 gm/ (Dextrose) 50 mls @ 100 mls/hr IVPB DAILY [facility] Last Admin: 05/27/17 10:09 Dose: 100 mls/hr Ipratropium [place] (Atrovent 0.02% Nebulizer -) 1 amp NEB RQID [facility] Last Admin: 05/27/17 07:35 Dose: 1 amp Losartan Potassium (Cozaar -) 50 mg PO DAILY [facility] Last Admin: 05/27/17 10:10 Dose: 50 mg Methylprednisolone Sodium Succinate (Solu-Medrol -) 40 mg IVPUSH BID [facility] Last Admin: 05/27/17 10:09 Dose: 40 mg Metoprolol Tartrate (Lopressor -) 50 mg PO BID [facility] Last Admin: 05/27/17 10:10 Dose: 50 mg Metoprolol Tartrate (Lopressor Injection -) 5 mg IVPUSH Q4H PRN PRN Reason: HYPERTENSION Last Admin: 05/22/17 09:31 Dose: 5 mg Polyethylene Glycol (Miralax (For Daily Use) -) 17 gm PO DAILY [facility] Last Admin: 05/27/17 10:12 Dose: Not Given Rosuvastatin Calcium (Crestor -) 10 mg PO DAILY [facility] Last Admin: 05/27/17 10:14 Dose: 10 mg Tamsulosin HCl (Flomax -) 0.4 mg PO DAILY@0830 [facility] Last Admin: 05/27/17 08:43 Dose: 0.4 mg A/P Pneumonia +Troponins likely Demand Ischemia Atrial Fibrillation LV Diastolic Dysfunction - continue antibiotics - rate control - can change to PO prednisone 40mg daily and taper as outpt - standing atrovent and albuterol PRN nebs - O2 to keep SpO2 >90% - will check ambulatory SpO2 on room air to assess for home O2 - DVT prophylaxis
--- NOTE | 2017-05-27 13:30 | PN ---
Physical Exam: SUBJECTIVE: Patient seen and examined at the bedside. Feels well, denies shortness of breath. Wants to go back to his residence. 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 Morton Period Temp Pulse Resp BP Sys/Hagen Pulse Ox Last 24 Hr 97.6 F-98.5 F 94-110 18-20 119-145/79-85 94-94 GENERAL: The patient is awake, alert, and fully oriented, in no acute distress. HEAD: Normal with no signs of trauma. EYES: PERRL, extraocular movements intact, sclera anicteric, conjunctiva clear. No ptosis. ENT: Ears normal, nares patent, oropharynx clear without exudates, moist mucous membranes. LUNGS: Lungs sounds clear, right LLL with diminished breath sounds HEART: Regular rate and rhythm ABDOMEN: Soft, nontender, nondistended, normoactive bowel sounds, no guarding, no rebound, no hepatosplenomegaly, no masses. EXTREMITIES: no edema. NEUROLOGICAL: Normal speech, gait not observed. PSYCH: Normal mood, normal affect. SKIN: Warm, dry, normal turgor, no rashes or lesions noted Laboratory Results - last 24 hr 05/27/17 05/27/17 06:50 06:50 WBC 11.8 H RBC 4.16 Hgb 13.3 Hct 39.5 MCV 94.8 MCH 31.9 MCHC 33.7 RDW 14.0 Plt Count 283 MPV 7.6 Neutrophils % No Result Required. Neutrophils % (Manual) 66.3 Band Neutrophils % 0.0 Lymphocytes % No Result Required. Lymphocytes % (Manual) 18.4 Monocytes % (Manual) 9 Eosinophils % (Manual) 0.0 Basophils % (Manual) 0.0 Myelocytes % (Man) 2 Promyelocytes % (Man) 1 Blast Cells % (Manual) 0 Nucleated RBC % 0 Metamyelocytes 0 Hypochromia 0 Toxic Granulation 0 Dohle Bodies 0 Platelet Estimate Normal Polychromasia 0 Poikilocytosis 0 Basophilic Stippling 0 Anisocytosis 0 Microcytosis 0 Macrocytosis 0 Spherocytes 0 Sickle Cells 0 Target Cells 0 Tear Drop Cells 0 Ovalocytes 0 Stomatocytes 0 Helmet Cells 0 [place] Bodies 0 [place] Rings 0 Reading Cells 0 Acanthocytes (Spur) 0 Rouleaux 0 Fragmented RBCs 0 Schistocytes 0 Sodium 139 Potassium 4.6 Chloride 102 Carbon Dioxide 33 H Anion Gap 4 L BUN 28 H Creatinine 0.9 Creat Clearance w eGFR > 60 Random Glucose 108 H Calcium 8.4 L Total Bilirubin 0.5 D AST 23 D ALT 62 D Alkaline Phosphatase 53 Total Protein 5.4 L Albumin 2.8 L Active Medications Generic Name Dose Route Start Last Admin Trade Name Freq PRN Reason Stop Dose Admin Acetaminophen 650 mg 05/19/17 21:33 05/19/17 21:43 Tylenol - PO 650 mg Q6H PRN Administration FEVER Albuterol Sulfate 0.5 amp 05/26/17 12:53 05/27/17 11:20 Ventolin 0.083% Nebulizer Soln - NEB 0.5 amp Q4H PRN Administration SHORT OF BREATH/WHEEZING Aspirin 81 mg 05/20/17 10:00 05/27/17 10:10 Asa - PO 81 mg DAILY [facility] Administration Furosemide 40 mg 05/25/17 10:00 05/27/17 10:10 Lasix - PO 40 mg DAILY [facility] Administration Heparin Sodium (Porcine) 5,000 unit 05/19/17 22:00 05/27/17 10:10 Heparin - SQ 5,000 unit BID [facility] Administration Ceftriaxone Sodium 1 gm/ 50 mls @ 100 mls/hr 05/27/17 10:00 05/27/17 10:09 Dextrose IVPB 100 mls/hr DAILY [facility] Administration Ipratropium [place] 1 amp 05/25/17 16:00 05/27/17 11:20 Atrovent 0.02% Nebulizer - NEB 1 amp RQID [facility] Administration Losartan Potassium 50 mg 05/20/17 10:00 05/27/17 10:10 Cozaar - PO 50 mg DAILY [facility] Administration Metoprolol Tartrate 50 mg 05/19/17 22:00 05/27/17 10:10 Lopressor - PO 50 mg BID [facility] Administration Metoprolol Tartrate 5 mg 05/20/17 08:57 05/22/17 09:31 Lopressor Injection - IVPUSH 5 mg Q4H PRN Administration HYPERTENSION Polyethylene Glycol 17 gm 05/26/17 13:30 05/27/17 10:12 Miralax (For Daily Use) - PO Not Given DAILY [facility] Prednisone 40 mg 05/28/17 10:00 Deltasone - PO DAILY [facility] Rosuvastatin Calcium 10 mg 05/20/17 10:00 05/27/17 10:14 Crestor - PO 10 mg DAILY [facility] Administration Tamsulosin HCl 0.4 mg 05/20/17 08:30 05/27/17 08:43 Flomax - PO 0.4 mg DAILY@0830 [facility] Administration ASSESSMENT/PLAN: 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 Presents to the ED on 05/19/2017 with c/o of shortness of breath. He reported chest pain associated with coughing. CT scan shows acute right upper lobe pneumonia. Pulm: Pneumonia, acute Treated with IV Ceftriaxone and Zithromycin on admission Converted to Augmentin On duonebs prn On PO Prednisone to be tapered outpatient Patient to follow up on CT scan within a 4-6 week period to re-evaluate findings of RLL mass when acute pneumonia resolved. Acute hypoxemic respiratory failure, improved but qualifies for home oxygen use Cardiology: Elevated trops No chest pain Followed by furnace erector during hospitalization Likely due to demand ischemia Acute on chronic diastolic heart failure On Lasix 40mg PO daily Monitor intake and output Atrial fibrillation, chronic On Lopressor BID Not on any anticoags due to history of ICH Hypertension, chronic Monitor BP F.E.N. Fluids: PO adequate Electrolytes: monitor Nutrition: low sodium Prophy: DVT: ambulatory Gi: deferred Disposition: full code. d/c tomorrow likely.
--- NOTE | 2017-05-27 14:32 | PN ---
Progress Note, Physician History of Present Illness: doing well breathing better no cough stable wants to go home - Current Medication List Current Medications: Active Medications Acetaminophen (Tylenol -) 650 mg PO Q6H PRN PRN Reason: FEVER Last Admin: 05/19/17 21:43 Dose: 650 mg Albuterol Sulfate (Ventolin 0.083% Nebulizer Soln -) 0.5 amp NEB Q4H PRN PRN Reason: SHORT OF BREATH/WHEEZING Last Admin: 05/27/17 11:20 Dose: 0.5 amp Aspirin (Asa -) 81 mg PO DAILY [facility] Last Admin: 05/27/17 10:10 Dose: 81 mg Furosemide (Lasix -) 40 mg PO DAILY [facility] Last Admin: 05/27/17 10:10 Dose: 40 mg Heparin Sodium (Porcine) (Heparin -) 5,000 unit SQ BID [facility] Last Admin: 05/27/17 10:10 Dose: 5,000 unit Ipratropium [place] (Atrovent 0.02% Nebulizer -) 1 amp NEB RQID [facility] Last Admin: 05/27/17 11:20 Dose: 1 amp Losartan Potassium (Cozaar -) 50 mg PO DAILY [facility] Last Admin: 05/27/17 10:10 Dose: 50 mg Metoprolol Tartrate (Lopressor -) 50 mg PO BID [facility] Last Admin: 05/27/17 10:10 Dose: 50 mg Metoprolol Tartrate (Lopressor Injection -) 5 mg IVPUSH Q4H PRN PRN Reason: HYPERTENSION Last Admin: 05/22/17 09:31 Dose: 5 mg Polyethylene Glycol (Miralax (For Daily Use) -) 17 gm PO DAILY [facility] Last Admin: 05/27/17 10:12 Dose: Not Given Prednisone (Deltasone -) 40 mg PO DAILY [facility] Rosuvastatin Calcium (Crestor -) 10 mg PO DAILY [facility] Last Admin: 05/27/17 10:14 Dose: 10 mg Tamsulosin HCl (Flomax -) 0.4 mg PO DAILY@0830 [facility] Last Admin: 05/27/17 08:43 Dose: 0.4 mg - Objective Vital Signs: Vital Signs Temperature 97.6 F 05/27/17 10:00 Pulse Rate 110 H 05/27/17 10:00 Respiratory Rate 20 05/27/17 10:00 Blood Pressure 135/85 05/27/17 10:00 O2 Sat by Pulse Oximetry (%) 94 L 05/27/17 09:00 Constitutional: Yes: No Distress, Calm Cardiovascular: Yes: Regular Rate and Rhythm Respiratory: Yes: Regular, CTA Bilaterally Gastrointestinal: Yes: Normal Bowel Sounds, Soft Musculoskeletal: Yes: WNL Extremities: Yes: WNL Neurological: Yes: Alert, Oriented Psychiatric: Yes: Alert, Oriented Labs: CBC, BMP 05/27/17 06:50 05/27/17 06:50 INR, PTT INR 1.11 (0.82-1.09) 05/19/17 10:30 Assessment/Plan Problem List - Problems (1) Atrial fibrillation Code(s): I48.91 - UNSPECIFIED ATRIAL FIBRILLATION Qualifiers: Atrial fibrillation type: permanent Qualified Code(s): I48.2 - Chronic atrial fibrillation (2) Chronic diastolic CHF (congestive heart failure) Code(s): I50.32 - CHRONIC DIASTOLIC (CONGESTIVE) HEART FAILURE (3) Elevated troponin Code(s): R74.8 - ABNORMAL LEVELS OF OTHER SERUM ENZYMES (4) Hypertensive heart disease Code(s): I11.9 - HYPERTENSIVE HEART DISEASE WITHOUT HEART FAILURE Qualifiers: Heart failure type: diastolic Heart failure chronicity: chronic (5) Pneumonia Code(s): J18.9 - PNEUMONIA, UNSPECIFIED ORGANISM Qualifiers: Lung location: unspecified part of lung (6) Acute hypoxemic respiratory failure Code(s): J96.01 - ACUTE RESPIRATORY FAILURE WITH HYPOXIA plan switched to po abx continue current mgmt monitor o2 incentive kelly rest as per primary team
--- NOTE | 2017-05-27 15:30 | DS ---
Physical Exam: SUBJECTIVE: Patient seen and examined OBJECTIVE: Vital Signs Period Temp Pulse Resp BP Sys/Hagen Pulse Ox Last 24 Hr 97.6 F-98.5 F 94-110 18-20 119-145/79-85 90-94 PHYSICAL EXAM GENERAL: The patient is awake, alert, and fully oriented, in no acute distress. HEAD: Normal with no signs of trauma. EYES: PERRL, extraocular movements intact, sclera anicteric, conjunctiva clear. ENT: Ears normal, nares patent, oropharynx clear without exudates, moist mucous membranes. NECK: Trachea midline, full range of motion, supple. LUNGS: Breath sounds equal, clear to auscultation bilaterally, no wheezes, no crackles, no accessory muscle use. HEART: Regular rate and rhythm, S1, S2 without murmur, rub or gallop. ABDOMEN: Soft, nontender, nondistended, normoactive bowel sounds, no guarding, no rebound, no hepatosplenomegaly, no masses. EXTREMITIES: 2+ pulses, warm, well-perfused, no edema. NEUROLOGICAL: Cranial nerves II through XII grossly intact. Normal speech, gait not observed. PSYCH: Normal mood, normal affect. SKIN: Warm, dry, normal turgor, no rashes or lesions noted. LABS Laboratory Results - last 24 hr 05/27/17 05/27/17 06:50 06:50 WBC 11.8 H RBC 4.16 Hgb 13.3 Hct 39.5 MCV 94.8 MCH 31.9 MCHC 33.7 RDW 14.0 Plt Count 283 MPV 7.6 Neutrophils % No Result Required. Neutrophils % (Manual) 66.3 Band Neutrophils % 0.0 Lymphocytes % No Result Required. Lymphocytes % (Manual) 18.4 Monocytes % (Manual) 9 Eosinophils % (Manual) 0.0 Basophils % (Manual) 0.0 Myelocytes % (Man) 2 Promyelocytes % (Man) 1 Blast Cells % (Manual) 0 Nucleated RBC % 0 Metamyelocytes 0 Hypochromia 0 Toxic Granulation 0 Dohle Bodies 0 Platelet Estimate Normal Polychromasia 0 Poikilocytosis 0 Basophilic Stippling 0 Anisocytosis 0 Microcytosis 0 Macrocytosis 0 Spherocytes 0 Sickle Cells 0 Target Cells 0 Tear Drop Cells 0 Ovalocytes 0 Stomatocytes 0 Helmet Cells 0 [place] Bodies 0 [place] Rings 0 [place] Cells 0 Acanthocytes (Spur) 0 Rouleaux 0 Fragmented RBCs 0 Schistocytes 0 Sodium 139 Potassium 4.6 Chloride 102 Carbon Dioxide 33 H Anion Gap 4 L BUN 28 H Creatinine 0.9 Creat Clearance w eGFR > 60 Random Glucose 108 H Calcium 8.4 L Total Bilirubin 0.5 D AST 23 D ALT 62 D Alkaline Phosphatase 53 Total Protein 5.4 L Albumin 2.8 L HOSPITAL COURSE: Date of Admission:05/19/17 Date of Discharge: 05/27/17 Discharge Summary Reason For Visit: PNEUMONIA Current Active Problems Acute hypoxemic respiratory failure (Acute) Acute on chronic diastolic heart failure (Acute) Atrial fibrillation (Acute) BPH (benign prostatic hyperplasia) (Acute) Chronic diastolic CHF (congestive heart failure) (Acute) Coronary artery disease (Acute) Elevated troponin (Acute) HTN (hypertension) (Acute) Hypertensive heart disease (Acute) Pneumonia (Acute) Stented coronary artery (Acute) Condition: Stable - Instructions Referrals: Linsey Renee MD [Primary Care Provider] - - Home Medications Comprehensive Discharge Medication List: Ambulatory Orders Furosemide [Lasix] 40 mg PO DAILY 10/23/11 Aspirin [ASA -] 81 mg PO DAILY 05/19/17 Losartan Potassium 50 mg PO DAILY 05/19/17 Metoprolol Tartrate 50 mg PO BID 05/19/17 Rosuvastatin Calcium 10 mg PO DAILY 05/19/17 Silodosin [Rapaflo] 8 mg PO DAILY 05/19/17
--- NOTE | 2017-05-27 17:02 | PN ---
Progress Note, Physician History of Present Illness: Patient is a 77 white man with history of diastolic CHF, afib (on no anticoagulation; hx falls) here today complaining of shortness of breath. He describes a worsening cough over the past 2-3 days with worsening today. The cough is productive with red-tinged sputum. He reports chest pain associated with coughing. He reports fevers, chills. Denies history of COPD. Denies nausea , vomiting. Denies leg swelling, rash. PCP: Dianelys Admitting: Praveen Cards: Angelo - Current Medication List Current Medications: Active Medications Acetaminophen (Tylenol -) 650 mg PO Q6H PRN PRN Reason: FEVER Last Admin: 05/19/17 21:43 Dose: 650 mg Albuterol Sulfate (Ventolin 0.083% Nebulizer Soln -) 0.5 amp NEB Q4H PRN PRN Reason: SHORT OF BREATH/WHEEZING Last Admin: 05/27/17 11:20 Dose: 0.5 amp Amoxicillin/Clavulanate Potassium (Augmentin - 500mg Tablet) 1 tab PO BID@0800, 1730 [facility] Aspirin (Asa -) 81 mg PO DAILY [facility] Last Admin: 05/27/17 10:10 Dose: 81 mg Furosemide (Lasix -) 40 mg PO DAILY [facility] Last Admin: 05/27/17 10:10 Dose: 40 mg Heparin Sodium (Porcine) (Heparin -) 5,000 unit SQ BID [facility] Last Admin: 05/27/17 10:10 Dose: 5,000 unit Ipratropium [place] (Atrovent 0.02% Nebulizer -) 1 amp NEB RQID [facility] Last Admin: 05/27/17 11:20 Dose: 1 amp Losartan Potassium (Cozaar -) 50 mg PO DAILY [facility] Last Admin: 05/27/17 10:10 Dose: 50 mg Metoprolol Tartrate (Lopressor -) 50 mg PO BID [facility] Last Admin: 05/27/17 10:10 Dose: 50 mg Metoprolol Tartrate (Lopressor Injection -) 5 mg IVPUSH Q4H PRN PRN Reason: HYPERTENSION Last Admin: 05/22/17 09:31 Dose: 5 mg Polyethylene Glycol (Miralax (For Daily Use) -) 17 gm PO DAILY [facility] Last Admin: 05/27/17 10:12 Dose: Not Given Prednisone (Deltasone -) 40 mg PO DAILY [facility] Rosuvastatin Calcium (Crestor -) 10 mg PO DAILY [facility] Last Admin: 05/27/17 10:14 Dose: 10 mg Tamsulosin HCl (Flomax -) 0.4 mg PO DAILY@0830 [facility] Last Admin: 05/27/17 08:43 Dose: 0.4 mg - Objective Vital Signs: Vital Signs Temperature 97.6 F 05/27/17 10:00 Pulse Rate 94 H 05/27/17 14:45 Respiratory Rate 20 05/27/17 10:00 Blood Pressure 135/85 05/27/17 10:00 O2 Sat by Pulse Oximetry (%) 90 L 05/27/17 14:45 Eyes: Yes: WNL, Conjunctiva Clear, EOM Intact HENT: Yes: WNL, Atraumatic, Normocephalic Neck: Yes: WNL, Supple, Trachea Midline Cardiovascular: Yes: Pulse Irregular, S1, S2 Respiratory: Yes: WNL, Regular, CTA Bilaterally Gastrointestinal: Yes: WNL, Normal Bowel Sounds Genitourinary: Yes: WNL Musculoskeletal: Yes: WNL Extremities: Yes: WNL Edema: No Integumentary: Yes: WNL Neurological: Yes: WNL, Alert, Oriented ...Motor Strength: WNL Psychiatric: Yes: WNL Labs: CBC, BMP 05/27/17 06:50 05/27/17 06:50 INR, PTT INR 1.11 (0.82-1.09) 05/19/17 10:30 Assessment/Plan IMP: Atrial fibrillation, permanent, now with RVR secondary to fever from suspected PNA Underlying CAD with h/o PCI Chronic diastolic CHF, with mild exacerbation due to AF w/ RVR PNA, RUL on CT RLL Lung Mass Elevated TnI REC: 1. AF w/ RVR: -triggered by infection -Cont. Metoprolol 50mg BID -Tele now d/c'd -Not on chronic full AC due to prior fall w/ traumatic ICH (patient refused to resume AC) -Cont. ASA 2. PNA: RUL confirmed on CT; RLL Mass -Pulmonary following -Follow cultures -Abx as per PMD -Minimize use albuterol if possible. Recommend Xopenex if available. -DVT prophylaxis -Will need outpatient work up of RLL mass when acute PNA resolved. 3. Chronic diastolic CHF with acute exacerbation: -Mildly volume overloaded, likely triggered by infection leading to AF w/ RVR -He will also be receiving extra volume with IV abx -BUN bumped. D/C IV Lasix and switch to PO tomorrow -Daily lytes -repeat echo shows normal LV function 4. Minimally elevated TnI: -Likely due to infection/SIRS/fever driving AF with RVR and demand ischemia causing mild acute on chronic diastolic CHF. Continue ASA. Doubt primary ACS event as the enzyme trend is flat.
[2017-05-27] MEDS: AMOX TR/POT CLAV 500MG/125MG TABLETS (FP) PO SCH (17:28)
[2017-05-28] MEDS: ALBUTEROL SO4 0.083% IH SOL 2.5 MG/3 ML VIAL.NEB. NEB PRN (07:35)
[2017-05-28] MEDS: IPRATROPIUM BR 0.02% 0.5 MG/2.5 ML VIAL.NEB. NEB SCH (07:35)
[2017-05-28] MEDS: LOSARTAN POTASSIUM 50 MG TABLET (FP) PO SCH (09:02)
[2017-05-28] MEDS: METOPROLOL TARTRATE 50 MG TABLET (FP) PO SCH (09:02)
[2017-05-28] MEDS: TAMSULOSIN HCL 0.4 MG CAP.ER.24H (FP) PO SCH (09:02)
[2017-05-28] MEDS: ASPIRIN 81 MG CHEWABLE TABLETS PO SCH (09:02)
[2017-05-28] MEDS: FUROSEMIDE 40 MG TABLET (FP) PO SCH (09:02)
[2017-05-28] MEDS: AMOX TR/POT CLAV 500MG/125MG TABLETS (FP) PO SCH (09:02)
[2017-05-28] MEDS: HEPARIN NA (PORCINE) 5,000 UNITS/ML 1ML VIAL SQ SCH (09:03)
[2017-05-28] MEDS: ROSUVASTATIN CA 10 MG TABLET (FP) PO SCH (09:03)
[2017-05-28] MEDS: POLYETHYLENE GLYCOL 3350 119 GM BTL PO SCH (09:03)
--- NOTE | 2017-05-28 09:19 | DS ---
Physical Exam: SUBJECTIVE: Patient seen and examined. Sitting in chair, in no acute distress c/o of not sleeping, ready to go home OBJECTIVE: will d/c with prednisone taper, augmentin for 6 more day and oxygen therapy @ 2 liters Vital Signs Period Temp Pulse Resp BP Sys/Hagen Pulse Ox Last 24 Hr 97.4 F-97.8 F 80-110 18-20 134-137/74-98 90-95 PHYSICAL EXAM GENERAL: The patient is awake, alert, and fully oriented, in no acute distress. HEAD: Normal with no signs of trauma. EYES: PERRL, extraocular movements intact, sclera anicteric, conjunctiva clear. No ptosis. ENT: Ears normal, nares patent, oropharynx clear without exudates, moist mucous membranes. LUNGS: Lungs sounds clear, right lower lobe with diminished breath sounds, but improved today HEART: Regular rate and rhythm ABDOMEN: Soft, nontender, nondistended, normoactive bowel sounds, no guarding, no rebound, no hepatosplenomegaly, no masses. EXTREMITIES: no edema, on compression stockings NEUROLOGICAL: Normal speech, gait not observed. PSYCH: Normal mood, normal affect. SKIN: Warm, dry, normal turgor, no rashes or lesions noted LABS Laboratory Results - last 24 hr 05/27/17 06:50 Neutrophils % (Manual) 66.3 Band Neutrophils % 0.0 Lymphocytes % (Manual) 18.4 Monocytes % (Manual) 9 Eosinophils % (Manual) 0.0 Basophils % (Manual) 0.0 Myelocytes % (Man) 2 Promyelocytes % (Man) 1 Blast Cells % (Manual) 0 Nucleated RBC % 0 Metamyelocytes 0 Hypochromia 0 Toxic Granulation 0 Dohle Bodies 0 Platelet Estimate Normal Polychromasia 0 Poikilocytosis 0 Basophilic Stippling 0 Anisocytosis 0 Microcytosis 0 Macrocytosis 0 Spherocytes 0 Sickle Cells 0 Target Cells 0 Tear Drop Cells 0 Ovalocytes 0 Stomatocytes 0 Helmet Cells 0 [place] Bodies 0 [place] Rings 0 [place] Cells 0 Acanthocytes (Spur) 0 Rouleaux 0 Fragmented RBCs 0 Schistocytes 0 HOSPITAL COURSE: Date of Admission:05/19/17 Date of Discharge: 05/28/17 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 Presents to the ED on 05/19/2017 with c/o of shortness of breath. He reported chest pain associated with coughing. CT scan shows acute right upper lobe pneumonia. Pulm: Sepsis secondary to pneumonia, acute/improving/continue antibiotics of Augmentin 500mg for 6 more days (through June 03) Acute hypoxemic respiratory failure, improved but qualifies for home oxygen use , improved with oxygen Treated with IV Ceftriaxone and Zithromycin during hospitalization On duonebs prn On PO Prednisone to be tapered outpatient as outlined below Patient to follow up on CT scan within a 4-6 week period to re-evaluate findings of RLL mass when acute pneumonia resolved. COPD (chronic obstructive pulmonary disease), chronic on home oxygen therapy, prednisone taper Cardiology: Elevated trops No chest pain Followed by senior java programmer analyst during hospitalization Likely due to demand ischemia Outpatient follow up if symptoms persist, referral on d/c instructions Acute on chronic diastolic heart failure, chronic On Lasix 40mg PO daily Monitor intake and output Monitor potassium levels Coronary artery disease, chronic On Crestor, ASA Atrial fibrillation, chronic On Lopressor BID Not on any anticoags due to history of ICH Hypertension, chronic Monitor BP : BPH (benign prostatic hyperplasia), chronic Continue home meds Disposition: full code. Discharge back to patient's home facility. Please note that Patient to follow up on CT scan within a 4-6 week period to re- evaluate findings of RLL mass when acute pneumonia resolved. Minutes to complete discharge: 60 Discharge Summary Reason For Visit: PNEUMONIA Current Active Problems Acute hypoxemic respiratory failure (Acute) Acute on chronic diastolic heart failure (Acute) Atrial fibrillation (Acute) BPH (benign prostatic hyperplasia) (Acute) COPD (chronic obstructive pulmonary disease) (Acute) Chronic diastolic CHF (congestive heart failure) (Acute) Coronary artery disease (Acute) Elevated troponin (Acute) HTN (hypertension) (Acute) Hypertensive heart disease (Acute) Pneumonia (Acute) Sepsis (Acute) Stented coronary artery (Acute) Condition: Stable - Instructions Diet, Activity, Other Instructions: [place]: Please continue the Augmentin antibiotics for the pneumonia for six (6) more days. You should finish your antibiotics by June 03. Prednisone should be tapered off as follows: 05/28/2017 Prednisone 40mg daily (given to you while you were in the hospital) 05/29/2017 Prednisone 30mg daily in the morning 05/30/2017 Prednisone 20mg daily in the morning 05/31/2017 Prednisone 10mg daily in the morning, this is your last dose Please call me with any questions that you may have. Continue all other medications as indicated in your discharge packet. Jennifer Herr NP [facility] [phone] Referrals: Linsey Renee MD [Primary Care Provider] - Brady Blackwell MD [Staff Physician] - 2 Weeks Disposition: HOME - Home Medications Comprehensive Discharge Medication List: Ambulatory Orders Aspirin [ASA -] 81 mg PO DAILY 05/19/17 Losartan Potassium 50 mg PO DAILY 05/19/17 Metoprolol Tartrate 50 mg PO BID 05/19/17 Rosuvastatin Calcium 10 mg PO DAILY 05/19/17 Silodosin [Rapaflo] 8 mg PO DAILY 05/19/17 Amox-Tr/K Cl [Augmentin 500-125mg Tablet -] 1 tab PO BID@0800,1730 #14 tablet Furosemide [Lasix -] 40 mg PO DAILY 30 Days #30 tablet 05/28/17 predniSONE [Deltasone -] 40 mg PO DAILY 3 Days #7 tablet 05/28/17 This patient is new to me today: No Emergency Visit: Yes ED Registration Date: 05/19/17 Care time: The patient presented to the Emergency Department on the above date and was hospitalized for further evaluation of their emergent condition. Critical Care patient: No - Discharge Referral Referred to [facility] No
[2017-05-28] MEDS ORDERED: predniSONE 20 MG TABLET (UD) PO SCH (10:00)
[2017-05-28 10:32] VITALS: BP 145/78; PULSE 101; TEMP 98
== END 2017-05-28 10:33 | disposition home or self-care (01) | DRG 871 ==
LOC: JER 09:33 → JERBED 12:31 → J4W 20:44 → J6S 05-25 18:30
PROVIDERS: ADMIT Internal Medicine; ATTEND Nurse Practitioner Family
DX: A41.9 Sepsis, unspecified organism (principal); J18.9 Pneumonia, unspecified organism; J96.01 Acute respiratory failure with hypoxia; I50.33 Acute on chronic diastolic (congestive) heart failure; I24.8 Other forms of acute ischemic heart disease; I11.0 Hypertensive heart disease with heart failure; I48.2 Chronic atrial fibrillation; I25.10 Atherosclerotic heart disease of native coronary artery without angina pectoris; Z98.61 Coronary angioplasty status; J44.9 Chronic obstructive pulmonary disease, unspecified; N40.0 Benign prostatic hyperplasia without lower urinary tract symptoms; R91.8 Other nonspecific abnormal finding of lung field; J06.9 Acute upper respiratory infection, unspecified; E87.70 Fluid overload, unspecified
CPT/HCPCS: 36415; 71045-TC-FY; 71250-TC; 80048; 80053; 80061; 81003; 82550; 82553; 82803; 83605; 83721; 83735; 83880; 84443; 84484; 85025; 85610; 85730; 87040; 87086; 87804; 93005; 93010; 93306-TC; 94640; 94761; 99285-25; J0131; J1644; J7030

== ENCOUNTER 2023-04-23 04:10 | Day surgery (SDC) | payer OTHER ==
[2023-04-19 10:54] VITALS: BMI 31.5
[2023-04-23 08:12] VITALS: RESP 18
[2023-04-23] MEDS ORDERED: ACETAMINOPHEN 500 MG TABLET (FP) PO PRN (08:26)
[2023-04-23] MEDS ORDERED: LIDOCAINE HCL/PF 1% SDV 5ML VIAL ONE (08:36)
[2023-04-23] MEDS ORDERED: DEXAMETHASONE SOD PHOSPHATE 10 MG/1 ML VIAL ONE (08:36)
[2023-04-23] MEDS: LIDOCAINE 1% P/F 10 MG/ML VIAL INF ONE (09:57)
[2023-04-23] MEDS: DEXAMETHASONE SOD PHOSPHATE 10 MG/1 ML VIAL IVPUSH ONE (09:57)
[2023-04-23] MEDS: IOHEXOL 180 MG/1 ML ML IJ ONE (10:02)
[2023-04-23 11:34] VITALS: BP 152/70; PULSE 80; TEMP 98.4
== END 2023-04-23 11:15 | disposition home or self-care (01) ==
LOC: JASU-SURG 04:10
PROVIDERS: ATTEND Pain Medicine Pain Medicine
PROC: 3E0R3BZ Introduction of Anesthetic Agent into Spinal Canal, Percutaneous Approach (ICD-10-PCS; 2023-04-23)
PROC: 3E0R33Z Introduction of Anti-inflammatory into Spinal Canal, Percutaneous Approach (ICD-10-PCS; principal; 2023-04-23 08:45)
DX: M54.16 Radiculopathy, lumbar region (principal)
CPT/HCPCS: J1100

== ENCOUNTER 2023-05-21 05:01 | Day surgery (SDC) | payer OTHER ==
[2023-05-16 13:55] VITALS: BMI 31.6
[2023-05-21] MEDS ORDERED: LIDOCAINE HCL/PF 1% SDV 5ML VIAL ONE (07:09)
[2023-05-21] MEDS ORDERED: BUPIVACAINE HCL/PF 0.75% 10 ML VIAL ONE (07:09)
[2023-05-21 07:19] VITALS: RESP 18
[2023-05-21] MEDS: BUPIVACAINE HCL/PF 0.75% 10 ML VIAL NR ONE (08:38)
[2023-05-21] MEDS: LIDOCAINE 1% P/F 10 MG/ML VIAL INF ONE (08:38)
[2023-05-21 08:59] VITALS: BP 128/84; PULSE 68; TEMP 97.8
[2023-05-21] MEDS ORDERED: ACETAMINOPHEN 500 MG TABLET (FP) PO PRN (12:10)
== END 2023-05-21 09:55 | disposition home or self-care (01) ==
LOC: JASU-SURG 05:01
PROVIDERS: ATTEND Pain Medicine Pain Medicine
PROC: 3E0T33Z Introduction of Anti-inflammatory into Peripheral Nerves and Plexi, Percutaneous Approach (ICD-10-PCS; 2023-05-21)
PROC: 3E0T3BZ Introduction of Anesthetic Agent into Peripheral Nerves and Plexi, Percutaneous Approach (ICD-10-PCS; principal; 2023-05-21 08:30)
DX: M47.816 Spondylosis without myelopathy or radiculopathy, lumbar region (principal)
CPT/HCPCS: 76000-TC-FY

== ENCOUNTER 2023-07-02 04:26 | Day surgery (SDC) | payer OTHER ==
[2023-06-12 11:30] VITALS: BMI 31.6
[~2023-07-02 04:26] MED LIST: ACETAMINOPHEN 500 MG TABLET (FP) PO PRN
[2023-07-02] MEDS ORDERED: LIDOCAINE HCL/PF 1% SDV 5ML VIAL ONE (07:37)
[2023-07-02] MEDS ORDERED: BUPIVACAINE HCL/PF 0.75% 10 ML VIAL ONE (07:37)
[2023-07-02] MEDS: LIDOCAINE HCL 1% PRESERVATIVE FREE - 30ML VIAL IJ ONE ×2 (13:24)
[2023-07-02] MEDS: BUPIVACAINE HCL/PF 0.75% 10 ML VIAL NR ONE ×2 (13:25)
[2023-07-02] MEDS ORDERED: ACETAMINOPHEN 500 MG TABLET (FP) PO PRN (15:13)
[2023-07-02 15:14] VITALS: BP 137/75; PULSE 71; RESP 18; TEMP 97.8
== END 2023-07-02 14:35 | disposition home or self-care (01) ==
LOC: JASU-SURG 04:26
PROVIDERS: ATTEND Pain Medicine Pain Medicine
PROC: 3E0T33Z Introduction of Anti-inflammatory into Peripheral Nerves and Plexi, Percutaneous Approach (ICD-10-PCS; 2023-07-02)
PROC: 3E0T3BZ Introduction of Anesthetic Agent into Peripheral Nerves and Plexi, Percutaneous Approach (ICD-10-PCS; principal; 2023-07-02 13:15)
DX: M47.816 Spondylosis without myelopathy or radiculopathy, lumbar region (principal)
CPT/HCPCS: 76000-TC-FY

== ENCOUNTER 2023-08-02 04:41 | Day surgery (SDC) | payer OTHER ==
[2023-07-25 10:56] VITALS: BMI 31.6
[2023-08-02] MEDS ORDERED: LIDOCAINE HCL/PF 1% SDV 5ML VIAL ONE (07:13)
[2023-08-02] MEDS ORDERED: DEXAMETHASONE SOD PHOSPHATE 10 MG/1 ML VIAL ONE (07:13)
[2023-08-02] MEDS ORDERED: BUPIVACAINE HCL/PF 0.75% 10 ML VIAL ONE (07:13)
[2023-08-02] MEDS ORDERED: ACETAMINOPHEN 500 MG TABLET (FP) PO PRN (11:15)
[2023-08-02] MEDS: LIDOCAINE HCL 1% PRESERVATIVE FREE - 30ML VIAL IJ ONE (13:44)
[2023-08-02] MEDS: DEXAMETHASONE SOD PHOSPHATE 10 MG/1 ML VIAL IVPUSH ONE (13:44)
[2023-08-02] MEDS: LIDOCAINE HCL/PF 2% SDV 5ML VIAL INF ONE (13:44)
[2023-08-02] MEDS: BUPIVACAINE HCL/PF 0.75% 10 ML VIAL NR ONE (13:44)
[2023-08-02] MEDS: IOHEXOL 180 MG/1 ML ML IJ ONE (13:44)
[2023-08-02 14:40] VITALS: RESP 18
[2023-08-02 15:01] VITALS: BP 124/76; PULSE 70; TEMP 98.2
== END 2023-08-02 15:07 | disposition home or self-care (01) ==
LOC: JASU-SURG 04:41
PROVIDERS: ATTEND Pain Medicine Pain Medicine
PROC: 015B3ZZ Destruction of Lumbar Nerve, Percutaneous Approach (ICD-10-PCS; principal; 2023-08-02 14:00)
DX: M47.816 Spondylosis without myelopathy or radiculopathy, lumbar region (principal)
CPT/HCPCS: 76000-TC-FY; J1100

== ENCOUNTER 2023-09-05 04:19 | Day surgery (SDC) | payer OTHER ==
[2023-08-28 16:43] VITALS: BMI 31.5
[2023-09-05] MEDS ORDERED: ACETAMINOPHEN 500 MG TABLET (FP) PO PRN (11:10)
[2023-09-05] MEDS: LIDOCAINE HCL 1% PRESERVATIVE FREE - 30ML VIAL IJ ONE (14:27)
[2023-09-05] MEDS: LIDOCAINE HCL/PF 2% SDV 5ML VIAL INF ONE (14:34)
[2023-09-05] MEDS: BUPIVACAINE HCL/PF 0.75% 10 ML VIAL NR ONE (14:41)
[2023-09-05] MEDS: DEXAMETHASONE SOD PHOSPHATE 10 MG/1 ML VIAL IM ONE (14:41)
[2023-09-05 15:47] VITALS: BP 126/57; PULSE 65; RESP 16; TEMP 98.2
== END 2023-09-05 15:35 | disposition home or self-care (01) ==
LOC: JASU-SURG 04:19
PROVIDERS: ATTEND Pain Medicine Pain Medicine
PROC: 015B3ZZ Destruction of Lumbar Nerve, Percutaneous Approach (ICD-10-PCS; 2023-09-05)
PROC: 015B3ZZ Destruction of Lumbar Nerve, Percutaneous Approach (ICD-10-PCS; principal; 2023-09-05 13:15)
DX: M47.816 Spondylosis without myelopathy or radiculopathy, lumbar region (principal)
CPT/HCPCS: 76000-TC-FY; J1100

== ENCOUNTER 2023-10-24 04:28 | Day surgery (SDC) | payer OTHER ==
[2023-10-23 11:04] VITALS: BMI 29.8
[2023-10-24] MEDS ORDERED: LIDOCAINE HCL/PF 1% SDV 5ML VIAL ONE (07:37)
[2023-10-24] MEDS: LIDOCAINE HCL 1% PRESERVATIVE FREE - 30ML VIAL IJ ONE (10:13)
[2023-10-24 10:49] VITALS: RESP 18
[2023-10-24 12:10] VITALS: BP 119/49; PULSE 84; TEMP 97.7
== END 2023-10-24 12:12 | disposition home or self-care (01) ==
LOC: JASU-SURG 04:28
PROVIDERS: ATTEND Pain Medicine Pain Medicine
PROC: 01HY3MZ Insertion of Neurostimulator Lead into Peripheral Nerve, Percutaneous Approach (ICD-10-PCS; principal; 2023-10-24 09:30)
DX: G89.4 Chronic pain syndrome (principal); M25.512 Pain in left shoulder
CPT/HCPCS: 64555; C1778

== ENCOUNTER 2024-01-31 04:05 | Day surgery (SDC) | payer OTHER ==
[2024-01-31] MEDS ORDERED: LIDOCAINE HCL/PF 1% SDV 5ML VIAL ONE (07:22)
[2024-01-31] MEDS ORDERED: DEXAMETHASONE SOD PHOSPHATE 10 MG/1 ML VIAL ONE (07:22)
[2024-01-31] MEDS ORDERED: BUPIVACAINE HCL/PF 0.25% (2.5MG/ML) 10 ML VIAL ONE (07:22)
[2024-01-31] MEDS ORDERED: LIDOCAINE HCL/PF 2% SDV 5ML VIAL ONE (07:31)
[2024-01-31 14:51] VITALS: RESP 18; TEMP 98
[2024-01-31 15:54] VITALS: BP 135/69; PULSE 71
== END 2024-01-31 15:15 | disposition home or self-care (01) ==
LOC: JASU-SURG 04:05
PROVIDERS: ATTEND Pain Medicine Pain Medicine
PROC: 01HY3MZ Insertion of Neurostimulator Lead into Peripheral Nerve, Percutaneous Approach (ICD-10-PCS; principal; 2024-01-31 12:30)
DX: G89.4 Chronic pain syndrome (principal); M25.512 Pain in left shoulder
CPT/HCPCS: 64555; C1778; J1100